=== PATIENT | female | born 2000 | race African-American/Black ===

== ENCOUNTER 2019-08-28 18:16 | Observation (INO) | payer OTHER, SELFPAY ==
[2019-08-28] VITALS (11 sets, daily range): BP systolic 101–110; BP diastolic 48–62; PULSE 90–122; TEMP 36.9; O2SAT 98–100; BMI 27.0
--- NOTE | 2019-08-28 18:16 | OBADM ---
This patient, Sayra Hsu, admitted to the OB room OB Post 117 for observation. Patient/family oriented to hospital policies and general routines including ID bracelet, bed and alarms, visiting hours, pain management, procedures, bathroom and other care routines, personal items, smoking policy, room service/diet, and visiting hours. Patient/Family are encouraged to report perceived risks to care and to ask questions if they do not understand what they are told or what they should do.
[2019-08-28 19:04] LABS: Add Urine Microscopic? YES; Appearance Urine Clear (Clear); Bacteria Urine Trace /hpf; Bilirubin Urine Negative (Negative); Blood Urine Negative (Negative); Color Urine Yellow (Yellow); Glucose Urine UA Negative (Negative); Ketones Urine Trace mg/dL (Negative); Leukocyte Esterase Ur 1+ LEU/UL (Negative); Mucus Urine Rare /lpf; Nitrate Urine Negative (Negative); Protein Urine 1+ mg/dL (Negative); RBC Urine 0-2 /hpf (0-2); Squamous Epithelial Cell Urine Many /hpf (Few)
[2019-08-28 19:08] LABS: Specific Grav Ur 1.032 (1.001-1.035)
--- NOTE | 2019-08-28 19:41 | PC.NURSE ---
Updated Dr. Cotton of S[facility] 1/thick/high. Patient uterus irritable with occasional contractions. Orders given.
[2019-08-28] MEDS: TERBUTALINE SULFATE 1 MG/ML VIAL 0.25 MG SUB-Q (19:54)
--- NOTE | 2019-08-28 21:25 | PC.NURSE ---
Dr. Cotton updated on Uterine activity, FHT, VS, maternal assessment. Patient requesting to be discharged to home. Discharge orders received.
--- NOTE | 2019-08-28 21:35 | PC.NURSE ---
Discharge instructions reviewed with patient. labor precautions reviewed. Patient states understanding of discharge instructions and denies questions.
--- NOTE | 2019-09-01 07:24 | P.PNOB_ITS ---
OB - Triage/Final Diagnosis Evaluation Laboratory results: Laboratory Tests 08/28/19 18:52 Urine Color Yellow Urine Appearance Clear Urine pH 6.0 Ur Specific [place] 1.032 Urine Protein 1+ H Urine Glucose (UA) Negative Urine Ketones Trace Ur Blood (Man) Negative Urine Nitrate Negative Urine Bilirubin Negative Urine Urobilinogen 2.0 H Leukocyte Esterase Rfl 1+ H Urine RBC 0-2 Urine WBC 4-6 H Ur Squamous Epith Cells Many H Urine Bacteria Trace Urine Mucus Rare Final Diagnosis (1) contractions: Code(s): O47.9 - False labor, unspecified Status: Acute
== END 2019-08-28 21:39 | disposition home or self-care (01) ==
PROVIDERS: Admitting Provider Obstetrics & Gynecology; Visit Provider Obstetrics & Gynecology
DX: O47.03 False labor before 37 completed weeks of gestation, third trimester (principal); Z3A.30 30 weeks gestation of pregnancy
CPT/HCPCS: 81001; 84112; 96372; G0378; G0379; J3105

== ENCOUNTER 2019-09-20 14:54 | Observation (INO) | payer OTHER, SELFPAY ==
[2019-09-20] VITALS (7 sets, daily range): BP systolic 93–143; BP diastolic 50–105; PULSE 90–111; TEMP 36.1; BMI 27.3
--- NOTE | 2019-09-20 14:54 | OBADM ---
This patient, Sayra Hsu, admitted to the OB room OB Post 116 for observation. Patient/family oriented to hospital policies and general routines including ID bracelet, bed and alarms, visiting hours, pain management, procedures, bathroom and other care routines, personal items, smoking policy, room service/diet, and visiting hours. Patient/Family are encouraged to report perceived risks to care and to ask questions if they do not understand what they are told or what they should do.
[2019-09-20 15:58] LABS: Add Urine Microscopic? YES; Appearance Urine Clear (Clear); Bacteria Urine Trace /hpf; Bilirubin Urine Negative (Negative); Blood Urine Negative (Negative); Color Urine Yellow (Yellow); Glucose Urine UA Negative (Negative); Ketones Urine Negative (Negative); Leukocyte Esterase Ur Negative LEU/UL (NEGATIVE); Mucus Urine Rare /lpf; Nitrate Urine Negative (Negative); Protein Urine Negative (Negative); RBC Urine 0-2 /hpf (0-2); Specific Grav Ur 1.023 (1.001-1.035); Squamous Epithelial Cell Urine Many /hpf (Few)
[2019-09-20] MEDS: NIFEdipine 30 MG TAB.ER.24 PO (16:50)
--- NOTE | 2019-09-20 19:00 | PC.NURSE ---
Discussed with pt and S.O. plan of care after no change from [facility]. Pt chose to be discharged home. Instructed pt to return to the hospital if any increase in contractions. Verbalized understanding.
--- NOTE | 2019-09-23 07:40 | PM.OBTRLD ---
OB - Triage/Final Diagnosis Evaluation Laboratory results: Laboratory Tests 09/20/19 15:44 Urine Color Yellow Urine Appearance Clear Urine pH 7.0 Ur Specific [place] 1.023 Urine Protein Negative Urine Glucose (UA) Negative Urine Ketones Negative Ur Blood (Man) Negative Urine Nitrate Negative Urine Bilirubin Negative Urine Urobilinogen 2.0 H Ur Leukocyte Esterase Negative Urine RBC 0-2 Urine WBC 4-6 H Ur Squamous Epith Cells Many H Urine Bacteria Trace Urine Mucus Rare
--- NOTE | 2019-10-12 10:15 | PM.OBTRLD ---
OB - Triage/Final Diagnosis Visit Information Date of evaluation: 09/20/19 Evaluation Laboratory results: Laboratory Tests 09/20/19 15:44 Urine Color Yellow Urine Appearance Clear Urine pH 7.0 Ur Specific [place] 1.023 Urine Protein Negative Urine Glucose (UA) Negative Urine Ketones Negative Ur Blood (Man) Negative Urine Nitrate Negative Urine Bilirubin Negative Urine Urobilinogen 2.0 H Ur Leukocyte Esterase Negative Urine RBC 0-2 Urine WBC 4-6 H Ur Squamous Epith Cells Many H Urine Bacteria Trace Urine Mucus Rare Final Diagnosis (1) False labor: Code(s): O47.9 - False labor, unspecified Status: Acute
== END 2019-09-20 19:13 | disposition home or self-care (01) ==
PROVIDERS: Admitting Provider Obstetrics & Gynecology; Visit Provider Obstetrics & Gynecology
DX: O47.03 False labor before 37 completed weeks of gestation, third trimester (principal); Z3A.34 34 weeks gestation of pregnancy
CPT/HCPCS: 81001; 87086; A9270; G0378; G0379

== ENCOUNTER 2019-10-10 00:14 | Observation (INO) | payer OTHER, SELFPAY ==
[2019-10-10] VITALS (15 sets, daily range): BP systolic 78–114; BP diastolic 32–69; PULSE 75–114; TEMP 36.6–37; BMI 27.0
--- NOTE | 2019-10-10 00:14 | OBADM ---
This patient, Sayra Hsu, admitted to the OB room Labor/Delivery/Recovery 109 for observation. Patient/family oriented to hospital policies and general routines including ID bracelet, bed and alarms, visiting hours, pain management, procedures, bathroom and other care routines, personal items, smoking policy, room service/diet, and visiting hours. Patient/Family are encouraged to report perceived risks to care and to ask questions if they do not understand what they are told or what they should do.
--- NOTE | 2019-10-10 00:14 | LDADM ---
This patient, Sayra Hsu, was admitted to Labor/Delivery/Recovery 109 on 10/10/19 at 00:14. Plans for labor, pain management and were discussed with patient. Patient/family oriented to hospital policies and general routines including ID bracelet, bed and alarms, visiting hours, pain management, procedures, bathroom and other care routines, personal items, smoking policy, room service/diet and guest tray routines, security routines, and visiting hours. Patient/Family are encouraged to report perceived risks to care and to ask questions if they do not understand what they are told or what they should do. See OBIX for further documentation.
--- NOTE | 2019-10-10 00:30 | PC.NURSE ---
Gertrude Gilmore CNM in department. Updated on patient. Orders received. Strip reviewed.
[2019-10-10 01:02] LABS: Add Urine Microscopic? YES; Appearance Urine Clear (Clear); Bilirubin Urine Negative (Negative); Blood Urine 1+ (Negative); Color Urine Yellow (Yellow); Glucose Urine UA Negative (Negative); Ketones Urine Trace mg/dL (Negative); Leukocyte Esterase Ur 1+ LEU/UL (Negative); Mucus Urine Rare /lpf; Nitrate Urine Negative (Negative); Protein Urine Negative (Negative); RBC Urine 0-2 /hpf (0-2); Specific Grav Ur 1.011 (1.001-1.035); Squamous Epithelial Cell Urine Many /hpf (Few); Urobilinogen Urine Negative mg/dL (<2.0)
[2019-10-10 01:14] LABS: Amphetamine Screen Urine Negative (Negative); Barbiturate Screen Urine Negative (Negative); Benzodiazepines Screen Urine Negative (Negative); Cannabinoid Screen Urine Negative (Negative); Cocaine Screen Urine Negative (Negative); Methadone Screen Urine Negative (Negative); Opiate Screen Urine Negative (Negative); Phencyclidine Screen Urine Negative (Negative)
--- NOTE | 2019-10-10 02:30 | PC.NURSE ---
Updated Gertrude Gilmore CNM on SVE with cervical change. FHT reactive, contractions irregular. VSS and maternal assess WNL. Admission orders received.
[2019-10-10 03:01] LABS: Basophils Percent Auto 0.3 % (0.2-1.2); Eosinophils Percent Auto 0.3 % (0-4.4); Hematocrit 32.7 % (37.0-47.0); Hemoglobin 10.8 g/dL (12.0-15.0); Immature Granulocyte Absolute 0.07 K/mm3 (0.00-0.031); Immature Granulocyte Percent A 0.7 % (0-0.5); Lymphocytes Absolute Auto 1.82 K/mm3 (0.9-3.2); Lymphocytes Percent Auto 17.3 % (18.3-44.2); Mean Corpuscular Volume 81.8 fl (80-100); Mean Platelet Volume 11.7 fl (7.4-10.4); Monocytes Absolute Auto 0.5 K/mm3 (0.1-0.6); Monocytes Percent Auto 4.7 % (2.6-8.5); Neutrophils Absolute Auto 8.1 K/mm3 (1.3-6.7); Neutrophils Percent Auto 76.7 % (45.5-73.1); Platelet Count Result 181 k/mm3 (150-375); Red Cell Distribution Width 13.7 % (11.5-14.5); White Blood Count 10.5 K/mm3 (4.5-10.0)
[2019-10-10] MEDS: LACTATED RINGERS 1,000 ML 125 ML IV CONT (03:04)
--- NOTE | 2019-10-10 05:43 | PC.NURSE ---
Updated Gertrude Gilmore CNM on maternal assessment. SVE unchanged overnight at 3/75/-2. Patient sleeping comfortably with irregular contractions. FHT reactive. Discharge order received. Patient comfortable going home.
[2019-10-10 11:35] LABS: Rapid Plasma Reagin Non-Reactive (NonReactive)
--- NOTE | 2019-10-14 07:14 | P.PNOB_ITS ---
OB - Triage/Final Diagnosis Visit Information Comments/Additional reasons for admission: 10/08/2019 contractions Evaluation Laboratory results: Laboratory Tests 10/10/19 10/10/19 10/10/19 00:47 00:47 02:50 WBC 10.5 H RBC 4.00 L Hgb 10.8 L Hct 32.7 L MCV 81.8 MCH 27.0 MCHC 33.0 RDW 13.7 Plt Count 181 MPV 11.7 H Immature Gran % (Auto) 0.7 H Neut % (Auto) 76.7 H Lymph % (Auto) 17.3 L [place] % (Auto) 4.7 Eos % (Auto) 0.3 Baso % (Auto) 0.3 Lymph # (Auto) 1.82 [place] # (Auto) 0.5 Eos # (Auto) 0.0 Baso # (Auto) 0.0 Abs Immat Gran (auto) 0.07 H Absolute Neuts (auto) 8.1 H Absolute Nucleated RBC 0.0 Nucleated RBC % 0.0 Urine Color Yellow Urine Appearance Clear Urine pH 6.0 Ur Specific [place] 1.011 Urine Protein Negative Urine Glucose (UA) Negative Urine Ketones Trace Ur Blood (Man) 1+ H Urine Nitrate Negative Urine Bilirubin Negative Urine Urobilinogen Negative Leukocyte Esterase Rfl 1+ H Urine RBC 0-2 Urine WBC 7-9 H Ur Squamous Epith Cells Many H Urine Mucus Rare Urine Opiates Screen Negative Urine Methadone Screen Negative Ur Barbiturates Screen Negative Ur Phencyclidine Scrn Negative Ur Amphetamine Screen Negative U Benzodiazepines Scrn Negative Urine Cocaine Screen Negative U Cannabinoids Screen Negative RPR Blood Type Antibody Screen 10/10/19 10/10/19 02:50 02:50 WBC RBC Hgb Hct MCV MCH MCHC RDW Plt Count MPV Immature Gran % (Auto) Neut % (Auto) Lymph % (Auto) [place] % (Auto) Eos % (Auto) Baso % (Auto) Lymph # (Auto) [place] # (Auto) Eos # (Auto) Baso # (Auto) Abs Immat Gran (auto) Absolute Neuts (auto) Absolute Nucleated RBC Nucleated RBC % Urine Color Urine Appearance Urine pH Ur Specific [place] Urine Protein Urine Glucose (UA) Urine Ketones Ur Blood (Man) Urine Nitrate Urine Bilirubin Urine Urobilinogen Leukocyte Esterase Rfl Urine RBC Urine WBC Ur Squamous Epith Cells Urine Mucus Urine Opiates Screen Urine Methadone Screen Ur Barbiturates Screen Ur Phencyclidine Scrn Ur Amphetamine Screen U Benzodiazepines Scrn Urine Cocaine Screen U Cannabinoids Screen RPR Non-reactive Blood Type B Positive Antibody Screen Negative
== END 2019-10-10 06:14 | disposition home or self-care (01) ==
PROVIDERS: Advanced Practice Midwife; Admitting Provider Obstetrics & Gynecology; Visit Provider Obstetrics & Gynecology
DX: O60.00 Preterm labor without delivery, unspecified trimester (principal); Z3A.00 Weeks of gestation of pregnancy not specified
CPT/HCPCS: 36415; 80307; 81001; 85025; 86592; 86850; 86900; 86901; 87086; G0378; G0379; J7120

== ENCOUNTER 2019-10-24 12:54 | Inpatient (IN) | payer OTHER, SELFPAY ==
[2019-10-24] VITALS (62 sets, daily range): BP systolic 78–124; BP diastolic 36–77; PULSE 64–123; RESP 18; TEMP 36.6–37; O2SAT 98–100; BMI 27.3
--- NOTE | 2019-10-24 13:31 | WPDOBADMIT ---
Obstetrics - Admit Note Admission Note: record reviewed. No pertinent additions to the history and/or any subsequent changes in the physical findings that are not consistent with the expected course of the were found.Pt arrived in active labor 2-5/100/-1, bright light negative,mika regularly, AROM large amount of clear/odorless fluid. hx of demise at 19 weeks, HSV-2, FGR, last us showing EFW 7%, anticipate vaginal delivery Additions to the history and/or subsequent changes in the physical findings follow. None.
--- NOTE | 2019-10-24 13:34 | LDADM ---
This patient, Sayra Hsu, was admitted to Labor/Delivery/Recovery 105 on 10/24/19 at 12:54. Plans for labor, pain management and were discussed with patient. Patient/family oriented to hospital policies and general routines including ID bracelet, bed and alarms, visiting hours, pain management, procedures, bathroom and other care routines, personal items, smoking policy, room service/diet and guest tray routines, security routines, and visiting hours. Patient/Family are encouraged to report perceived risks to care and to ask questions if they do not understand what they are told or what they should do. See OBIX for further documentation.
[2019-10-24 13:42] LABS: Basophils Percent Auto 0.4 % (0.2-1.2); Eosinophils Absolute Auto 0.1 K/mm3 (0-0.3); Eosinophils Percent Auto 0.7 % (0-4.4); Hematocrit 34.3 % (37.0-47.0); Hemoglobin 11.4 g/dL (12.0-15.0); Immature Granulocyte Absolute 0.11 K/mm3 (0.00-0.031); Immature Granulocyte Percent A 1.1 % (0-0.5); Lymphocytes Absolute Auto 1.47 K/mm3 (0.9-3.2); Lymphocytes Percent Auto 15.1 % (18.3-44.2); Mean Corpuscular HGB Conc 33.2 g/dl (32-36); Mean Corpuscular Hemoglobin 26.5 pg (26-34); Mean Corpuscular Volume 79.6 fl (80-100); Mean Platelet Volume 11.5 fl (7.4-10.4); Monocytes Absolute Auto 0.5 K/mm3 (0.1-0.6); Monocytes Percent Auto 5.3 % (2.6-8.5); Neutrophils Absolute Auto 7.5 K/mm3 (1.3-6.7); Neutrophils Percent Auto 77.4 % (45.5-73.1); Platelet Count Result 198 k/mm3 (150-375); Red Blood Count 4.31 M/mm3 (4.2-5.4); Red Cell Distribution Width 14.2 % (11.5-14.5); White Blood Count 9.7 K/mm3 (4.5-10.0)
[2019-10-24] MEDS: ONDANSETRON INJ 4 MG/2 ML VIAL IV PUSH (14:48)
[2019-10-24] MEDS: LACTATED RINGERS 1,000 ML 125 ML IV CONT ×2 (15:14→16:07)
--- NOTE | 2019-10-24 16:17 | WPDANESEPP ---
Anes - Eval Pre Procedure Procedure: labor epidural Date/Time: 10/24/19 16:17 Surgeon: jose a Preop Diagnosis: labor pain Pre Op Diagnosis: Contractions Patient Data Age: 19 Gender: F Height: 1.57 m Weight: 68 kg Last Vital Signs Pulse 103 H 10/24/19 16:16 BP 97/59 L 10/24/19 16:16 Pulse Ox 100 10/24/19 16:15 Allergies Allergy/AdvReac Type Severity Reaction Status Date / Time morphine Allergy Hives Verified 09/20/19 16:32 Home Medications Medication Instructions Recorded Confirmed Type Vitamin 1 tablet PO DAILY 10/10/19 10/10/19 History aspirin 81 mg PO DAILY 10/10/19 10/10/19 History levetiracetam 1,000 mg PO DAILY 10/10/19 10/10/19 History valacyclovir 10/10/19 History Laboratory Tests 10/24/19 10/24/19 10/24/19 13:36 13:36 13:36 WBC 9.7 K/mm3 K/mm3 (4.5-10.0) RBC 4.31 M/mm3 M/mm3 (4.2-5.4) Hgb 11.4 g/dL L g/dL (12.0-15.0) Hct 34.3 % L % (37.0-47.0) MCV 79.6 fl L fl (80-100) MCH 26.5 pg pg (26-34) MCHC 33.2 g/dl g/dl (32-36) RDW 14.2 % % (11.5-14.5) Plt Count 198 k/mm3 k/mm3 (150-375) MPV 11.5 fl H fl (7.4-10.4) Immature Gran % (Auto) 1.1 % H % (0-0.5) Neut % (Auto) 77.4 % H % (45.5-73.1) Lymph % (Auto) 15.1 % L % (18.3-44.2) [place] % (Auto) 5.3 % % (2.6-8.5) Eos % (Auto) 0.7 % % (0-4.4) Baso % (Auto) 0.4 % % (0.2-1.2) Lymph # (Auto) 1.47 K/mm3 K/mm3 (0.9-3.2) [place] # (Auto) 0.5 K/mm3 K/mm3 (0.1-0.6) Eos # (Auto) 0.1 K/mm3 K/mm3 (0-0.3) Baso # (Auto) 0.0 K/mm3 K/mm3 (0.0-0.1) Abs Immat Gran (auto) 0.11 K/mm3 H K/mm3 (0.00-0.031) Absolute Neuts (auto) 7.5 K/mm3 H K/mm3 (1.3-6.7) Absolute Nucleated RBC 0.0 K/mm3 K/mm3 (0.0-0.012) Nucleated RBC % 0.0 % % (0.0-0.2) RPR Pending Blood Type B Positive Antibody Screen Negative Patient hx anesthesia problems: none Family hx anesthesia problems: none PMFSH Family History Family History Mother Breast cancer Social History Social History Smoking status: Never smoker Substance use: never Gender identity (if verbalized by the patient): Female Spiritual care concerns: No Exam Day of Procedure 10/24/19 16:17 Patient weight: normal Heart: regular rate and rhythm Lungs: normal air movement Airway: Mallampati scale class II Neurological: alert and oriented
[2019-10-24] MEDS: OXYTOCIN 30 UNITS/NS 500 ML 30 UNITS/500 ML BAG 999 UNITS IV CONT (18:33)
--- NOTE | 2019-10-24 18:39 | PM.OBPRVD ---
OB - Delivery Note Procedure Delivery date: 10/24/19 Procedure: vaginal delivery events: Placental Insufficiency (FGR 7%) Intrapartal events: None Delivery augmentation: rupture of membranes Delivery monitor: external FHT and external uterine Route of delivery: Laceration description: Vaginal - 1st Degree Delivery repair: vicryl Specimen: Yes Estimated blood loss (mL): 217 Anesthesia type: Epidural Disposition: other () Baby Date of : 10/24/19 Time of : 18:29 Weeks of gestation at delivery: 38 Infant gender: Male Weight (pounds): 6 Weight (ounces): 1 presentation: vertex position: Right Occiput Anterior Placenta delivery description: Spontaneous cord vessel description: 3 Vessels and Clamped/Cut score one minute: 8 score five minutes: 9 Narrative: mother and baby in stable condition
[2019-10-24] MEDS: OXYTOCIN 30 UNITS/NS 500 ML 30 UNITS/500 ML BAG 125 UNITS IV CONT (19:11)
[2019-10-24] MEDS: IBUPROFEN 600 MG TABLET PO (20:02)
[2019-10-24] MEDS: BENZOCAINE 20% AER SPR (*SP) 56 GM CAN 1 SPRAY TOPICAL (20:02)
[2019-10-24] MEDS: WITCH HAZEL 40 PADS 1 PAD TOPICAL (20:02)
[2019-10-24] MEDS: ACETAMINOPHEN 325 MG TABLET 650 MG PO (22:09)
--- NOTE | 2019-10-25 00:48 | PC.NURSE ---
10/24/19 @ 2119. Patient transferred to post room #282 in wheelchair. Support person present. Oriented to unit, room, information board, rooming in, admission packet and security measures. Patient verbalizes understanding.
[2019-10-25 05:44] LABS: Hematocrit 30.9 % (37.0-47.0); Hemoglobin 10.3 g/dL (12.0-15.0)
[2019-10-25] MEDS: ACETAMINOPHEN 325 MG TABLET 650 MG PO ×3 (07:19→21:35)
[2019-10-25] MEDS: DOCUSATE SODIUM 100 MG CAPSULE PO ×2 (07:19→16:26)
[2019-10-25] MEDS: IBUPROFEN 600 MG TABLET PO ×3 (07:20→18:50)
[2019-10-25] MEDS: MULTIVIT/MIN/PREN/FOL AC/IRON TABLET 1 TAB PO (07:21)
[2019-10-25] MEDS: LANOLIN (LANSINOH) 7.5 GM CREAM 1 APPLIC TOPICAL (07:21)
--- NOTE | 2019-10-25 07:52 | WPDANLDPN2 ---
Anes-Prog Note L&D Date/Time: 10/25/19 07:52 Comfortable throughout: labor and delivery Neuraxial method: epidural Epidural/Spinal procedure site: clean & non-tender Neuro status: Neuro function grossly intact. Cardiovascular status: normal Respiratory status: normal Airway patency: baseline Mental status: baseline Post-Op hydration status: normal Vital Signs: Last Vital Signs Temp 37.0 C 10/24/19 21:20 Pulse 94 10/24/19 21:20 Resp 18 10/24/19 21:20 BP 103/66 10/24/19 21:20 Pulse Ox 100 10/24/19 21:20 I/O: Intake & Output 10/24/19 10/24/19 10/25/19 15:59 23:59 07:59 Intake Total 2500 Output Total 270 Balance 2230 Post-procedural complaints: none Patient feedback: Patient satisfied with anesthetic care.
[2019-10-25 08:00] VITALS: BP 96/67; PULSE 76; RESP 18; TEMP 36.8; O2SAT 99
--- NOTE | 2019-10-25 08:03 | PM.OBPNVD ---
OB - PN: Subj Subjective Date/time seen: 10/25/19 08:03 Patient comments: no complaints, pain well controlled and other (Lochia similar to menses) [place] baby status: doing well OB - PN: Obj Data Labs CBC & Chem 7: 10/25/19 04:16 Labs: Laboratory Results - last 24 hr 10/24/19 10/24/19 10/25/19 13:36 13:36 04:16 WBC 9.7 RBC 4.31 Hgb 11.4 L 10.3 L Hct 34.3 L 30.9 L MCV 79.6 L MCH 26.5 MCHC 33.2 RDW 14.2 Plt Count 198 MPV 11.5 H Immature Gran % (Auto) 1.1 H Neut % (Auto) 77.4 H Lymph % (Auto) 15.1 L [place] % (Auto) 5.3 Eos % (Auto) 0.7 Baso % (Auto) 0.4 Lymph # (Auto) 1.47 [place] # (Auto) 0.5 Eos # (Auto) 0.1 Baso # (Auto) 0.0 Abs Immat Gran (auto) 0.11 H Absolute Neuts (auto) 7.5 H Absolute Nucleated RBC 0.0 Nucleated RBC % 0.0 Blood Type B Positive Antibody Screen Negative OB - PN A/P Plan day: 1 (s/p vaginal delivery, doing well) Plan: routine care Time Spent With Patient Time: Total time spent is greater than 50% in coordination of care (as documented) at patient's floor/unit and/or counseling patient: Exam Const: General: no acute distress GI: Inspection: other (Fundus firm and nontender at umbilicus) GI Palp: Yes Soft to palpation and No Tenderness to palpation present (GI) Extrem: General: no edema
--- NOTE | 2019-10-25 09:20 | PC.NURSE ---
Mother called out for assist with feeding. Consulted with patient, mother reports has had issues with latching and is using a nipple shield to latch at times. Mother states infant does not open wide to obtain a deep latch and will not stay awake and will fall asleep and release latch. Reviewed feeding cues, frequencies, duration of feedings, feeding elimination flow sheet, and signs of adequate intake. Demonstrated stimulation techniques to wake infant for feeding. Assisted with infant to breast. Reviewed positioning/alignment in cross cradle, holding breast in U hold and guided asymmetrical latch on. Discussed rational for each. Several attempts for to latch, infant does not open wide to allow nipple in. Mother wanted to attempt with nipple shield, Discussed nipple shield precautions and possible complications. Instructions given on application and cleaning of shield. Patient able to return demonstration on proper application of shield. Discussed the need to initiate pumping if infant continues to nurse with the shield. Patient verbalizes understanding. Several attempts before was able to latch correctly. Infant kept tongue up and did not allow for correct latch. Discussed how the shield may assist with tongue training. With shield in place, was able to latch correctly. Infant made no effort to suckle. Several attempts made to stimulate infant to suckle. Attempt for 20 minutes. Discussed feeding options at this time. Mother would like to receive supplementation. supplemented 15mls by mother. Nipple care reviewed. Instructed mother to call out for RN assistance if she is unable to latch infant for feeding or she has discomfort with nursing. Instructed feeding should be initiated three hours from start of last feeding or if feeding cues are noted before. Mother voiced understanding of information shared.
[2019-10-25 09:47] LABS: Rapid Plasma Reagin Non-Reactive (NonReactive)
--- NOTE | 2019-10-25 13:00 | PC.NURSE ---
Mother called out for assist with feeding. is sleeping in open crib. Demonstrated stimulation techniques to wake for feeding. is awake with feeding cues noted. Assisted with infant to breast. Reviewed positioning/alignment in cross cradle, holding breast in U hold and guided asymmetrical latch on. Several attempts before infant was able to latch correctly. does not open wide to allow deep latch. Once on nursed eagerly, with steady draws and occasional swallowing noted. will pause with no suckling, he is awake. stimulated to suckle, with short burst and repeating above. was on and off several times during attempt of 20 minutes. Reviewed signs of a correct latch, effective nursing and suck swallow ratio. Infant supplemented 15mls by FOB.
--- NOTE | 2019-10-25 13:30 | PC.NURSE ---
Breast pump provided due to ineffective feeding. Instructions given on breast pump care and usage, pumping schedule, nipple care, and collection and storage of breast milk. Encouraged [id number], breast massage and manual expression to stimulate supply. Assessed patient for correct flange size, placement and draw. Patient verbalizes and demonstrates understanding of instructions.
[2019-10-25 20:25] VITALS: BP 97/54; PULSE 70; RESP 16; TEMP 36.7
[2019-10-26] MEDS: IBUPROFEN 600 MG TABLET PO ×2 (02:15→08:14)
[2019-10-26] MEDS: ACETAMINOPHEN 325 MG TABLET 650 MG PO ×2 (03:10→12:32)
--- NOTE | 2019-10-26 07:33 | PM.OBPNVD ---
OB - PN: Subj Subjective Date/time seen: 10/26/19 07:33 Patient comments: no complaints baby status: doing well [place] feeding status: breast and bottle feeding OB - PN: Obj Data Labs CBC & Chem 7: 10/25/19 04:16 Labs: Laboratory Results - last 24 hr 10/24/19 13:36 RPR Non-reactive OB - PN A/P Plan day: 2 Plan: discharge home Time Spent With Patient Time: Total time spent is greater than 50% in coordination of care (as documented) at patient's floor/unit and/or counseling patient: Review of Systems Review of Systems: All systems reviewed & are unremarkable except as noted in HPI and below Exam Const: General: comfortable Resp: Effort & Inspection: normal respiratory effort Psych: Appearance: grossly normal Affect: normal affect Attitude: cooperative Judgement: Good judgement present (Psych)
--- NOTE | 2019-10-26 07:34 | PM.OBDSVD ---
OB - DS: Summary OB Procedures : None OB Procedures Intrapartum: Spontaneous Vag Delivery OB Procedures: : None Time Spent with Patient Time attestation: Total time spent providing and/or coordinating discharge services: DS: Data Data Completed and Pending Pending studies at discharge: Pending at discharge 10/24/19 18:40 Surgical [PTH] Routine Labs on day of discharge: Labs from last 24 hours 10/24/19 13:36 RPR Non-reactive Discharge Plan Discharge Attending physician on discharge: Slava Suarez Discharging Clinician: Fanny Gilmore Patient Disposition: Home, Self-Care Activity: pelvic rest Diet: regular Patient Instructions: Antibiotic Form Stand Alone Forms: General Discharge Information Follow-up/Referrals: Fanny Gilmore CNM [Primary Care Provider] - 4 Weeks Discharge Medications: New ibuprofen 600 mg Tablet 600 mg PO Q6H PRN (Reason: Cramping) Qty: 30 RF: 0 Continued Vitamin 27 mg iron- 0.8 mg Tablet 1 tablet PO DAILY RF: 0 levetiracetam 1,000 mg tablet 1,000 mg PO DAILY RF: 0 valacyclovir 500 mg tablet RF: 0 Discontinued aspirin 81 mg tablet,delayed release (DR/EC) 81 mg PO DAILY RF: 0 Date of admission: 10/24/19 12:54 Primary Care Provider: Fanny Gilmore Admitting Provider: Slava Suarez Attending physician on admission: Slava Suarez
[2019-10-26 08:05] VITALS: BP 100/65; PULSE 66; RESP 16; TEMP 36.9; O2SAT 99
[2019-10-26] MEDS: MULTIVIT/MIN/PREN/FOL AC/IRON TABLET 1 TAB PO (08:14)
[2019-10-26] MEDS: DOCUSATE SODIUM 100 MG CAPSULE PO (08:14)
--- NOTE | 2019-10-26 10:30 | PC.NURSE ---
Mother reports has been more awake and eager to latch the last few feedings, she is able to independently latch with appropriate positioning/alignment. She denies any nipple discomfort, is feeding as required and waking infant to feed if needed. will continue with current feeding plan of and supplementation after. is currently meeting outcomes for weight, output, jaundice and feeding frequencies. Mother states she feels confident to continue current feeding plan at home. Reviewed transition to breast milk, signs of adequate intake, and engorgement/relief. Instructed to call ICP if intake/output less than required. Reviewed regular medications mother is taking. Information provided per Taryn. Discussed when to increase supplementation and signs when is ready to decrease supplementation. Advised not to discontinue supplementation until seen by ICP at 1 week. Reviewed community resources on the [facility] website and in the Mom/Baby guide. Information on outpatient services provided. Mother has no further questions at this time.
--- NOTE | 2019-10-26 10:49 | PC.NURSE ---
Patient viewed the discharge video Mother & Baby Care, The First Two Weeks . Patient was given the opportunity and encouraged to ask questions. Patient verbalized understanding of information shared and has been given the mother/baby guide for home reference.
== END 2019-10-26 13:20 | disposition home or self-care (01) | DRG 560 ==
LOC: ANHLDR 13:49 → ANHOB2 21:21
PROVIDERS: Admitting Provider Obstetrics & Gynecology; PCP Advanced Practice Midwife; Visit Provider Obstetrics & Gynecology
DX: O99.354 Diseases of the nervous system complicating childbirth (principal); Z37.0 Single live birth; Z3A.38 38 weeks gestation of pregnancy; G40.909 Epilepsy, unspecified, not intractable, without status epilepticus; O36.5130 Maternal care for known or suspected placental insufficiency, third trimester, not applicable or unspecified; O70.0 First degree perineal laceration during delivery; O99.89 Other specified diseases and conditions complicating pregnancy, childbirth and the puerperium; M41.9 Scoliosis, unspecified; O98.52 Other viral diseases complicating childbirth; B00.9 Herpesviral infection, unspecified
CPT/HCPCS: 36415; 85014; 85018; 85025; 86592; 86850; 86900; 86901; 88307; A9270; J2405; J2590; J2795; J3010; J7120

== ENCOUNTER 2024-07-25 14:52 | Observation (INO) | payer OTHER, SELFPAY ==
--- NOTE | 2024-07-25 15:00 | OBADM ---
This patient, Sayra Hsu, admitted to the OB room OB Post 113 for observation. Patient/family oriented to hospital policies and general routines including ID bracelet, bed and alarms, visiting hours, pain management, procedures, bathroom and other care routines, personal items, smoking policy, room service/diet, and visiting hours. Patient/Family are encouraged to report perceived risks to care and to ask questions if they do not understand what they are told or what they should do.
[2024-07-25 15:16] VITALS: BP 103/62; PULSE 97
[2024-07-25 15:30] VITALS: BP 99/55; PULSE 89
[2024-07-25 15:45] VITALS: BP 99/67; PULSE 95
--- NOTE | 2024-07-25 15:50 | PC.NURSE ---
Dr Suarez notified of adm, contractions pattern, orders for SVE and if closed may DC home.
--- OUTSIDE RECORDS SUMMARY | 2024-07-25 17:25 | XMS_ITS | Referral Summary ---
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 resonance imaging (MRI) of the brain and brainstem without contrast HISTORY: left facial numbness left facial numbness, IAC protocol TECHNIQUE: Multiplanar multi-weighted MRI of the brain and brainstem was performed without intravenous contrast using the general brain protocol. Additionally sequences detailing the internal auditory canals and posterior fossa were acquired as a part of the internal auditory canal protocol. COMPARISON: None Available. FINDINGS: The cerebellopontine angles are normal, with no evidence of extra-axial mass or aneurysm. The VII/VIII nerve complexes appear normal. The upper cervical spinal cord and spine are normal. The scalp and calvarium are normal. The superior sagittal sinus demonstrates normal venous flow. The corpus callosum is normal in shape and signal intensity. The posterior fossa is unremarkable. The pituitary and sella are normal. The brainstem and craniocervical junction are unremarkable. Diffusion weighted images reveal no hyperintensities to suggest acute cerebral infarction. The susceptibility weighted sequences reveal no evidence of acute or chronic hemorrhage. The ventricles are normal in size and position without evidence of hydrocephalus. The paranasal sinuses are normal. The visualized portions of the mastoids are unremarkable. The orbits appear normal. Normal flow voids are demonstrated in the carotid arteries and basilar artery. IMPRESSION: No lesions in the posterior fossa, internal auditory canals, or temporal bones to explain the patient's hearing loss. Dictated by: Fanny Adamson D.O. The radiology attending physician has personally reviewed this study, and had reviewed and/or edited this written report and agrees with it. Electronically signed by: Sahara Muñoz M.D. us Geno Bhakta MD IMG MRI PROCEDURES Final R esult * (ABNORMAL) Levetiracetam level (06/21/2024 9:33 PM BIGHT MAKER) Levetiracetam (Keppra) <1.0(L) 10.0 - 40.0 mcg/mL [facility] Comment: ADDITIONAL INFORMATION This test was developed and its performance characteristics determined by [facility] in a manner consistent with CLIA requirements. This test has not been cleared or approved by the U.S. Food and Drug Administration. Test Performed by: [facility] [place] [address] Robot Technician: Junie Marie Ph.D.; CLIA# [id number] Blood 06/21/2024 9:33 PM BIGHT MAKER 06/21/2024 9:34 PM BIGHT MAKER us Daysi Metz MD LAB BLOOD ORDERABLE S Final Result [facility] [place] [facility] Department [place] [address] [facility] ref [facility] * eGFR (06/21/2024 7:57 PM BIGHT MAKER) eGFR >90 >=60 mL/min/1. 73 m2 Comment: Interpretive Data Reference Interval Normal >/= 90 mL/min/1.73m2 Mildly decreased* 60 - 89 mL/min/1.73m2 Mildly to moderately decreased 45 - 59 mL/min/1.73m2 Moderately to severely decreased 30 - 44 mL/min/1.73m2 Severely decreased 15 - 29 mL/min/1.73m2 Kidney Failure < 15 mL/min/1.73m2 *Relative to young adult level Estimated glomerular filtration rate is determined by the 2020 CKD-EPI equation recommended by the National Kidney [employer] (A Unifying Approach to GFR Estimation: Recommendations of the NKF-ASK Task Force on Reassessing the Inclusion of Race in Diagnosing Kidney Disease, JASN 2020). The CKD-EPI equation should not be used for patients with unstable renal function and has not been validated in children and those over 70. Current interpretive data was last reviewed 2021. Blood 06/21/2024 7:57 PM BIGHT MAKER 06/21/2024 8:01 PM BIGHT MAKER us Daysi Metz MD LAB BLOOD ORDERABLE S Final Result [facility] ([place]) [facility] Department [place] [address] * Differential, auto (06/21/2024 7:57 PM BIGHT MAKER) Neutrophil abs 5.8 1.5 - 6.5 K/cumm Imm gran abs 0.1 0.0 - 0.1 K/cumm [facility] ([place]) Lymphocyte abs 1.8 0.8 - 3.3 K/cumm [facility] ([place]) Monocyte abs 0.5 0.2 - 0.8 K/cumm [facility] ([place]) Eosinophil abs 0.1 0.0 - 0.5 K/cumm [facility] ([place]) Basophil abs 0.0 0.0 - 0.1 K/cumm [facility] ([place]) Neutrophil pct 69.6 % [facility] ([place]) Comment: Interpretive Data Percent cell count reference ranges are not reported, since discordance with absolute values may lead to misinterpretation of CBC data. Current Interpretive Data was last revised on 2017. Imm gran pct 0.8 % [facility] ([place]) Comment: Interpretive Data Percent cell count reference ranges are not reported, since discordance with absolute values may lead to misinterpretation of CBC data. Current Interpretive Data was last revised on 2017. Lymphocyte pct 21.6 % [facility] ([place]) Comment: Interpretive Data Percent cell count reference ranges are not reported, since discordance with absolute values may lead to misinterpretation of CBC data. Current Interpretive Data was last revised on 2017. Monocyte pct 6.5 % [facility] ([place]) Comment: Interpretive Data Percent cell count reference ranges are not reported, since discordance with absolute values may lead to misinterpretation of CBC data. Current Interpretive Data was last revised on 2017. Eosinophil pct 1.1 % [facility] ([place]) Comment: Interpretive Data Percent cell count reference ranges are not reported, since discordance with absolute values may lead to misinterpretation of CBC data. Current Interpretive Data was last revised on 2017. Basophil pct 0.4 % [facility] ([place]) Comment: Interpretive Data Percent cell count reference ranges are not reported, since discordance with absolute values may lead to misinterpretation of CBC data. Current Interpretive Data was last revised on 2017. Blood 06/21/2024 7:57 PM BIGHT MAKER 06/21/2024 8:01 PM BIGHT MAKER us Daysi Metz MD LAB BLOOD ORDERABLE S Final Result [facility] ([place] Department [place] [address] * (ABNORMAL) CBC with auto differential (06/21/2024 7:57 PM BIGHT MAKER) WBC 8.3 3.8 - 9.9 K/cumm Hgb 9.3(L) 11.9 - 15.5 g/dL [facility] ([place]) Hct 28.1(L) 35.6 - 45.5 % [facility] ([place]) Plt 143(L) 150 - 400 K/cumm [facility] ([place]) MPV 10.9 9.1 - 12.3 fL [facility] ([place]) RBC 3.35(L) 3.90 - 5.20 M/cumm [facility] ([place]) MCV 83.9 81.3 - 96.4 fL [facility] ([place]) MCH 27.8 27.1 - 33.3 pg [facility] ([place]) MCHC 33.1 32.3 - 35.7 g/dL [facility] ([place]) RDW CV 12.6 11.1 - 14.9 % [facility] ([place]) RDW SD 38.2 35.7 - 48.1 fL [facility] NRBC abs 0.00 0.00 - 0.01 K/cumm [facility] Blood 06/21/2024 7:57 PM BIGHT MAKER 06/21/2024 8:01 PM BIGHT MAKER us Daysi Metz MD LAB BLOOD ORDERABLE S Final Result [facility] ([place] Department [place] [address] * (ABNORMAL) Comprehensive metabolic panel (06/21/2024 7:57 PM BIGHT MAKER) Sodium 135 135 - 145 mmol/L Potassium, pl 3.8 3.3 - 4.9 mmol/L [facility] Chloride 104 97 - 110 mmol/L [facility]) CO2 22 22 - 32 mmol/L [facility] ([place]) Anion gap 9 2 - 15 mmol/L [facility] ([place]) BUN 10 6 - 25 mg/dL [facility] ([place]) Creatinine 0.61 0.60 - 1.10 mg/dL [facility] ([place]) Glucose 80 70 - 199 mg/dL [facility] Comment: Interpretive Data Fasting glucose >/= 126 mg/dl is diagnostic for diabetes. Fasting is defined as no caloric intake for at least 8 hours. Fasting glucose between 100 mg/dl to 125 mg/dl is diagnostic of prediabetes. In a patient with classic symptoms of hyperglycemia or hyperglycemic crisis, a random glucose >/= 200 mg/dl is diagnostic for diabetes. In the absence of unequivocal hyperglycemia, results should be confirmed by repeat testing. The classification and Diagnosis of Diabetes Diabetes Care 2021; 46: S19-S40. Current interpretive data was last revised 2022. Calcium 8.7 8.5 - 10.3 mg/dL [facility] ([place]) Bilirubin, total 0.3 0.1 - 1.2 mg/dL [facility] ([place]) Protein, pl 6.2(L) 6.5 - 8.5 g/dL [facility] ([place]) Albumin 3.3(L) 3.5 - 5.0 g/dL [facility] ([place]) Alk phos 84 40 - 130 Units/L [facility] ([place]) ALT 17 7 - 45 Units/L [facility] ([place]) AST 21 10 - 45 Units/L [facility] ([place]) Blood 06/21/2024 7:57 PM BIGHT MAKER 06/21/2024 8:01 PM BIGHT MAKER us Daysi Metz MD LAB BLOOD ORDERABLE S Final Result [facility] ([place] Department [place] [address] * Hepatitis C (HCV) RNA PCR, quantitative Blood (04/05/2024 4:25 PM BIGHT MAKER) [facility] HCV RNA result Not Detected [facility] Comment: The quantifiable range of this assay is 15 IU/mL to 100,000,000 IU/mL (1.18 log IU/mL to 8.00 log IU/mL). Testing was performed by the [facility] [id number] HCV Test ([employer] Testing performed at [facility] Current Interpretive Data was last revised on 2020 Testing performed by: [facility], [address] [facility], [place]., [address] Blood 04/05/2024 4:25 PM BIGHT MAKER 04/05/2024 8:55 PM BIGHT MAKER Narrative [facility] ([place]) - 04/06/2024 12:42 PM BIGHT MAKER Bill to [facility] - 9490 Patient is employed by/enrolled at:->[facility] us Nelson Marshall MD LAB MICROBIOLOGY - GENERAL OR DERABLES Final Result [facility] [place] [facility] [place] [address] [facility] * Pap with reflex to High Risk HPV (11/03/2022 7:43 AM CDT) Thin prep (Pap test) 11/03/2022 7:43 AM CDT 11/04/2022 7:43 AM CDT Narrative PATHOLOGY [facility] - 11/06/2022 3:19 PM CDT Department of Pathology [address] [place] [id number] Final Report Note to Patients: This report may contain a detailed description of human tissue sent by a health care provider to the laboratory for pathologic evaluation. The content of this report is essential for diagnosis and may provide important critical findings. This information may be unfamiliar to patients to review without a medical professional present. It is advised that the patient review this report in the presence of a health care provider who can answer questions and explain the details. Patient Name: SAYRA HSU Address: [address] [place] [address] Gender: F : 2000 (Age: 22) Service: Location: [facility] : [id number] [facility] #: [id number] Patient Type: SPECIMEN Taken: 11/03/2022 Received: 11/04/2022 Accessioned:: 11/05/2022 Reported: 11/06/2022 Physician(s): Carissa Caraballo D.O. 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 It should not be the sole means by which malignant and premalignant lesions are diagnosed. Both false negative and false positive results may occur. It also has poor sensitivity for the detection of endometrial lesions and should not be used to evaluate suspected endometrial abnormalities. For these reasons it is most important to obtain Pap tests at regular intervals. The performance characteristics of some immunohistochemical stains, fluorescence in-situ hybridization tests and immunophenotyping by flow cytometry cited in this report (if any) were determined by the Surgical Pathology Department at as part of an ongoing quality assurance advisor program and in compliance with federally mandated regulations drawn from the Clinical Laboratory Improvement Act of 1988 (CLIA '88). Some of these tests rely on the use of analyte specific reagents and are subject to specific labeling requirements by the US Food and Drug Administration. Such diagnostic tests may only be performed in a facility that is certified by the Department of Health and Human Services as a high complexity laboratory under CLIA '88. The FDA has determined that such clearance or approval is not necessary. This test is used for clinical purposes. It should not be regarded as investigational or for research. Nevertheless, federal rules concerning the medical use of analyte specific reagents require that the following disclaimer be attached to the report: This test was developed and its performance characteristics determined by the Surgical Pathology Department [facility]. It has not been cleared or approved by the U. S. Food and Drug Administration. Mckenna Rios DO LAB CYTOLOGY ORDERABLES Final Result PATHOLOGY [address] [place] [address] from Last 3 Months or Most Recently Relevant to Health Maintenance Insurance [facility] Advance Directives For more information, please contact: [phone] * Full Code (Latest Code Status on File) Date Activated Date Inactivated Comments 06/29/2021 8:18 PM 07/01/2021 4:43 PM * Full Code Date Activated Date Inactivated Comments 06/29/2021 9:49 AM 06/29/2021 8:18 PM Full CPR in case of cardiopulmonary arrest * Full Code Date Activated Date Inactivated Comments 11/01/2017 8:56 AM 11/02/2017 11:45 PM 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
--- OUTSIDE RECORDS SUMMARY | 2024-07-25 17:25 | XMS_ITS | Data Portability ---
Author Organization [facility] [place] [place] [facility] Address [address] [place] [place] [address] [place] [address] Assessment Encounter Date Assessment Date Assessment LastModified by Organization Details LastModified Time 05/13/2024 05/13/2024 Patient is __24_weeks . Discussed plan. [email or web address] Not available 05/13/2024 14:03:56 07/18/2024 07/18/2024 Patient is ___weeks . Discussed plan. [email or web address] Not available 07/18/2024 17:44:51 Plan of Treatment Reminders Order Date Submit Date Provider Last Modified By Organization Details Last Modified Time Details Appointments OB ROUTINE 2024 02:45P M Fanny Gilmore CNM Not available Not available Not available Lab drug screen, urine 2023 024 [email or web address] [address], [address], [place], [address], 02/24/2024 10:45:39 culture, urine 2023 024 [facility] ([facility]), [address], [place], [address], 02/26/2024 07:57:21 Referral None recorded. Procedures None recorded. Surgeries None recorded. Imaging US, obstetric , follow-up 2024 025 [email or web address] [address], [address], [place], [address], 07/18/2024 21:27:25 US, obstetric , biophysic al profile + non-stres s test 2024 [address], [address], [place], [address], 07/18/2024 21:27:25 US, doppler, umbilical artery velocimet ry 2024 [address], [address], [place], [address], 07/18/2024 21:27:25 US, obstetric , 2nd or 3rd trimester 2024 [address], [address], [place], [address], 07/04/2024 22:39:45 Medication Orders Zithromax Z-Tigre 250 mg tablet 2024 025 [id number], [address], [place], [id number], 05/13/2024 14:04:36 Patient TargetsNo targets recorded. Patient InstructionsNo instructions recorded. Reason for Referral None Reported. Results Created Date Observation Date Name Description Value Unit Range Abnormal Flag Note LastModifiedBy Organization Detail LastModifiedTime 02/12/20 24 02/12/2024 [UNIT Y] ANEUP LOIDY NIPT fraction 4.3% normal Not Available [facility] [address], [place], [address], 02/12/2024 18:30:05 02/12/20 24 02/12/2024 [UNIT Y] ANEUP LOIDY NIPT Rh(D) nipt RhD DETECT ED normal Not Available [facility] [address], [place], [address], 02/12/2024 18:30:05 02/12/20 24 02/12/2024 [UNIT Y] ANEUP LOIDY NIPT sex chromosome aneuploidy NOT DETECT ED normal Not Available [facility] [address], [place], [address], 02/12/2024 18:30:05 02/12/20 24 02/12/2024 [UNIT Y] ANEUP LOIDY NIPT monosomy X LOW RISK <1 in 10,000 normal Not Available [facility] [address] [address] [facility] [address], [place], [address], 02/12/2024 18:30:05 02/12/20 24 02/12/2024 [UNIT Y] ANEUP LOIDY NIPT trisomy 13 LOW RISK <1 in 10,000 normal Not Available [facility] [address] [facility] [address], [place], [address], 02/12/2024 18:30:05 02/12/20 24 02/12/2024 [UNIT Y] ANEUP LOIDY NIPT trisomy 18 LOW RISK <1 in 10,000 normal Not Available [facility] [address] [facility] [address], [place], [address], 02/12/2024 18:30:05 02/12/20 24 02/12/2024 [UNIT Y] ANEUP LOIDY NIPT trisomy 21 LOW RISK <1 in 10,000 normal Not Available [facility] [address] [facility] [address] [facility] [address], [place], [address], 02/12/2024 18:30:05 02/12/20 24 02/12/2024 [UNIT Y] ANEUP LOIDY NIPT sex MALE normal Not Available [facility] [address] [facility] [address] [facility] [address], [place], [address], 02/12/2024 18:30:05 02/12/20 24 02/12/2024 [UNIT Y] ANEUP LOIDY NIPT gestation SINGLE TON normal Not Available [facility] [address] [facility] [address], [place], [address], 02/12/2024 18:30:05 02/12/20 24 02/12/2024 [UNIT Y] ANEUP JODY CHILDERST for detailed report, see pdf See PDF normal Not Available [facility] [address], [place], [address], 02/12/2024 18:30:05 02/12/20 24 02/12/2024 [UNIT Y] SALAZAR Donaldson sickle cell disease/beta -thalassemia /hemoglobino pathies carrier screen NEGATI VE normal Not Available [facility] [address], [place], [address], 02/12/2024 22:17:27 02/12/20 24 02/12/2024 [UNIT Y] SALAZAR Donaldson alpha-thalas semia carrier screen NEGATI VE normal Not Available [facility] [address], [place], [address], 02/12/2024 22:17:27 02/12/20 24 02/12/2024 [UNIT Y] SALAZAR Donaldson cystic fibrosis carrier screen NEGATI VE normal Not Available [facility] [address], [place], [address], 02/12/2024 22:17:27 02/12/20 24 02/12/2024 [UNIT Y] SALAZAR Donaldson spinal muscular atrophy carrier screen NEGATI VE 3 SMN1 copies , SNP not presen t normal Not Available [facility] [address], [place], [address], 02/12/2024 22:17:27 02/12/20 24 02/12/2024 [UNIT Y] SALAZAR Donaldson for detailed report, see pdf See PDF normal Not Available [facility] [address], [place], [address], 02/12/2024 22:17:27 02/08/20 24 02/08/2024 CBC W/DIF F WBC 9.2 10'3/ uL 3.5-10 .5 Not Available [facility] (Lab) [address], [place], [address], 02/09/2024 20:04:48 02/08/20 24 02/08/2024 CBC W/DIF F RBC 4.30 10'6/ uL (based on docume nted legal sex) 3.80-5 .20 Not Available [facility] (Lab) [address] , [place], [address], 02/09/2024 20:04:48 02/08/20 24 02/08/2024 CBC W/DIF F HGB 12.5 g/dL (based on docume nted legal sex) 11.6-1 5.4 Not Available [facility] (Lab) [address] , [place], [address], 02/09/2024 20:04:48 02/08/20 24 02/08/2024 CBC W/DIF F HCT 37.3 % (based on docume nted legal sex) 34.0-4 5.0 Not Available [facility] (Lab) [address] , [place], [address], 02/09/2024 20:04:48 02/08/20 24 02/08/2024 CBC W/DIF F MCV 86.7 fL 80.0-9 9.0 Not Available [facility] (Lab) [address], [place], [address], 02/09/2024 20:04:48 02/08/20 24 02/08/2024 CBC W/DIF F MCH 29.1 pg 27.0-3 4.0 Not Available [facility] (Lab) [address], [place], [address], 02/09/2024 20:04:48 02/08/20 24 02/08/2024 CBC W/DIF F MCHC 33.5 g/dL 32.0-3 5.5 Not Available [facility] (Lab) [address] , [place], [address], 02/09/2024 20:04:48 02/08/20 24 02/08/2024 CBC W/DIF F RDW 12.4 % 11.0-1 5.0 Not Available [facility] (Lab) [address], [place], [address], 02/09/2024 20:04:48 02/08/20 24 02/08/2024 CBC W/DIF F plt 182 10'3/ uL 150-40 0 Not Available [facility] (Lab) [address], [place], [address], 02/09/2024 20:04:48 02/08/20 24 02/08/2024 CBC W/DIF F MPV 11.9 fL 8.8-12 .1 Not Available [facility] (Lab) [address], [place], [address], 02/09/2024 20:04:48 02/08/20 24 02/08/2024 CBC W/DIF F NRBC's 0.0 % 0.0 Not Available [facility] (Lab) [address], [place], [address], 02/09/2024 20:04:48 02/08/20 24 02/08/2024 CBC W/DIF F absolute NRBCs 0.0 10'3/ uL no refere nce range establ ished Not Available [facility] (Lab) [address], [place], [address], 02/09/2024 20:04:48 02/08/20 24 02/08/2024 CBC W/DIF F neutrophils 78.2 % 34.0-7 3.0 high Not Available [facility] (Lab) [address], [place], [address], 02/09/2024 20:04:48 02/08/20 24 02/08/2024 CBC W/DIF F lymphocytes 16.6 % 15.0-5 0.0 Not Available [facility] (Lab) [address], [place], [address], 02/09/2024 20:04:48 02/08/20 24 02/08/2024 CBC W/DIF F monocytes 3.7 % 1.0-15 .0 Not Available [facility] (Lab) [address], [place], [address], 02/09/2024 20:04:48 02/08/20 24 02/08/2024 CBC W/DIF F eosinophils 0.9 % 0.0-8. 0 Not Available [facility] (Lab) [address], [place], [address], 02/09/2024 20:04:48 02/08/20 24 02/08/2024 CBC W/DIF F basophils 0.2 % 0.0-2. 0 Not Available [facility] (Lab) [address], [place], [address], 02/09/2024 20:04:48 02/08/20 24 02/08/2024 CBC W/DIF F immature granulocytes 0.4 % no define d refere nce range Not Available [facility] (Lab) [address], [place], [address], 02/09/2024 20:04:48 02/08/20 24 02/08/2024 CBC W/DIF F absolute neutrophils 7.2 10'3/ uL 1.5-8. 0 Not Available [facility] (Lab) [address], [place], [address], 02/09/2024 20:04:48 02/08/20 24 02/08/2024 CBC W/DIF F absolute lymphocytes 1.5 10'3/ uL 1.0-4. 0 Not Available [facility] (Lab) [address] [place], [address], 02/09/2024 20:04:48 02/08/20 24 02/08/2024 CBC W/DIF F absolute monocytes 0.3 10'3/ uL 0.2-1. 0 Not Available [facility] (Lab) [address] [place], [address], 02/09/2024 20:04:48 02/08/20 24 02/08/2024 CBC W/DIF F absolute eosinophils 0.1 10'3/ uL 0.0-0. 6 Not Available [facility] (Lab) [address], [place], [address], 02/09/2024 20:04:48 02/08/20 24 02/08/2024 CBC W/DIF F absolute basophils 0.0 10'3/ uL 0.0-0. 3 Not Available [facility] (Lab) [address], [place], [address], 02/09/2024 20:04:48 02/08/20 24 02/08/2024 CBC W/DIF F absolute immature granulocytes 0.0 10'3/ uL 0.00-0 .10 2023 4:55 AM: P indic ates parti al resul ts on a panel have been relea sed. Addit ional resul ts will follo w. 2023 4:55 AM: This resul t has been final verif ied. No addit ional or coto ed resul ts are expec harika. Not Available [facility] (Lab) [address], [place], [address], 02/09/2024 20:04:48 02/08/20 24 02/08/2024 HEPAT ITIS B SURFA CE ANTIG EN hepatitis B surface antigen Non-re active non-re active This assay was perfo rmed using [employer] ratio n reage nts and test kits. Value s obtai tali with other assay metho ds or kits canno t be used inter nnamdi nevarez . Not Available [facility] (Lab) [address], [place], [address], 02/09/2024 20:04:48 02/08/20 24 02/08/2024 HIV 1/2 ANTIG EN/AN TIBOD Y, REFLE X CONFI RMATI ON HIV antigen/anti body Nonrea ctive nonrea ctive HIV-1 antig en and HIV-1 /HIV- 2 antib odies were not detec harika. No labor atory evide nce of HIV infec tion. Not Available [facility] (Lab) [address], [place], [address], 02/09/2024 20:04:49 02/08/20 24 02/08/2024 HEPAT ITIS C ANTIB KINGSLEY SCREE N, REFLE X TO CONFI RMATI ON hepatitis C antibody Non-re active non-re active Antib odies to HCV Not Detec harika, does not exclu de the possi bilit y of expos ure to HCV. Not Available [facility] (Lab) [address], [place], [address], 02/09/2024 20:04:49 02/08/20 24 02/08/2024 RUBEL LA IGG ANTIB KINGSLEY, QUANT rubella antibodies, IgG Reacti ve reacti ve Not Available [facility] (Lab) [address] [place], [address], 02/09/2024 20:04:49 02/08/20 24 02/08/2024 RUBEL LA IGG ANTIB KINGSLEY, QUANT rubella antibodies, IgG quant 26.9 IU/mL >=10 Non-r eacti ve (Non- Immun e) <10 IU/mL React ruslan (Immu ne) > or = 10 IU/mL Not Available [facility] (Lab) [address] [place], [address], 02/09/2024 20:04:49 02/08/20 24 02/08/2024 HEMOG LOBIN A1C hemoglobin A1C 5.3 % 0-5.6 The Ameri can Diabe omid Assoc iatio n recom mends that a prima ry goal of thera py jarrodul d be a HBA1C of < 7% and that physi cians shoul d reeva luate the treat ment regim en in patie nts with HBA1C value s consi stent ly > 8%. <5.7% Mónica l 5.7 - 6.4% Incre ased risk for diabe omid >=6.5 % Diagn ostic of diabe omid <7.0% Goal of thera py >8.0% Actsam priest sted Not Available [facility] (Lab) [address], [place], [address], 02/09/2024 20:04:50 02/08/20 24 02/08/2024 TYPE/ RH/SC REEN ABO/Rh type B POS Not Available [facility] (Lab) [address], [place], [address], 02/09/2024 20:04:50 02/08/20 24 02/08/2024 TYPE/ RH/SC REEN antibody screen NEG Not Available [facility] (Lab) [address], [place], [address], 02/09/2024 20:04:50 02/08/20 24 02/08/2024 TYPE/ RH/SC REEN exp date 2023 23:59 Not Available [facility] (Lab) [address], [place], [address], 02/09/2024 20:04:50 02/08/20 24 02/08/2024 RPR SCREE N, REFLE X TITER /CONF IRMAT ION RPR screen Nonrea ctive nonrea ctive Not Available [facility] (Lab) [address], [place], [address], 02/09/2024 20:04:50 02/08/20 24 02/08/2024 LEAD, BLOOD (ADUL T/PED IATRI C) lead, whole blood <1.0 mcg/d L <3.5 See Note 1 Sandy sis was perfo rmed by Chrisot Simmons ed Plasm a Mass Spect romet ry (ICPM S) Note 1 This test was devel oped and its sandy tical perfo rmanc e ivon cteri stics have been deter mined by [facility] ostrodri s. It has not been clear ed or appro rola by the FDA. This assay has been valid ated pursu ant to the CLIA regul ation s and is used for clini lina purpo ses. Ethni city: Not Hispa anna or Latin o Perfo rming Organ izati on Infor racquel n: Site ID: CB Name: [facility] josseline s-Ritchiemedina Espinal Addre ss: [address] [place] [address] Direc tor: Juan José Espinosa s Not Available [facility] (Lab) [address], [place], [address], 02/09/2024 20:04:51 02/08/20 24 02/08/2024 IMAGE GUIDE D PAP, REFLE X HPV IF ASCUS ONLY image guided Pap, reflex HPV ASCUS only SEE RESULT S BELOW CASE REPOR T: Cytol ogy Gynec ologi lina Repor t Case: [id number] Autho concepcion g Provi susannah: Fanny Campbell NP Colle cted: 02/07 1034 Order ing Locat ion: [place] [facility] Recei rola: 02/08 0822 First Scree n: Lillian Weber, CT Speci men: Nila burden Pap - Image d, Cervi x STATE MENT OF ADEQU ACY: Satis facto ry for evalu ation Trans forma tion zone compo nent prese nt ----- ----- ----- ----- ----- ----- ----- ----- ----- ----- ----- ----- ----- ----- ----- ----- ----- ---- FINAL DIAGN OSIS: Negat ruslan for Intra epith elial Mane donaldson or Alexsander buenrostro (NIL) . Shift in shweta sugge stive of bacte rial vagin osis. Elect justin cisneros by Lillian Weber, CT on 02/14 at 12:09 PM ----- ----- ----- ----- ----- ----- ----- ----- ----- ----- ----- ----- ----- ----- ----- ----- ----- ---- COMME NT: This speci men was revie wed by a Cytot echno logis t and/o r Patho logis t (as indic ated in this repor t) after evalu ation using the Thinp rep Imagi ng Syste m. CLINI LINA INFOR MATIO N: Menst rual Statu s: LMP (if appli cable ): Clini lina Histo ry/Pr eviou s Pap: Type of Neopl rachel (if appli cable ): Signi fican t Clini lina Findi ngs: Other Histo ry: Hormo olga (if appli cable ): PAP EDUCA ZAIRA L NOTE: The Pap Test is a scree jenise test with an inher ent false negat ruslan rate. Liqui d-bas ed sampl ing may decre ase, but will not elimi iveth, false negat ruslan resul ts. A negat ruslan resul t does not precl ude the prese nce and/o r devel opmen t of disea se, since the prese nce of abnor mal cells in the sampl e depen ds on the locat ion of the lesio n and sampl ing techn ique. Tyler nued regul ar scree jenise is the best metho d of cance r preve ntion . If repor harika cytol ogic findi ng do not corre late with physi lina and/o r histo rical findi ngs, furth er inves tigat ion is recom krista d, as clini brian gonzalez nted. Not Available [facility] (Lab) [address], [place], [address], 02/15/2024 13:13:50 02/08/20 24 02/08/2024 pregn abdelrahman test, urine HCG positi ve Not Available [facility] [place] [address], [place], [address], 02/08/2024 10:48:34 02/24/2002/24/2024 drug scree n, urine Amphetamines : negati ve Not Available [address], [place], [address], 02/24/2024 10:44:38 02/24/2002/24/2024 drug scree n, urine Cannabinoids : negati ve Not Available [address], [place], [address], 02/24/2024 10:44:38 02/24/2002/24/2024 drug scree n, urine Cocaine: negati ve Not Available [address], [place], [address], 02/24/2024 10:44:38 02/24/2002/24/2024 drug scree n, urine Opiates: negati ve Not Available [address], [place], [address], 02/24/2024 10:44:38 02/24/2002/24/2024 drug scree n, urine Phenocyclidi ne: negati ve Not Available [address], [place], [address], 02/24/2024 10:44:38 02/24/2002/24/2024 drug scree n, urine Barbiturates : negati ve Not Available [address], [place], [address], 02/24/2024 10:44:38 02/24/2002/24/2024 drug scree n, urine Benzodiazepi olga: negati ve Not Available [address], [place], [address], 02/24/2024 10:44:38 02/24/2002/24/2024 drug scree n, urine Ethanol: negati ve Not Available [address], [place], [address], 02/24/2024 10:44:38 02/24/2002/24/2024 drug scree n, urine Hallucinogen s: negati ve Not Available [address], [place], [address], 02/24/2024 10:44:38 02/24/2002/24/2024 drug scree n, urine Inhalants: negati ve Not Available [address], [place], [address], 02/24/2024 10:44:38 02/24/20 24 02/24/2024 drug scree n, urine Anabolic Steroids: negati ve Not Available [address], [place], [address], 02/24/2024 10:44:38 02/24/2002/24/2024 drug scree n, urine Other: positi ve Not Available [address], [place], [address], 02/24/2024 10:44:38 02/08/2002/08/2024 US, obste tric, 1st trime ster No observ ation record ed. [address], [place], [address], 02/08/2024 10:34:18 02/08/2002/08/2024 US, obste tric, 1st trime ster No observ ation record ed. [email or web address] [address] [facility], [place], [address], 02/08/2024 22:35:01 03/18/20 24 03/18/2024 US, obste tric, follo w-up No observ ation record ed. [email or web address] [facility] [address], [place], [address], 03/18/2024 14:16:25 04/06/20 24 04/06/2024 US, obste tric, follo w-up No observ ation record ed. Not Available 2024 14:46:25 07/05/19 25 07/04/2024 US, obste tric, 2nd or 3rd trime ster No observ ation record ed. [email or web address] [address], [place], [address], 07/04/2024 18:43:20 07/05/19 25 07/04/2024 US, obste tric, follo w-up No observ ation record ed. [email or web address] [address], [place], [address], 07/19/2024 08:48:32 07/19/19 25 07/18/2024 US, obste tric, follo w-up No observ ation record ed. [email or web address] [address], [place], [address], 07/18/2024 17:51:40 07/19/19 25 07/18/2024 US, obste tric, bioph ysica l profi le + non-s tress test No observ ation record ed. [email or web address] [address], [place], [address], 07/18/2024 17:51:52 07/19/19 25 07/18/2024 US, doppl er, umbil ical arter y veloc imetr y No observ ation record ed. [email or web address] [address], [place], [address], 07/18/2024 17:52:05 07/19/19 25 07/18/2024 US, obste tric, follo w-up No observ ation record ed. [email or web address] [address], [place], [address], 07/19/2024 16:53:10 Result Notes None recorded. Problems Name Problem SNOMED Code Status Onset Date Resolution Date Notes Provider Name and Address Organization Details Recorded Time demise from miscarri age 0557180 Active 2017 labor Vida bryant, [facility] 0 10:01:09 Pregnanc y 78124127 Completed 201905/10/2020 Vida bryant, [facility] 4 10:46:28 Pregnanc y 06960877 Active 2023 Vida bryant, [facility] 4 10:46:28 Seizure disorder 790499850 Active juanitortlakeisha berger has m appt Fanny Gilmore CNM [address], [place], [address], [facility] 4 10:58:49 Herpes simplex 12189230 Active valtrex daily increase to bid at 36 weeks tx Valacycl ovir x 7 days ER [place] Dimas's Palsy Danielle Arturo bryant, [facility] 5 14:55:23 Past pregnanc y history of stillbir th 059766522 Active 19 weeks Fanny Gilmore CNM [address], [place], [address], [place] [facility] 4 10:58:01 Past pregnanc y history of growth restrict ion 694052310 Active Fanny Gilmore CNM [address], [place], [address], [facility] 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 5 16:32:35 Placenta circumva llata 4655613 Active Danielle bryant, [facility] 5 16:32:35 growth restrict ion 38774794 Active Referral faxed to [facility] 07/19-[facility] eduled [facility] e - 07/25 1:45PM Level II us/doppl er/bpp/n st schedule weekly BPP/DOPP LER/NST/ OB Danielle bryant, [facility] 5 16:56:04 growth restrict ion 45080534 Active Referral faxed to [facility] 07/19-[facility] eduled [facility] e - 07/25 1:45PM Level II us/doppl er/bpp/n st schedule weekly BPP/DOPP LER/NST/ OB Danielle bryant, [facility] 5 16:56:04 growth restrict ion 88387486 Completed 2019 [facility] - Weekly BPP/dopp lers and NSTs on Tuesdays until 11/01/19 Jeff Jean Baptiste [facility], [facility] 1 17:13:41 Herpes simplex 41225379 Active valtrex daily increase to bid at 36 weeks tx Valacycl ovir x 7 days ER [place] Dimas's Palsy Danielle bryant, [facility] 5 14:55:23 Herpes simplex 87561944 Completed 2019 Needs treatmen t at 34 weeks per [facility] Jeff Jean Baptiste [facility] 1 17:13:41 Seizure disorder 774866565 Active restarte blayne berger has mfm appt Fanny Gilmore, [facility] [address], [place], [address], [facility] 4 10:58:49 Chlamydi al infectio n [id number] Completed 201909/01/2019 JOSE 32 WEEKS Jeff Jean Baptiste null, [facility] 0 16:21:05 Problem Notes None recorded. Procedures Surgical History Date Name Laterality Status Provider Name and Address Organization Details Recorded Time 02/08/2024 Date of Last Pap Smear completed Vida Marino [facility] 02/08/2024 10:44:17 Imaging Results Imaging Date Name Status LastModified by Organiz ation Details LastModified Time 02/08/2024 US, obstetric, 1st trimester completed [email or web address] [address], [place], [address], 02/08/2024 10:34:18 02/08/2024 US, obstetric, 1st trimester completed [email or web address] [address], [place], [address], 02/08/2024 22:35:01 03/18/2024 US, obstetric, follow-up [email or web address] [address] [place] [place], [address], 03/18/2024 14:16:25 04/06/2024 US, obstetric, follow-up completed Information not available 06/29/2024 14:46:25 07/04/2024 US, obstetric, 2nd or 3rd trimester completed [email or web address] [address], [place], [address], 07/04/2024 18:43:20 07/04/2024 US, obstetric, follow-up completed [email or web address] [address], [place], [address], 07/19/2024 08:48:32 07/18/2024 US, obstetric, follow-up completed [email or web address] [address], [place], [address], 07/18/2024 17:51:40 07/18/2024 US, obstetric, biophysical profile + non-stress test completed [email or web address], [place], [address], 07/18/2024 17:51:52 07/18/2024 US, doppler, umbilical artery velocimetry completed [email or web address], [place], [address], 07/18/2024 17:52:05 07/18/2024 US, obstetric, follow-up completed [email or web address], [facility], [place], [address], 07/19/2024 16:53:10 Procedure Notes None recorded. Medical Equipment None Reported. Allergies Allergen ID Allergen Name Allergen Category Reaction Reaction Severity Criticality Documentation Date Start Date Code Code System Note Provider Name and Address Organization Details Recorded Time 331 morphine medicatio n Not available Not available Not available 08/26/2019 7052 RxNorm Vida Marino [facility] 0 18:15:58 Medications Name Sig Start Date Stop Date Status Note LastModified by Organization Details LastModified Time azithromyci n 250 mg tablet TAKE 2 TABLETS (500 MG) BY ORAL ROUTE ONCE DAILY FOR 1 DAY THEN 1 TABLET (250 MG) BY ORAL ROUTE ONCE DAILY FOR 4 DAYS active Not Available Not Available No t Available valacyclovi r 1 gram tablet active Not Available Not Available Not Available fluconazole 200 mg tablet 02/07 completed Not Available Not Available Not Available prednisone 20 mg tablet active Not Available Not Available Not Available metronidazo le 500 mg tablet Take 1 tablet twice a day by oral route for 7 days. 05/13 completed Not Available Not Available Not Available Depo-Social Service Director a 150 mg/mL intramuscul ar suspension Inject 1 mL every 3 months by intramusc ular route. 02/07 completed Not Available Not Available Not Available cephalexin 500 mg capsule 05/13 completed Not Available Not Available Not Available Valtrex 500 mg tablet Take 1 tablet twice a day by oral route. 2019 active Not Available Not Available Not Avai lable ondansetron 4 mg disintegrat ing tablet Place 1 tablet every 6-8 hours by transling ual route. active Not Available Not Available No t Available nitrofurant oin monohydrate /macrocryst als 100 mg capsule TAKE 1 CAPSULE BY MOUTH TWICE DAILY FOR 7 DAYS 02/07 completed Not Available Not Available Not Available aspirin 02/07 completed Not Available Not Available Not Available iron 02/07 completed Not Available Not Available Not Available active Not Available Not Avai lable Not Available Keppra 1,000 mg tablet Take 1 tablet every day by oral route. 2023 active Not Available Not Available Not Avai lable Vitals Date Recorded Body height Body mass index (BMI) Body weight Systolic blood pressure Diastolic blood pressure Provider Name and Address Organization Details Last Updated DateTime 02/24/2024 158.75 cm 22.7 kg/m2 62895.64 g 96 mm[Hg] 61 mm[Hg] Vida Marino [facility] 4 10:43:37 Date Recorded Body weight Body mass index (BMI) Body height Systolic blood pressure Diastolic blood pressure Provider Name and Address Organization Details Last Updated DateTime 05/13/2024 08710.33 943 g 25 kg/m2 158.75 cm 93 mm[Hg] 61 mm[Hg] Vida Marino [facility] 5 13:52:45 Date Recorded Body weight Systolic blood pressure Diastolic blood pressure Provider Name and Address Organization Details Last Updated DateTime 07/18/2024 51768.0783 9 g 110 mm[Hg] 67 mm[Hg] Elizabeth Dyer [facility] 07/18/2024 17:45:23 Social History Question Answer Notes LastModified by Organizat ion Details LastModified Time Tobacco Smoking Status Former Smoker Vida Marino [facility] 02/08/2024 10:46:27 What Is Your Level Of Alcohol Consumption? None [email or web address] Information not available 08/26/2019 If You Are , What Was Your Level Of Alcohol Consumption Prior To ? Occasional [email or web address] Information not available 02/08/2024 Are You Blind Or Do You Have Difficulty Seeing? No [email or web address] Information not available 02/08/2024 What Is Your Level Of Caffeine Consumption? Moderate [email or web address] Information not available 02/08/2024 In The 14 Days Before Symptom Onset, Have You Had Close Contact With A Laboratory-confir med COVID-19 While That Case Was Ill? No [email or web address] Information not available 02/08/2024 In The 14 Days Before Symptom Onset, Have You Had Close Contact With A Person Who Is Under Investigation For COVID-19 While That Person Was Ill? No [email or web address] Information not available 02/08/2024 Have You Been To An Area Known To Be High Risk For COVID-19? No [email or web address] Information not available 02/08/2024 Are You Deaf Or Do You Have Serious Difficulty Hearing? No [email or web address] Information not available 02/08/2024 What Type Of Diet Are You Following? REGULAR [email or web address] Information not available 02/08/2024 Do You Or Have You Ever Used E-cigarettes Or Vape? Former User Of Electronic Cigarettes [email or web address] Information not available 02/08/2024 What Was The Date Of Your Most Recent Tobacco Screening? 05/13/2024 [email or web address] Information not available 05/13/2024 Do You Use Your Seat Belt Or Car Seat Routinely? Yes [email or web address] Information not available 02/08/2024 Do You Have Smoke And Carbon Monoxide Detectors In Your Home? Yes [email or web address] Information not available 02/08/2024 Do You Or Have You Ever Used Smokeless Tobacco? Never Used Smokeless Tobacco [email or web address] Information not available 11/22/2019 How Much Tobacco Do You Smoke? No Information not available 11/22/2019 Smoking Pre- No [email or web address] Information not available 08/26/2019 Do You Feel Stressed (tense, Restless, Nervous, Or Anxious, Or Unable To Sleep At Night)? [id number] [email or web address] Information not available 02/08/2024 Do You Use Any Illicit Or Recreational Drugs? No [email or web address] Information not available 02/08/2024 Do You Use Sunscreen Routinely? Yes [email or web address] Information not available 02/08/2024 Do You Or Have You Ever Used Any Other Forms Of Tobacco Or Nicotine? Yes [email or web address] Information not available 02/08/2024 Sex: Unknown Functional Status Question Answer Note LastModified by Organizat ion Details LastModified Time Do you have difficulty walking or climbing stairs? No [email or web address] Information not available 02/08/2024 Are you able to walk? YESWOREST [email or web address] Information not available 02/08/2024 Are you able to care for yourself? Yes [email or web address] Information not available 02/08/2024 Do you have difficulty dressing or bathing? No Information not available 02/08/2024 What is your exercise level? Occasional [email or web address] Information not available 08/26/2019 Mental Status None recorded. Family History Relationship Description Onset Age of this Age Resolved Age Notes LastModified by Organization Details LastModified Time Mother Malignant tumor of breast [email or web address] Not available 08/25 18:21:21 Mother Hypertensive disorder [email or web address] Not available 08/25 18:21:32 Notes:Mother: Cancer, breast , Hypertension Medical History Condition Response Allergies (Food, seasonal, environmental ) Y Other Y Drug/Latex Allergies/Reactions Y Breast Cancer N Blood Transfusion N Lung Disease N Dermatologic Disorders Y Defects or Inherited Disease N Breast Problem Y Gestational Diabetes N Hematologic disorders N Anesthesia Complications N History of STI Y Deep Vein Thrombosis N Polycystic ovary syndrome N Anxiety Disorder Y Autoimmune disease N Arthritis N Polyps N Infertility N History of abnormal pap N Acid Reflux (GERD) N Cancer N Varicosities N Stroke N Neurologic/Epilepsy Y Endometriosis N High Cholesterol N Headaches N Fibromyalgia N Kidney Disease N Heart Problems N Thyroid Problems N Kidney or Bladder Problems N GI Problems N Eating Disorder N Anemia N Art (IVF or FET) N Psychiatric Illness N Ovarian Cancer N Diabetes N Pulmonary (TB, Asthma) N Hepatitis/Liver Disease N No Past Medical History Y Eczema Y Urinary Tract Infection N Abuse/Domestic Violence N Asthma Y Trauma/Violence N Depression/ depression Y Heart Disease N Pre-Eclampsia N Hypertension N Osteoporosis N Thrombophilias N Gynecological History Statement/Question Response Date of Last Colonoscopy Date of Last Mammogram Date of LMP STIs/STDs Y Date of DEXA bone scan Date of Last Pap Smear 02/08/2024 Current Control Method LMP Definite Obstetrics History GPAL:G 5 P 1 1 2 1 Type Value Full Term 1 Spontaneous 2 Premature 1 Living 1 Total 5 Past Encounters Encounter ID Performer Location Encounter Start Date Encounter Closed Date Diagnosis/Indication Diagnosis SNOMED-CT Code Diagnosis ICD10 Code Diagnosis Note [id number],[place] [address] 08/11/2019 11:38:34 08/11/2019 16:27:14 Normal 28793208 Z34.93 [id number] Fanny Gilmore [facility] [address],[place] [address] 08/26/2019 16:39:32 08/26/2019 17:16:10 Routine care 568976052 Z34.[id number],[place] [address] 08/30/2019 14:22:12 08/31/2019 09:13:38 Normal 45889679 Z34.93 [id number] Kevin Suarez MD [address] [place] [address] 09/05/2019 16:49:00 09/06/2019 09:48:15 Routine care 489759921 Z34.83 [id number] Kevin Suarez MD [address],[place] [address] 09/12/2019 13:59:45 09/12/2019 14:41:35 Routine care 285186557 Z34.83 [id number] Fanny Gilmore [facility] [address] [place] [address] 10/04/2019 11:44:05 10/26/2019 09:36:53 Routine care 887728606 Z34.03 [id number] Fanny Gilmore [facility] [address] [place] [address] 10/11/2019 13:02:46 10/15/2019 19:45:28 Routine care 154537001 Z34.[id number],[place] [address] 10/18/2019 14:58:56 10/18/2019 15:40:02 Normal 66216888 Z34.93 [id number] Fanny Gilmore [facility] [address],[place] [address] 11/22/2019 12:58:04 11/22/2019 14:01:33 Contraception care management 445639372 Z30.9 [id number] [facility] [address],[place] [address] 01/18/2024 16:47:45 01/18/2024 17:40:47 with uncertain dates 537389910 Z34.91 N91.2 Z32.01 Dating u/s [id number] [facility] [address],[place] [address] 02/08/2024 09:50:47 02/08/2024 10:43:23 test positive 402599981 Z32.01 [id number] Fanny Gilmore [facility] [address],[place] [address] 02/08/2024 09:51:06 02/08/2024 11:01:06 Amenorrhea 44193462 N91.2 plan new ob and first looklabs todaypap collectedr estart seizure meds dailyasthm a inhaler prnclonaze elly prn anxietywil l need consult mfSV only on blood- mfm did start suppressio n last ar 34 weeks Gynecologi c examination 69950287 Z11.3 screening 2437 88423 Z36.0 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 98839396 Z31.430 Exposure to lead 9987779 921 5792774 Z77.011 Seizure disorder 5812715 02 G40.909 restart seizure medication , seizure precaution [facility]FM to be scheduled [id number] [facility] [address],[place] [address] 02/24/2024 09:59:03 02/24/2024 11:05:10 Gestation period, 12 weeks 11273804 Z3A.12 mfm consult Routine an tenatal care 996925545 Z34.03 Bacterial vaginosis 4197 67554 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.0 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 [id number] Fanny Gilmore [facility] [address],[place] [address] 05/13/2024 13:28:29 05/13/2024 14:08:51 Gestation period, 24 weeks 385665143 Z3A.24 continue vitamin Upper resp iratory infection 65994097 J06.9 [id number] [facility] [address],[place] [address] 07/04/2024 17:39:34 07/04/2024 18:44:12 screening for malformation 627493578 Z36.3 Z3A.31 [id number] [facility] [address],[place] [address] 07/18/2024 17:00:09 07/18/2024 17:48:39 Small for gestational age fetus 841510801 O36.5930 O43.113 O09.33 Z3A.33 [id number] Kevin Suarez MD [address],[place] [address] 07/18/2024 17:18:09 07/19/2024 08:17:22 Routine care 004006322 Z34.83 Health Concerns Section Related Observation LastModified by Organization Detai ls LastModified Time None Recorded Concern Status LastModified by Organization Details LastModified Time None Recorded Advance Directives Directive None Recorded Payers Encounter Date Sequence Insurance Name Policy Number Policy Delong Covered Member ID Delong Member ID Guarantor Name 02/24/2024 1 [facility] (MEDICAID HMO) [id number] Sayra Hsu [id number] Sayra Hsu 05/13/2024 1 [facility] (MEDICAID HMO) [id number] Sayra Hsu [id number] Sayra Hsu 07/04/2024 1 [facility] (MEDICAID HMO) [id number] Sayra Hsu [id number] Sayra Hsu 07/18/2024 1 [facility] (MEDICAID HMO) [id number] Sayra Hsu [id number] Sayra Hsu 07/18/2024 1 [facility] (MEDICAID HMO) [id number] Sayra Hsu [id number] Sayra Hsu OBGyn Episode Ob Episode Information Episode Created Date Number of Fetuses Patient Bloodtype Patient rh Status Prepregnancy Weight lbs Domestic Partner Domestic Partner Phone Father Name Environmental Conflict Manager Status 08/11/19 20 1 B Positive 122 CLOSED Fetus Data First Name Last Name Admitted to NICU Weight (g) Sex Living Outcome Pediatric Complications Fetus ID Race Codes Race Delivery Type 2749.90 15 M true Full Term growth restriction 186 Vaginal Delivery Problems Problem Notes Problem Name Start Date End Date Resolution Snomed Code Not e growth restriction 08/22/2019 [id number] [facility] - Weekly BPP/dopplers and NSTs on Tuesdays until 11/01/19 Herpes simplex 08/22/2019 04265174 Need s treatment at 34 weeks per MFM Satnam Calculation Initial Satnam Date Initial Exam Date Initial Exam Provider Initial Ultrasound Date Last Menstrual Period Date Ultra Sound Weeks Gestation 11/03/2019 08/11/2019 04/28/2019 01/25/2019 13 Eighteen To Twenty Week Satnam Update Ultra Sound Date Fundal Height At Umbil Quickening Date Ultra Sound Latest Weeks Gestation Final Satnam Confirmed By Final Satnam Confirmed Date Final Satnam Date Ultra Sound Latest Days Gestation 0 [email or web address] 09/12/2019 11/01/19 20 0 Pre- Flowsheet Flowsheet Date 08/11/2019 Joya Score Blood Edema Fundus Height Fundus Units Glucose Ketones Leukocytes Nitrite Labor Signs Protein Cervic Dilation Cervic Effacement Cervic Station Type Weight in lbs Pre/Post Dialysis Refused BP Diastolic BP Location Tested BP Systolic BP Type Fetus Heart Rate Present Fetus Movement Comments Flowsheet Date 08/11/2019 Joya Score Blood Edema Fundus Height Fundus Units Glucose Ketones Leukocytes Nitrite Labor Signs Protein Cervic Dilation Cervic Effacement Cervic Station 27 cm none trace Type Weight in lbs Pre/Post Dialysis Refused Weight 140.845126602123 BP Diastolic BP Location Tested BP Systolic BP Type 74 R arm 113 sitting Fetus Heart Rate Present A 135 Fetus Movement A Yes Comments GCT today. She is supposed t o have weekly BPP/dopplers per [facility] and is scheduled w/ [facility] [place]. Expecting baby boy wants circumcision and plans to breastfeed. Flowsheet Date 08/26/2019 Joya Score Blood Edema Fundus Height Fundus Units Glucose Ketones Leukocytes Nitrite Labor Signs Protein Cervic Dilation Cervic Effacement Cervic Station neg none trace Type Weight in lbs Pre/Post Dialysis Refused Weight 144.157552236118 BP Diastolic BP Location Tested BP Systolic BP Type 71 107 Fetus Heart Rate Present A 130 Fetus Movement A Yes Comments pt states that having back p ain and pressure, contractions, and discharge, pt needs Keppra rx from Dr. Suarez, no longer has pcp, rn notified Flowsheet Date 08/30/2019 Joya Score Blood Edema Fundus Height Fundus Units Glucose Ketones Leukocytes Nitrite Labor Signs Protein Cervic Dilation Cervic Effacement Cervic Station none 29 trace 1cm 20% -3 Type Weight in lbs Pre/Post Dialysis Refused Weight 146.180003314045 BP Diastolic BP Location Tested BP Systolic BP Type 64 105 Fetus Heart Rate Present A 135 Fetus Movement A Yes Comments Glucose negative She has occ asional ctx usually 2-3 per hour at most. No bleeding. c/o discharge, took meds for BV about 2 weeks ago. Check Affirm today. Declines STD testing. Cervix tight 05/23/-3/soft/posterior. I advised rest/fluids and reviewed PTL precautions in detail. She sees MFM weekly Flowsheet Date 05/20/2019 Joya Score Blood Edema Fundus Height Fundus Units Glucose Ketones Leukocytes Nitrite Labor Signs Protein Cervic Dilation Cervic Effacement Cervic Station 1+ trace Type Weight in lbs Pre/Post Dialysis Refused Weight 122.699233164299 BP Diastolic BP Location Tested BP Systolic BP Type Fetus Heart Rate Present A 142 Fetus Movement A No Comments This patient is a 19-year-ol d 2 para 0 100 at 16 weeks gestation with a history of an 18 week loss. The etiology of this losses unknown. Patient has follow-up with M for evaluation of cervix and anatomy. She will follow up here in 4 weeks. Patient also has seizure disorder. She is going to discuss that with [facility] Flowsheet Date 06/17/2019 Joya Score Blood Edema Fundus Height Fundus Units Glucose Ketones Leukocytes Nitrite Labor Signs Protein Cervic Dilation Cervic Effacement Cervic Station Type Weight in lbs Pre/Post Dialysis Refused Weight 122.667114679434 BP Diastolic BP Location Tested BP Systolic BP Type Fetus Heart Rate Present Fetus Movement A No Comments Flowsheet Date 07/14/2019 Joay Score Blood Edema Fundus Height Fundus Units Glucose Ketones Leukocytes Nitrite Labor Signs Protein Cervic Dilation Cervic Effacement Cervic Station none 24 1+ Type Weight in lbs Pre/Post Dialysis Refused Weight 140.930046577409 BP Diastolic BP Location Tested BP Systolic BP Type 70 101 sitting Fetus Heart Rate Present A 142 Fetus Movement A Yes Comments Pt is having a boy Orlundis . Pt was confused on her due date and thought she should be 25 weeks today but also thought EDC was 7-2. Explained that we are going by 6-30 EDC which makes her 24w2d and if we went by the 7-2 edc she would only be 24 weeks. Pt verbalized understanding. Flowsheet Date 09/05/2019 Joya Score Blood Edema Fundus Height Fundus Units Glucose Ketones Leukocytes Nitrite Labor Signs Protein Cervic Dilation Cervic Effacement Cervic Station 30 trace Type Weight in lbs Pre/Post Dialysis Refused Weight 147.721177909295 BP Diastolic BP Location Tested BP Systolic BP Type 69 107 Fetus Heart Rate Present A 145 Fetus Movement A Yes Comments severe growth restrict ion, patient is having BPP's, NSTs, Doppler studies each week. Flowsheet Date 09/12/2019 Joya Score Blood Edema Fundus Height Fundus Units Glucose Ketones Leukocytes Nitrite Labor Signs Protein Cervic Dilation Cervic Effacement Cervic Station 31 trace Type Weight in lbs Pre/Post Dialysis Refused Weight 147.484232604896 BP Diastolic BP Location Tested BP Systolic BP Type 69 107 Fetus Heart Rate Present A 145 Fetus Movement A Yes Comments Flowsheet Date 10/04/2019 Joya Score Blood Edema Fundus Height Fundus Units Glucose Ketones Leukocytes Nitrite Labor Signs Protein Cervic Dilation Cervic Effacement Cervic Station 28 2cm 80% Type Weight in lbs Pre/Post Dialysis Refused Weight 149.625162590749 BP Diastolic BP Location Tested BP Systolic BP Type 68 R arm 107 sitting Fetus Heart Rate Present A 145 Present Fetus Movement A Yes Comments gbs done Flowsheet Date 10/11/2019 Joya Score Blood Edema Fundus Height Fundus Units Glucose Ketones Leukocytes Nitrite Labor Signs Protein Cervic Dilation Cervic Effacement Cervic Station neg none 34 trace 3cm 80% -2 Type Weight in lbs Pre/Post Dialysis Refused Weight 151.241521906401 BP Diastolic BP Location Tested BP Systolic BP Type 67 100 Fetus Heart Rate Present A 144 Fetus Movement A Yes Comments patient states that having p ain and contractions, labor precautions Flowsheet Date 10/18/2019 Joya Score Blood Edema Fundus Height Fundus Units Glucose Ketones Leukocytes Nitrite Labor Signs Protein Cervic Dilation Cervic Effacement Cervic Station none 37 cm 4cm 60% -2 Type Weight in lbs Pre/Post Dialysis Refused Weight 148.666132437094 BP Diastolic BP Location Tested BP Systolic BP Type 72 R arm 106 sitting Fetus Heart Rate Present A 130 Fetus Movement A Yes Comments PT. WILL LEAVE URINE SAMPLE AFTER APPT. BC, RMA Cervix 460/-2. Wants 39 week induction and Fanny Deirdre to deliver so schedule next week Flowsheet Date 11/22/2019 Joya Score Blood Edema Fundus Height Fundus Units Glucose Ketones Leukocytes Nitrite Labor Signs Protein Cervic Dilation Cervic Effacement Cervic Station Type Weight in lbs Pre/Post Dialysis Refused Weight 127.651056612325 BP Diastolic BP Location Tested BP Systolic BP Type 68 116 Fetus Heart Rate Present Fetus Movement Comments Menstrual History Last Menstrual Date Menses Monthly On Bcp Conception Prior Menses Frequency Hcg Plus Date Menarche Onset Age 0901/25/2019 Genetic Screening And Infection History Question Response Note Mental Retardation/Autism false Patient's Age Will Be 35 Yea rs Or Older At Estimated Date of Delivery false Thalassemia (East Timorese, Khmer, Mediterranean, Or Background): MCV < 80 false Neural Tube Defect (Meningom yelocele, Spina Bifida, Or Anencephaly) false Congenital Heart Defect false Down Syndrome false Markus-Sachs (eg, Congregation, Cajun, Malay-[place]) f alse Piedad Disease false Sickle Cell Disease Or Trait () false Hemophilia Or Other Blood Disorders false Muscular Dystrophy false Cystic Fibrosis false Cyrus's Chorea false Intellectual Disability/Autism false If Yes, Was Person Tested For Fragile X? false Other Inherited Genetic Or Chromosomal Disorder false Maternal Metabolic Disorder (eg, Type 1 Diabetes , PKU) false Patient Or Baby's Father Had A Child With Defects Not Listed Above false Recurrent Loss, Or A Stillbirth false Medications (including Suppl ements, Vitamins, Herbs, OTC Drugs), Illicit/Recreational Drugs, Alcohol false If Yes, Agent(s) And Strength/Dosage false Any Other Genetic History false Live With Someone With TB Or Exposed To TB false Patient Or Partner Has History Of Genital Herpes true HSV +IgG & IgM Rash Or Viral Illness Since Last Menstrual Perio d false History Of STD, Gonorrhea, Chlamydia, HPV, Syphi lis false Other Infection History false History of HIV false History of Hepatitis false Prior GBS-infected child false Hemoglobinopathy Or Carrier false Other Structural Defect false Recent Travel History Outside of Country false Delivery Information Delivery Date Delivery Type Labor Anesthesia Weeks Gestation Incision Type Labor Labor Length Hrs Delivered By Post Complications Tubal Sterilization Discharge Date Comments 0 [facility] idural 38.6 false Discharge Information Feeding Method Contraceptive Method Maternal HG B and HCT Levels Ob Episode Information Episode Created Date Number of Fetuses Patient Bloodtype Patient rh Status Prepregnancy Weight lbs Domestic Partner Domestic Partner Phone Father Name Environmental Conflict Manager Status 08/26/19 20 1 CLOSED Fetus Data First Name Last Name Admitted to NICU Weight (g) Sex Living Outcome Pediatric Complications Fetus ID Race Codes Race Delivery Type 340.194 F Demise 809 Vaginal Delivery Satnam Calculation Initial Satnam Date Initial Exam Date Initial Exam Provider Initial Ultrasound Date Last Menstrual Period Date Ultra Sound Weeks Gestation 0 Eighteen To Twenty Week Satnam Update Ultra Sound Date Fundal Height At Umbil Quickening Date Ultra Sound Latest Weeks Gestation Final Satnam Confirmed By Final Satnam Confirmed Date Final Satnam Date Ultra Sound Latest Days Gestation 0 0 Menstrual History Last Menstrual Date Menses Monthly On Bcp Conception Prior Menses Frequency Hcg Plus Date Menarche Onset Age Delivery Information Delivery Date Delivery Type Labor Anesthesia Weeks Gestation Incision Type Labor Labor Length Hrs Delivered By Post Complications Tubal Sterilization Discharge Date Comments 8 19 Discharge Information Feeding Method Contraceptive Method Maternal HG B and HCT Levels Ob Episode Information Episode Created Date Number of Fetuses Patient Bloodtype Patient rh Status Prepregnancy Weight lbs Domestic Partner Domestic Partner Phone Father Name Environmental Conflict Manager Status 11/08/19 20 1 DELETED Satnam Calculation Initial Satnam Date Initial Exam Date Initial Exam Provider Initial Ultrasound Date Last Menstrual Period Date Ultra Sound Weeks Gestation 0 Eighteen To Twenty Week Satnam Update Ultra Sound Date Fundal Height At Umbil Quickening Date Ultra Sound Latest Weeks Gestation Final Satnam Confirmed By Final Satnam Confirmed Date Final Satnam Date Ultra Sound Latest Days Gestation 0 0 Menstrual History Last Menstrual Date Menses Monthly On Bcp Conception Prior Menses Frequency Hcg Plus Date Menarche Onset Age Delivery Information Delivery Date Delivery Type Labor Anesthesia Weeks Gestation Incision Type Labor Labor Length Hrs Delivered By Post Complications Tubal Sterilization Discharge Date Comments 0 38 Discharge Information Feeding Method Contraceptive Method Maternal HG B and HCT Levels Ob Episode Information Episode Created Date Number of Fetuses Patient Bloodtype Patient rh Status Prepregnancy Weight lbs Domestic Partner Domestic Partner Phone Father Name Environmental Conflict Manager Status 02/08/20 24 1 CLOSED Fetus Data First Name Last Name Admitted to NICU Weight (g) Sex Living Outcome Pediatric Complications Fetus ID Race Codes Race Delivery Type , Spontane ous [id number] Satnam Calculation Initial Satnam Date Initial Exam Date Initial Exam Provider Initial Ultrasound Date Last Menstrual Period Date Ultra Sound Weeks Gestation 0 Eighteen To Twenty Week Satnam Update Ultra Sound Date Fundal Height At Umbil Quickening Date Ultra Sound Latest Weeks Gestation Final Satnam Confirmed By Final Satnam Confirmed Date Final Satnam Date Ultra Sound Latest Days Gestation 0 0 Menstrual History Last Menstrual Date Menses Monthly On Bcp Conception Prior Menses Frequency Hcg Plus Date Menarche Onset Age Delivery Information Delivery Date Delivery Type Labor Anesthesia Weeks Gestation Incision Type Labor Labor Length Hrs Delivered By Post Complications Tubal Sterilization Discharge Date Comments 8 Discharge Information Feeding Method Contraceptive Method Maternal HG B and HCT Levels Ob Episode Information Episode Created Date Number of Fetuses Patient Bloodtype Patient rh Status Prepregnancy Weight lbs Domestic Partner Domestic Partner Phone Father Name Environmental Conflict Manager Status 02/24/20 24 1 B Positive 124 OPEN Fetus Data First Name Last Name Admitted to NICU Weight (g) Sex Living Outcome Pediatric Complications Fetus ID Race Codes Race Delivery Type [id number] Problems Problem Notes 04/06/24 1pm u/s and ovNo 1HR GTT completed - Start checking bs QID Problem Name Start Date End Date Resolution Snomed Code Not e Past history of growth restriction 755439999 Past history of stillbirth [id number] 19 weeks Seizure disorder [id number] res tarharika berger has [facility] appt Herpes simplex [id number] valtr ex daily increase to bid at 36 weekstx Valacyclovir x 7 days 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 [id number] Referral faxed to [facility] 07/19-Scheduled [facility] - 07/25 1:45PM Level II us/doppler/bpp/nstsc hedule weekly BPP/DOPPLER/NST/OB Satnam Calculation Initial Satnam Date Initial Exam Date Initial Exam Provider Initial Ultrasound Date Last Menstrual Period Date Ultra Sound Weeks Gestation 08/31/2024 02/08/2024 Fanny Gilmore 01/18/2024 7 Eighteen To Twenty Week Satnam Update Ultra Sound Date Fundal Height At Umbil Quickening Date Ultra Sound Latest Weeks Gestation Final Satnam Confirmed By Final Satnam Confirmed Date Final Satnam Date Ultra Sound Latest Days Gestation 0 09/01/19 25 0 Pre-nelly Flowsheet Flowsheet Date 02/24/2024 Joya Score Blood Edema Fundus Height Fundus Units Glucose Ketones Leukocytes Nitrite Labor Signs Protein Cervic Dilation Cervic Effacement Cervic Station neg none none trace Type Weight in lbs Pre/Post Dialysis Refused Weight 126.828498586343 BP Diastolic BP Location Tested BP Systolic BP Type 61 96 Fetus Heart Rate Present Fetus Movement A No Comments Patient is having some nause a and vomiting. reviewed history, education, vaccines, has not a seizure in a long time but was encouraged at last visit to restart. 2 previous vaginal deliverieswill start bASA for demise history Flowsheet Date 05/13/2024 Joya Score Blood Edema Fundus Height Fundus Units Glucose Ketones Leukocytes Nitrite Labor Signs Protein Cervic Dilation Cervic Effacement Cervic Station trace Type Weight in lbs Pre/Post Dialysis Refused 139.081145231683 BP Diastolic BP Location Tested BP Systolic BP Type 61 93 Fetus Heart Rate Present Fetus Movement A Yes Comments Patient states that is haivn g discharge, nausea and vomiting. unable to get to appt due to her boss, note given encouraged [facility] visit. will order us and gct here. zpack for congestion and cough. precautions and education. +FM, no recent siezures

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
--- OUTSIDE RECORDS SUMMARY | 2024-07-25 17:25 | XMS_ITS | Encounter Summary ---
Author Organization [facility] Address [address] [place] [address] Phone Care Team Providers Care Hotel Attendant Name Role Phone Unknown, Notinfile Primary Care Provider Unavail able No, Physician Primary Care Provider [phone] Abelino Stover MD Primary Care Provider No, Physician Primary Care Provider [phone] Mckenna Rios DO Primary Care Provider Gabriel Cnao MD Unavailable [phone] Abelino Stover MD Primary Care Provider Mckenna Rios DO Unavailable [phone] Encounter Details Date Type Department Care Team (Late st Contact Info) Description 04/20/2019 Orders Only [facility] [address] [place] [address] Scanning, Provider Social History Tobacco Use Types Packs/Day Years Used Date Smoking Tobacco: Never Smokeless Tobacco: Never Alcohol Use Standard Drinks/Week Comments Not Currently 0 (1 standard drink = 0.6 oz pur e alcohol) Comments No Sex and Gender Information Value Date Recorded Sex Assigned at Not on file Legal Sex Female 11:17 PM COREMAKER PIPE Gender Identity Not on file Sexual Orientation Not on file documented as of this encounter Plan of Treatment Upcoming Encounters Date Type Department Care Team (Late Contact Info) Description 08/30/2024 Hospital Encounter [facility] [address] [place] [address] Gabriel Cano MD [address] [place] [id number] documented as of this encounter Procedures Procedure Name Priority Date/Time Associated Diagnosis Comments SCAN - LABS 04/20/2019 documented in this encounter Results * SCAN - LABS (04/20/2019) us Provider Scanning Final Result documented in this encounter Visit Diagnoses Not on filedocumented in this encounter Additional Health Concerns Infection Onset Date Last Indicated Resolved Time COVID19 Comment:Added from the Screening question BPA, identifying patients that tested positive for COVID in the last 14 days and the result is from a facility outside [facility] . 05/09/2021 05/09/2021 05/22/2021 3:05 AM COREMAKER PIPE COVID: Suspected 08/14/2022 08/14/2022 08/14/2022 9:17 AM CDT COVID19 08/14/2022 08/14/2022 08/24/2022 3:06 AM CDT COVID: Recovered Comment:Added based on recent COVID infection. 08/24/2022 10/03/2022 11/22/2022 3:05 AM C DT documented as of this encounter Care Teams Hotel Attendant Relationship Specialty Start Date End Date Unknown, Notinfile PCP - General 12/27/18 04/23/19 No, Physician PCP - General 04/24/19 01/14/21 Abelino Stover MD PCP - General Family Medicine 01/15/21 03/28/21 No, Physician PCP - General 03/29/21 05/13/21 Mckenna Rios DO [address] [place] [address] PCP - General Obstetrics and Gynecology 05/14/21 06/16/21 Abelino Stover MD PCP - General Family Medicine 11/19/21 Gabriel Cano MD [address] [place] [id number] Farm Boss Obstetrics and Gynecology 06/29/21 Mckenna Rios DO [address] [place] [address] Consulting Physician Obstetrics and Gynecology 11/04/22 documented as of this encounter
--- OUTSIDE RECORDS SUMMARY | 2024-07-25 17:25 | XMS_ITS | Encounter Summary ---
Author Organization [facility] Address [address] [place] [address] Care Team Providers Care Electronic Scale Assembler And Tester Name Role Phone Wesly Shipley MD Primary Care Provider Miscellaneous, Not In File Primary Care Provider Unavailable Unknown, Notinfile Primary Care Provider Unavail able No, Physician Primary Care Provider [phone] Abelino Stover MD Primary Care Provider No, Physician Primary Care Provider Mckenna Rios DO Primary Care Provider Gabriel Cano MD Unavailable [phone] Abelino Stover MD Primary Care Provider Mckenna Rios DO Unavailable Encounter Details Date Type Department Care Team (Late st Contact Info) Description 12/03/2017 Documentation [facility] [address] [place] [id number] Zoe Mendez MD [address] [place] [address] Social History Tobacco Use Types Packs/Day Years Used Date Smoking Tobacco: Never Smokeless Tobacco: Never Alcohol Use Standard Drinks/Week Comments No 0 (1 standard drink = 0.6 oz pur e alcohol) Comments No Sex and Gender Information Value Date Recorded Sex Assigned at Not on file Legal Sex Female 11:17 PM WH[place]ATER R[place] GUIDE Gender Identity Not on file Sexual Orientation Not on file documented as of this encounter Plan of Treatment Upcoming Encounters Date Type Department Care Team (Late st Contact Info) Description 08/30/2024 Hospital Encounter [facility] [address] [place] [address] Gabriel Cano MD [address] [place] [address] documented as of this encounter Visit Diagnoses Not on filedocumented in this encounter Additional Health Concerns Infection Onset Date Last Indicated Resolved Time COVID19 Comment:Added from the Screening question BPA, identifying patients that tested positive for COVID in the last 14 days and the result is from a facility outside [facility] . 05/09/2021 05/09/2021 05/22/2021 3:05 AM [place] GUIDE COVID: Suspected 08/14/2022 08/14/2022 08/14/2022 9:17 AM CDT COVID19 08/14/2022 08/14/2022 08/24/2022 3:06 AM CDT COVID: Recovered Comment:Added based on recent COVID infection. 08/24/2022 10/03/2022 11/22/2022 3:05 AM C DT documented as of this encounter Care Teams Electronic Scale Assembler And Tester Relationship Specialty Start Date End Date Wesly Shipley MD [address] [place] [address] [address] MADRID [address] [address] PCP - General Obstetrics and Gynecology 10/22/17 02/14/18 Miscellaneous, Not In File PCP - General 02/15/18 12/26/18 Unknown, Notinfile PCP - General 12/27/18 04/23/19 No, Physician PCP - General 04/24/19 01/14/21 Abelino Stover MD PCP - General Family Medicine 01/15/21 03/28/21 No, Physician PCP - General 03/29/21 05/13/21 Mckenna Rios DO [address] [place] [address] PCP - General Obstetrics and Gynecology 05/14/21 06/16/21 Abelino Stover MD PCP - General Family Medicine 11/19/21 Gabriel Cano MD [address] [place] [address] [address] Professor Of Fine Art Obstetrics and Gynecology 06/29/21 Mckenna Rios DO [address] [place] [address] Consulting Physician Obstetrics and Gynecology 11/04/22 documented as of this encounter
--- OUTSIDE RECORDS SUMMARY | 2024-07-25 17:25 | XMS_ITS | Encounter Summary ---
Author Organization [facility] Address [address] [place] [address] Phone Care Team Providers Care Manual Tester Name Role Phone Provider, None Primary Care Provider Farhat Tejada MD Unavailable [phone] Encounter Details Date Type Department Care Team (Late st Contact Info) Description 02/06/2021 Lab Requisition [facility] [address] [place] [address] Kami Falcon, SHOP TEACHER, HEEL SEAT FITTER MACHINE [address] [place] [address] Encounter for pre-employment examination Social History Tobacco Use Types Packs/Day Years [...] as of this encounter Plan of Treatment Not on file documented as of this encounter Procedures Procedure Name Priority Date/Time Associated Diagnosis Comments QUANTIFERON-TB GOLD PLUS Routine 02/06/2021 11:20 AM CDT Encounter for pre-employment examination documented in this encounter Results * QUANTIFERON-TB GOLD PLUS (02/06/2021 11:20 AM CDT) NIL CONTROL 0.06 <8.01 IU/mL 02/08/2021 1:14 PM CDT [facility] TB ANTIGEN 1 0.00 <0.35 IU/mL 02/08/2021 1:14 PM CDT [facility] TB ANTIGEN 2 0.00 <0.35 IU/mL 02/08/2021 1:14 PM CDT [facility] MITOGEN CONTROL >10.00 >0.49 IU/mL 02/09/20 1:14 PM CDT [facility] INTEPRETATION TB NEGATIVE NEGATIVE, NEGATIVE (TB antigen response less than 25% of internal negative control value) 02/08/2021 1:14 PM CDT [facility] Comment:No immune response t o Mycobacterium tuberculosis antigens was noted. M. tuberculosis infection unlikely. Blood Venipuncture / Unknown 02/06/2021 11:20 AM CDT 02/06/2021 12:42 PM CDT Narrative [facility] - 02/08/2021 1:14 PM CDT A POSITIVE QUANTIFERON-TB GOLD PLUS RESULT SHOULD NOT BE THE SOLE OR DEFINITIVE BASIS FOR DETERMINING INFECTION WITH M. TUBERCULOSIS. Diagnosing or excluding tuberculosis disease, and assessing the probability of LTBI, requires a combination of epidemiological, historical, medical and diagnostic findings (e.g., acid fast bacilli (AFB) smear and culture, chest xray) that should be taken into account when interpreting QFT-Plus results. Furthermore, the magnitude of the measured gamma interferon level cannot be correlated to stage or degree of infection, level of immune responsiveness, or likelihood for progression to active disease. The Nil control adjusts for background (e.g., elevated levels of circulating gamma interferon or presence of heterophile antibodies). The Mitogen control serves as an internal positive control and verifies each specimen tested can produce a gamma interferon response. Low mitogen may occur with insufficient lymphocytes, reduced lymphocyte activity due to improper specimen handling, filling/mixing of the Mitogen tube, or inability of the patient's lymphocytes to generate gamma interferon. Infection with other Mycobacteria, including M. kansasii, M. szulgai, and M. marinum, may cause positive results. A negative QuantiFERON-TB Gold Plus result does not preclude the possibility of M. tuberculosis infection or tuberculosis disease: false negative results can be due to stage of infection (e.g., specimen obtained prior to the development of cellular immune response), co-morbid conditions which affect immune function, or other individual immunological factors. The minimum number of lymphocytes required for a reliable test result has not been established and may also be variable. The performance of the [place] format of the QuantiFERON-TB Gold Plus test has not been extensively evaluated with specimens from the following groups of individuals: 1. Individuals who have impaired or altered immune function such as those who have HIV infection or AIDS; those who have transplantation managed with immunosuppressive treatment; or others who receive immunosuppressive drugs (e.g., corticosteroids, methotrexate, azathioprine, cancer chemotherapy); and those who have other clinical conditions: diabetes, silicosis, chronic renal failure, hematological disorders (e.g., leukemia and lymphomas), and other specific malignancies (e.g., carcinoma of the head or neck and lung). 2. Individuals younger than age 17 years 3. women Kami Falcon APRN, CNP IMMUNOLOGY ORDERABLES F inal Result [facility] [address] [place] [address], documented in this encounter Visit Diagnoses Diagnosis Encounter for pre-employment examination Health examination of defined subpopulation documented in this encounter Additional Health Concerns Infection Onset Date Last Indicated Resolved Time COVID - 19 11/22/2021 11/22/2021 12/02/2021 12:1 6 AM CDT documented as of this encounter Care Teams Manual Tester Relationship Specialty Start Date End Date Provider, None [place] PCP - General 01/21/16 Farhat Murillo MD [address] [address] General Surgery 10/22/16 documented as of this encounter
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
--- OUTSIDE RECORDS SUMMARY | 2024-07-25 17:26 | XMS_ITS | Encounter Summary ---
Author Organization [facility] Address [address] [facility] [place] [address] Care Team Providers Care Bridge Manager Name Role Phone Fanny Gilmore APRN-[facility] Primary Care Provider Reason for Referral * (Routine) - Open Specialty Diagnoses / Procedures Referred By Contfreddy t Referred To Contact Diagnoses History of delivery Seizure disorder during , antepartum (HCC) IUGR (intrauterine growth retardation) in prior , , unspecified trimester (HCC) Encounter for ultrasound to assess growth (HCC) 35 weeks gestation of ([facility]) Encounter for anatomic survey ([facility]) Poor growth affecting management of mother, antepartum, single or unspecified fetus (HCC) Procedures BIOPHYSICAL PROFILE W NST Alvin Suarez MD [address] [place] [address] Referral ID Status Reason Start Date Expiration Date Visits Re quested Visits Authorized [id number] Open 07/20/2024 07/20/2025 1 1 * (Routine) - Open Specialty Diagnoses / Procedures Referred By Contfreddy t Referred To Contact Diagnoses History of delivery Seizure disorder during , antepartum (HCC) IUGR (intrauterine growth retardation) in prior , , unspecified trimester (HCC) Encounter for ultrasound to assess growth (HCC) 35 weeks gestation of (HCC) Encounter for anatomic survey (HCC) Poor growth affecting management of mother, antepartum, single or unspecified fetus (HCC) Procedures BIOPHYSICAL PROFILE W Alvin Leon MD [address] [place] [address] Referral ID Status Reason Start Date Expiration Date Visits Re quested Visits Authorized [id number] Open 07/20/2024 07/20/2025 1 1 Reason for Visit * Reason Comments Ultrasound Non-stress Test * (Routine) - Open Specialty Diagnoses / Procedures Referred By Contac t Referred To Contact Diagnoses History of delivery Seizure disorder during , antepartum (HCC) IUGR (intrauterine growth retardation) in prior , , unspecified trimester (HCC) Encounter for ultrasound to assess growth (HCC) 35 weeks gestation of (HCC) Encounter for anatomic survey (HCC) Poor growth affecting management of mother, antepartum, single or unspecified fetus (HCC) Procedures BIOPHYSICAL PROFILE W Alvin Leon MD [address] [place] [address] Referral ID Status Reason Start Date Expiration Date Visits Re quested Visits Authorized [id number] Open 07/20/2024 07/20/2025 1 1 Encounter Details Date Type Department Care Team (Late st Contact Info) Description 07/25/2024 1:45 PM CDT Hospital Encounter [facility] [address] [phone] Bam Camp MD [facility] [facility] [address] [place] [address] Social History Tobacco Use Types Packs/Day Years Used Date Smoking Tobacco: Passive Smo ke Exposure - Never Smoker Smokeless Tobacco: Never Alcohol Use Standard Drinks/Week Comments No 0 (1 standard drink = 0.6 oz pur e alcohol) Estimated Date of Delivery Comme nts Yes 08/31/2024 Based on Ultraso und Sex and Gender Information Value Date Recorded Sex Assigned at Not on file Gender Identity Not on file Sexual Orientation Not on file documented as of this encounter Progress Notes * Edith Hdez RN - 07/25/2024 2:42 PM CDT Pt here for ultrasound at 34w5d. Pt reports regular contractions and states that she lost her mucous plug on Thursday. Pt reports good movement and denies vaginal bleeding. Per Dr. Camp, pt sent to [facility] for evaluation to rule out labor. Notified EMMA King that pt is on her way. documented in this encounter Plan of Treatment Not on file documented as of this encounter Procedures Procedure Name Priority Date/Time Associated Diagnosis Comments BIOPHYSICAL PROFILE W NST Routine 07/25/2024 1:53 PM CDT History of delivery Seizure disorder during , antepartum IUGR (intrauterine growth retardation) in prior , , unspecified trimester Encounter for ultrasound to assess growth 35 weeks gestation of Encounter for anatomic survey Poor growth affecting management of mother, antepartum, single or unspecified fetus documented in this encounter Results * BIOPHYSICAL PROFILE W NST (07/25/2024 1:53 PM CDT) Linked Results Indication ======== SGA Fetus on Outside Scan Late anatomy scan Seizure disorder on Keppra IUGR & sPTB in prior pregnancies 1st-trimester vaginal bleeding, Circumvallate placenta History ====== OB History 5. Para 1 [id number] 1. miscarriage 2017 2. miscarriage (< 20 weeks) 2017. Gest. age 19 w + 0 d. Sex of child: female. Details: Vaginal delivery 3. live 2019. Gest. age 38 w + 6 d. Weight 2,749 g. Sex of child: male. Details: Vaginal delivery 4. miscarriage 2023 Lab Tests Test Date Result NIPT Low risk Maternal Assessment Physical Exam Height 157 cm, 5 ft 2 in. Weight 63 kg, 138 lb. Initial weight 56 kg, 124 lb. BMI 25.24 kg/m . Initial BMI 22.68 kg/m . Weight gain 6 kg, 14 lb Method ====== Transabdominal ultrasound. View: Suboptimal view: limited by late gestational age ========= Reeder . Number of fetuses: 1 Dating ====== Date Details Gest. age KARTHIK Stated KARTHIK 34 w + 5 d 08/31/2024 U/S 07/25/2024 based upon AC, BPD, Femur, HC 33 w + 3 d 09/09/2024 Assigned dating based on stated KARTHIK, selected on 03/18/2024 34 w + 5 d 08/31/2024 General Evaluation Cardiac activity present. FHR 143 bpm. Presentation: cephalic Placenta: Placental site: posterior. Circumvallate Umbilical cord: Cord vessels: 3 vessel cord. Insertion site: suboptimal Amniotic fluid: Amount of AF: normal. MVP 5.0 cm. GORDON 13.9 cm. Q1 5.0 cm, Q2 0.0 cm, Q3 4.1 cm, Q4 4.8 cm Biometry BPD 81.8 mm 32w 6d 8% Hadlock HC 307.1 mm 34w 2d 10% Hadlock Cerebellum tr 45.2 mm 20% [place] AC 296.1 mm 33w 4d 24% Hadlock Femur 63.6 mm 32w 6d 6% Hadlock Humerus 56.7 mm 33w 0d 20% Daniel HC / AC 1.04 -/- Hadlock Weight Calculation: EFW 2,183 g 15% Hadlock EFW (lb,oz) 4 lb 13 oz EFW by Hadlock ([id number]) Head / Face / Neck Biometry: CM 7.1 mm 40% Nicolaides appropriate Growth Overview = Exam date GA BPD (mm) HC (mm) AC (mm) FL (mm) HL (mm) EFW (g) 03/18/2024 16w 2d 33.2 48% 124.9 37% 108.2 66% 18 13% 144 28% 07/25/2024 34w 5d 81.8 8% 307.1 10% 296.1 24% 63.6 6% 56.7 20% 2183 15% Anatomy The following structures appear normal: Head / Neck Cranium. Choroid plexus. Midline falx. Cavum septi pellucidi. Cerebellum. Cisterna magna. Thalami. Face Lips. Profile. Nose. Nasal bone. Orbits. Heart / Thorax RVOT view. LVOT view. 3-vessel view. 0-dvogmy-euxoyqv view. Situs. Bicaval view. Great vessels. Right lung. Left lung. Diaphragm. Abdomen Stomach. Kidneys. Bladder. Bowel. Genitals. Spine Cervical spine. Thoracic spine. Lumbar spine. Sacral spine. Extremities / Skeleton Right arm. Right leg. The following structures could not be adequately visualized: Head / Neck Lateral ventricles. Heart / Thorax 4-chamber view. Aortic arch view. Ductal arch view. Abdomen Cord insertion. Extremities / Skeleton Hands. Left arm. Feet. Left leg. The following structures could not be examined: Head / Neck Nuchal fold. sex: male. Maternal Structures Right Ovary Normal Left Ovary Normal Impression ========= Single, live intrauterine at 34w 5d Amniotic fluid volume: normal size is appropriate for the gestational age No malformations seen within the limits of ultrasound Very active baby; breathing movements seen Follow-up ======== The patient reports contractions and losing her mucus plug on 3 days ago. She was advised to go to [facility] to rule out labor. Coding ====== Procedures 30712: US Preg Uterus Detailed [place] PACS Anatomical Region Laterality Modality Other 07/25/2024 1:53 PM CDT R Milan Suarez MD [facility] ORDERABLES documented in this encounter Visit Diagnoses Diagnosis History of delivery- Primary Seizure disorder during , antepartum (HCC) IUGR (intrauterine growth retardation) in prior , , unspecified trimester (HCC) Encounter for ultrasound to assess growth (HCC) 35 weeks gestation of (HCC) state, incidental Encounter for anatomic survey (HCC) Encounter for anatomic survey SGA (small for gestational age) (HCC) [id number] without mention of malnutrition, unspecified (weight) Poor growth affecting management of mother, antepartum, single or unspecified fetus (HCC) documented in this encounter Care Teams Bridge Manager Relationship Specialty Start Date End Date Fanny Gilmore APRN-[employer] [address] [address] [place] [address] [place] [id number] PCP - General 10/27/19 documented as of this encounter
--- OUTSIDE RECORDS SUMMARY | 2024-07-25 17:26 | XMS_ITS | Clinical Summary ---
Author Organization [facility] Address [address] [place] [address] Care Team Providers Care Commissioner Of Officials Name Role Phone Fanny Gilmore APRN-PIPEMAN Primary Care Provider Source Comments [facility],non-owned Affiliates and Associated Physician Practices is amultiple site organization consisting of ambulatory clinics and hospital sitesin [place], [place], [place] and [place]. This disclosure is being madepursuant to the Care Everywhere program and may not contain all information available regarding this patient. Last updated 18.[facility] Allergies Active Allergy Reactions Criticality Noted Date Comments Morphine 01/23/2016 Hives Medications * Be aware that medications may not be up to date on this document. Alwaysverify current medications with the patient. Medication Sig Dispensed Refills Start Date End Date Status Vit-Fe Fumarate-FA ( VITAMIN WITH IRON) tabletIndications: Take 1 tablet by mouth once daily Reasons: Active albuterol HFA (PROVENTIL;VENTOLI N;PROAIR) 108 (90 Base) MCG/ACT inhalerIndications :Asthma Inhale 2 puffs by mouth every 6 hours as needed for Shortness of Breath Reasons: Asthma Active aspirin (ASPIRIN) 81 MG tabletIndications: preeclampsia prevention Take 2 tablets by mouth once daily Reasons: preeclampsia prevention 60 tablet 11 05/25/2019 Active Active Problems Problem Noted Date Diagnosed Date Urinary urgency 07/06/2019 Assessment & Plan (07/06/2019 3:48 PM CONSULTING UTILITY FORESTER): Maternal Medicine recommendations: 1. orders given for urine analysis and culture 1. 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 The incidence of fdc health conditions and neurodevelopmental delay can also be increased in fetuses with severe growth restriction. Potential etiologies of the current growth lag include: constitutionally small fetus, placental insufficiency, aneuploidy or another genetic condition, and transplacental infection. There is also increased concern for the development of preeclampsia and monitoring for this condition is warranted. In diagnosing growth restriction by ultrasound, abdominal circumference less than the 10th percentile has the greatest sensitivity and estimated weight less than the 3rd percentile has the greatest specificity. When the estimated weight is less than the 10th percentile and there are abnormal changes in the umbilical or middle cerebral artery, this has greatest specificity for adverse outcomes. growth restriction can be early onset (before 31 weeks) or late onset (after 31 weeks). Early onset FGR is associated with a greater degree of vascular abnormality in both the maternal and compartments of the placenta. Early onset can have a quicker deterioration pattern, that is usually characterized by the following sequential abnormal changes: abnormal umbilical artery Doppler, brain sparing, abnormal venous Dopplers, abnormal non-stress test and finally abnormal biophysical profile (5 component exam). I discussed that if there are no additional complications of growth restriction (for example abnormal surveillance or concerning Doppler changes) that delivery at 39 weeks is the appropriate management for this complication of . If there are additional complications that arise in this , earlier delivery may be indicated. growth restriction now with abdominal circumference less than the 3rd percentile. Infection studies do not demonstrate a pattern suggestive of infectious causes of growth restriction. Cell free DNA low risk for common aneuploidy seen. No identified major malformations to date. Maternal Medicine recommendations: 1. daily kick counts--instructions reviewed with the patient 2. Weekly BPP and Doppler study 1. Add nonstress testing around 30 weeks 3. Reassess growth every 3 weeks 4. Recommend HSV prophylaxis starting around 34 weeks due to maternal serology 5. Delivery initiation in the 39th week unless earlier delivery is indicated by any of the followin. Additional maternal comorbidities 2. nonreassuring testing 3. oligohydramnios (as defined by a deepest vertical pocket less than 2 cm) 4. nonreassuring testing Assessment & Plan (07/06/2019 3:46 PM CONSULTING UTILITY FORESTER): Early onset growth restriction. Maternal Medicine recommendations: 1. orders given for maternal serology for HSV 1/2, CMV and toxoplasma (all IgG/IgM) 2. reassess growth in 4 weeks with Maternal- Medicine consultation Seizure disorder during , antepartum Overview (08/03/2019): 06/22/[address] Suarez's office. Patient took herself off Keppra for seizure disorder. maternal serum AFP within normal limits Assessment & Plan (07/06/2019 5:49 PM CONSULTING UTILITY FORESTER): Patient denies any seizure like activity this . Last seizure >1 year ago Reiterated today that she can start Keppra now that it cannot cause anomaly, as previously recommended by Dr. Colmenares at previous visit. Risks of seizures during reviewed. [facility] Plan: Nursing assisting in identifying patient's previous neurologist for follow up appointment in [place]. I have encouraged her compliance with this appointment. Echogenic bowel of fetus 05/25/2019 Overview (08/03/2019): CF screen drawn at primary material lister's office--still pending from primary OB office as of 06/20/19. Seq 1-Neg Cf DNA screen, low risk Assessment & Plan (07/06/2019 3:45 PM CONSULTING UTILITY FORESTER): Ultrasound today with 1 area that is as echogenic as bone. Maternal Medicine recommendations: 1. please submit a copy of the cystic fibrosis carrier screening result for review Assessment & Plan (05/25/2019 8:28 PM CONSULTING UTILITY FORESTER): Requesting a copy of the CF screen results from the referring material lister Warrants re-evaluation by ultrasound at next exam to determine whether or not this was a false-positive finding Family history of hypertension 05/25/2019 Assessment & Plan (05/25/2019 8:26 PM CONSULTING UTILITY FORESTER): Aspirin prophylaxis Sayra appears to be at increased risk of preeclampsia. I recommend aspirin prophylaxis for prevention. The current recommended regimen is 2 low dose tablets daily [162 mg daily dose], starting between 12-13 weeks gestation until 36 weeks gestation. History of delivery 05/20/2019 Overview (06/27/2019): Sequential 1 done ; pending part 2 blood draw NIPT- Neg B+ Neg/ Im ; TPA-neg; HIV-Neg. HBsag-Neg HbgA1c- 4.8 HH 12.3; 35.6 plts 203 Anatomy screen: incomplete, Bilateral polydactyly Assessment & Plan (07/06/2019 5:43 PM CONSULTING UTILITY FORESTER): Asymptomatic today for labor concerns. Cervical length to follow in formal ultrasound report. Maternal Medicine Recommendations: 1. Serial cervical length measurements from 16-24 weeks with consideration for cerclage should cervical length < 2.5 cm be identified 2. I encouraged valuation of abnormal vaginal discharge by the primary material lister with treatment as indicated Assessment & Plan (05/25/2019 8:29 PM CONSULTING UTILITY FORESTER): Records received after consultation. Patient was reportedly 22 weeks and five days presented with cramping and vaginal bleeding. Initial white blood cell count 12.6, H&H 10.8/31.4, platelet 175. CMP unremarkable. Rh positive. antibody screen negative. Had witnessed pre labor rupture of membranes. Had cord prolapse observed. Discussion between primary OB and [facility] MFM. Went on to have spontaneous delivery of the body with delayed delivery of the head. Delivered a stillborn (weight 322 g). Placenta pathology without any significant findings (no significant inflammation). In women with previous spontaneous , recurrence risk is 25-30%. We discussed that the standard intervention for many years has been 17 OH PC supplementation. Administration of 04-hfkgjba-eyrtskcrarok caproate (17-OHPC) weekly, starting from 16-18 weeks to 36 weeks has shown to reduce the risk of premature delivery. 17-OHPC has been found to decrease the risk of delivery at 37, 35, and 32 weeks is high risk patients. The fdc data on the impact of progesterone exposure in on development is not available but the short term data is reassuring. I disclosed the current question regarding whether the effectiveness of IM progesterone supplementation is less than what was previously reported. I also discussed the role of serial cervical length assessments, aimed at identifying a prematurely shortened cervix to allow intervention for a cerclage were the length to become shorter than 2.5 cm before 24 weeks. Cerclages have been shown to be of benefit for such women with prior history of spontaneous premature delivery and sonographic short cervix. We also discussed the alternatives such as: history indicated prophylactic cerclage as well as off-label use of prophylactic vaginal progesterone. We discussed that cervical length surveillance has been used to identify those women who would benefit from cerclage placement and avoid unnecessary cerclage in other women. I reviewed the risks regarding cerclage placement as well as the gestational age limitations for this intervention. We also discussed the safety profile of vaginal progesterone and that the bulk of information comes from women with a short cervix with and without a previous history of delivery. The patient voiced an understanding to the above conversation and all questions were answered to her satisfaction. After our discussion, the patient elected to have cervical length surveillance. Maternal Medicine Recommendations: 1. Serial cervical length measurements from 16-24 weeks with consideration for cerclage should cervical length < 2.5 cm be identified 2. evaluation of abnormal vaginal discharge by the primary material lister with treatment as indicated Prematurity 2000 Overview (05/25/2019): Was born several months early. Prematurity complications reported: had cardiac surgery, required oxygen for two years, epilepsy, poor vision Assessment & Plan (05/25/2019 8:24 PM CONSULTING UTILITY FORESTER): I discussed the history of significant prematurity. It is unclear whether or not that history alone is its own risk factor for delivery. Requesting records Heart abnormality Assessment & Plan (07/06/2019 5:46 PM CONSULTING UTILITY FORESTER): NYHA class 1/2 symptoms. Previously requesting medical records to identify the congenital anomaly, records requested from [facility] and have not been obtained. Patient denies current chest pain, persistent palpitations. Reports SOB relieved with Albuterol use. [facility] Plan: echocardiogram ordered. Consider maternal cardiology consult if patient becomes symptomatic or if we obtain records. Assessment & Plan (05/25/2019 8:32 PM CONSULTING UTILITY FORESTER): NYHA class 1/2 symptoms. Requesting medical records to identify the congenital anomaly--patient to contact her mother and communicate the name of the hospital where she was born to our office. We discussed that there may be recommendation for echocardiogram as well as for a maternal echocardiogram to be performed. Anxiety and depression Assessment & Plan (07/06/2019 5:51 PM CONSULTING UTILITY FORESTER): Reports coping well currently without significant anxiety or depressive symptoms. MFM Plan: Ongoing close evaluation for mood changes during and PP period. Assessment & Plan (05/25/2019 8:25 PM CONSULTING UTILITY FORESTER): Mood appropriate today. At risk for mood deterioration during the and . Maternal- meds recommendations: 1. Re-evaluate mood at visits 2. Would benefit from Estimated Date of Delivery Comme nts Yes 08/31/2024 Based on Ultraso und Resolved Problems Problem Noted Date Diagnosed Date Resolved Date Flank pain 07/06/2019 07/06/2019 Assessment & Plan (07/06/2019 5:50 PM CONSULTING UTILITY FORESTER): Flank pain with urinary frequency. Sent with order for UA and urine culture. Encounters Date Type Department Care Team Description 07/25/2024 1:45 PM CDT Hospital Encounter [facility] [address] [place], [place] [id number] Bam Camp MD 05/20/2024 Orders Only [facility] [address] [place] [address] Mary Ellen Moeller RN 05/06/2024 Telephone [facility] [address] [place] [address] Edith Hdez, RN Scheduling from Last 3 Months Family History Medical History Relation Name Comments Diabetes - Type 2 Maternal Grandmother Cancer - Breast Mother Hypertension Mother Diabetes - Type 2 Paternal Grandmother Relation Name Status Comments Maternal Grandmother Mother Paternal Grandmother Social History Tobacco Use Types Packs/Day Years [...] Sign Reading Time Taken Comments Blood Pressure 103/62 04/06/2024 1:42 PM CONSULTING UTILITY FORESTER Pulse 100 04/06/2024 1:42 PM CONSULTING UTILITY FORESTER Temperature 36.6 C (97.8 F) 10/18/2019 2:09 PM CDT Respiratory Rate 16 09/20/2019 2:15 PM CDT Oxygen Saturation 100% 09/20/2019 2:15 PM CDT Inhaled Oxygen Concentration - - Weight 59.9 kg (132 lb) 04/06/2024 1:42 PM CONSULTING UTILITY FORESTER Height 157.5 cm (5' 2 ) 04/06/2024 1:42 PM CONSULTING UTILITY FORESTER Body Mass Index 24.14 04/06/2024 1:42 PM CONSULTING UTILITY FORESTER Plan of Treatment Health Maintenance Due Date Last Done Comments PAP SMEAR 1998 HPV VACCINE (1 - 3-dose series) 2013 DTAP/TDAP/TD VACCINES (1 - Tdap) 2017 HEPATITIS B VACCINE (1 of 3 - 19+ 3-dose series) 2017 COVID-19 VACCINE (3 - 2023-2 5 season) 2024 06/25/2022, 10/02/2021 INFLUENZA VACCINE (#1) 2024 03/09/2015 DEPRESSION SCREENING 05/04/2024 OB-ONE HOUR GLUCOSE 05/25/2024 OB-TDAP CURRENT 06/01/2024 OB-RHOGAM INJECTION 06/08/2024 OB-GROUP B STREP SCREEN 07/27/2024 ZOSTER VACCINE (1 of 2) 2048 HIV SCREENING Completed 02/08/2024 HEPATITIS C SCREENING Completed 02/12/2024 HIB VACCINE Aged Out No longer eligi ble based on patient's age to complete this topic MENINGOCOCCAL (Group B) VACCINE SHARED DECISION-MAKING Aged Out No longer eligible based on patient's age to complete this topic MENINGOCOCCAL GROUPS A/C/Y/W VACCINE Aged Out No longer eligible b ased on patient's age to complete this topic PNEUMOCOCCAL VACCINE Aged Out No long er eligible based on patient's age to complete this topic Respiratory Syncytial Virus (RSV) Vaccine Pt: or over 60 yrs (No Doses Required) Completed Procedures Procedure Name Priority Date/Time Associated Diagnosis Comments BIOPHYSICAL PROFILE W NST Routine 07/25/2024 1:53 PM CDT History of delivery Seizure disorder during , antepartum IUGR (intrauterine growth retardation) in prior , , unspecified trimester Encounter for ultrasound to assess growth 35 weeks gestation of Encounter for anatomic survey Poor growth affecting management of mother, antepartum, single or unspecified fetus from Last 3 Months Results * BIOPHYSICAL PROFILE W NST (07/25/2024 1:53 PM CDT) Linked Results Indication ======== SGA Fetus on Outside Scan Late anatomy scan Seizure disorder on Keppra IUGR & sPTB in prior pregnancies 1st-trimester vaginal bleeding, Circumvallate placenta History ====== OB History 5. Para 1 [id number] 1. miscarriage 2017 2. miscarriage (< 20 [...] 4 lb 13 oz EFW by [facility] ([id number]) Head / Face / Neck Biometry: CM [...] Thorax RVOT view. LVOT view. 3-vessel view. 6-ubuiyf-uipnaxk view. Situs. Bicaval view. Great vessels. Right [...] ago. She was advised to go to [facility] to rule out labor. Coding ====== Procedures [id number]: US Preg Uterus Detailed [employer] PACS Anatomical Region Laterality Modality Other 07/25/2024 1:53 PM CDT R Milan Suarez MD [facility] ORDERABLES from Last 3 Months Care Teams Commissioner Of Officials Relationship Specialty Start Date End Date Fanny Gilmore, BUSINESS ANALYSIS SPECIALIST-PIPEMAN [address] [place] [address] [place] [id number] PCP - General 10/27/19
--- NOTE | 2024-08-21 08:35 | PM.OBTRLD ---
OB - Triage/Final Diagnosis Visit Information Comments/Additional reasons for admission: I have assessed the risk for this patient, Sayra Hsu, and determined that she would benefit from observation care.
== END 2024-07-25 16:15 | disposition home or self-care (01) ==
PROVIDERS: Admitting Provider Obstetrics & Gynecology; PCP Advanced Practice Midwife; Visit Provider Obstetrics & Gynecology
DX: O47.03 False labor before 37 completed weeks of gestation, third trimester (principal); Z3A.34 34 weeks gestation of pregnancy
CPT/HCPCS: G0378; G0379

== ENCOUNTER 2024-07-29 12:29 | Inpatient (IN) | payer OTHER, SELFPAY ==
[2024-07-29] VITALS (77 sets, daily range): BP systolic 65–118; BP diastolic 25–93; PULSE 68–184; RESP 18; TEMP 36.8–37.6; O2SAT 97–100; BMI 27.0
--- NOTE | ~2024-07-29 | CT_ITS ---
CLINICAL INDICATION: pain COMPARISON: None. TECHNIQUE: Multiple contiguous axial images of the abdomen and pelvis were performed without the admi nistration of intravenous contrast The dose-length product (DLP) was 234.20 mGy-cm. Automated exposure control and iterative reconstruction technique were employed. FINDINGS/OBSERVATIONS: Visualized lower thorax: The bilateral lung bases are clear. The heart is of normal size, without pericardial effusion. Liver: The liver demonstrates homogeneous attenuation and is not enlarged. Gallbladder and biliary system: The gallbladder is distended, and otherwise unremarkable. Pancreas: Limited evaluation of the pancreas secondary to the lack of intravenous contrast. Spleen: The spleen demonstrates homogeneous attenuation and is not enlarged. Kidneys: 2 mm nonobstructing calculus within the lower pole the right kidney. The remainder of the bilateral kidneys are unremarkable, without hydronephrosis or additional renal c alculi. Adrenal glands: Unremarkable. Gastrointestinal tract: Fecal stasis within the colon. Appendix: The appendix is not definitively visualized. However, no pericecal inflammatory change is identified suggest the presence of acute appendicitis. Vasculature: Unremarkable. Lymph nodes: Limited evaluation without intravenous contrast. Pelvic structures: The bladder is decompressed, limiting its evaluation. The uterus is markedly enlarged to the expected extending to the level of L3, 5 cm above t he umbilicus. Within the lower portion of the uterus, is a 4.6 cm focus of increased attenuation for which blood products are suspected. Body wall and musculoskeletal: Small fat-containing umbilical hernia. No significant degenerative disease within the lower thoracic or lumbosacral spine. IMPRESSION: 4.6 cm focus of increased attenuation within the lower third of the enlarged uterus for wh ich blood products are suspected. 2 mm nonobstructing calculus within the lower pole of the right kidney. Reviewed, dictated and finalized at location A. IMPRESSION: 4.6 cm focus of increased attenuation within the lower third of the enlarged po stpartum uterus for which blood products are suspected. 2 mm nonobstructing calculus within the lower pole of the right kidney.
--- OUTSIDE RECORDS SUMMARY | 2024-07-29 12:59 | XMS_ITS | Clinical Summary ---
Author Organization [facility] Address [address] [place] [address] Care Team Providers Care Director Of Labor And Delivery Name Role Phone Fanny Gilmore APRN-STEAM FITTER SUPERVISOR Primary Care Provider Source Comments [facility],non-owned Affiliates and Associated Physician Practices is amultiple site organization consisting of ambulatory clinics and hospital sitesin [place], [place], [place]. This disclosure is being madepursuant to the Care Everywhere program and may not contain all information available regarding this patient. Last updated 18.[facility] Allergies Active Allergy Reactions Criticality Noted Date [...] 07/06/2019 Assessment & Plan (07/06/2019 3:48 PM BLANKET CUTTING MACHINE OPERATOR): Maternal Medicine recommendations: 1. orders given for [...] delivery, and and demise. The incidence of intermediate health conditions and neurodevelopmental delay can also [...] testing Assessment & Plan (07/06/2019 3:46 PM BLANKET CUTTING MACHINE OPERATOR): Early onset growth restriction. Maternal Medicine recommendations: [...] limits Assessment & Plan (07/06/2019 5:49 PM BLANKET CUTTING MACHINE OPERATOR): Patient denies any seizure like activity this . Last seizure >1 year ago Reiterated today that she can start Keppra now that it cannot cause anomaly, as previously recommended by Dr. Colmenares at previous visit. Risks of seizures during reviewed. [facility] Plan: Nursing assisting in identifying patient's previous neurologist for follow up appointment in [place]. I have encouraged her compliance with this appointment. Echogenic bowel of fetus 05/25/2019 Overview (08/03/2019): CF screen drawn at primary bench molder's office--still pending from primary OB office as of 06/20/19. Seq 1-Neg Cf DNA screen, low risk Assessment & Plan (07/06/2019 3:45 PM BLANKET CUTTING MACHINE OPERATOR): Ultrasound today with 1 area that is as echogenic as bone. Maternal Medicine recommendations: 1. please submit a copy of the cystic fibrosis carrier screening result for review Assessment & Plan (05/25/2019 8:28 PM BLANKET CUTTING MACHINE OPERATOR): Requesting a copy of the CF screen results from the referring bench molder Warrants re-evaluation by ultrasound at next exam to determine whether or not this was a false-positive finding Family history of hypertension 05/25/2019 Assessment & Plan (05/25/2019 8:26 PM BLANKET CUTTING MACHINE OPERATOR): Aspirin prophylaxis Sayra appears to be at [...] polydactyly Assessment & Plan (07/06/2019 5:43 PM BLANKET CUTTING MACHINE OPERATOR): Asymptomatic today for labor concerns. Cervical length to follow in formal ultrasound report. Maternal Medicine Recommendations: 1. Serial cervical length measurements from 16-24 weeks with consideration for cerclage should cervical length < 2.5 cm be identified 2. I encouraged valuation of abnormal vaginal discharge by the primary bench molder with treatment as indicated Assessment & Plan (05/25/2019 8:29 PM BLANKET CUTTING MACHINE OPERATOR): Records received after consultation. Patient was reportedly 22 weeks and five days presented with cramping and vaginal bleeding. Initial white blood cell count 12.6, H&H 10.8/31.4, platelet 175. CMP unremarkable. Rh positive. antibody screen negative. Had witnessed pre labor rupture of membranes. Had cord prolapse observed. Discussion between primary OB and [facility]. Went on to have spontaneous delivery of the body with delayed delivery of the head. Delivered a stillborn (weight 322 g). Placenta pathology without any significant findings (no significant inflammation). In women with previous spontaneous , recurrence risk is 25-30%. We discussed that the standard intervention for many years has been 17 OH PC supplementation. Administration of 11-gjxwevv-uykiygvpgzih caproate (17-OHPC) weekly, starting from 16-18 weeks to 36 weeks has shown to reduce the risk of premature delivery. 17-OHPC has been found to decrease the risk of delivery at 37, 35, and 32 weeks is high risk patients. The intermediate data on the impact of progesterone exposure [...] of abnormal vaginal discharge by the primary bench molder with treatment as indicated Prematurity 2000 Overview (05/25/2019): Was born several months early. Prematurity complications reported: had cardiac surgery, required oxygen for two years, epilepsy, poor vision Assessment & Plan (05/25/2019 8:24 PM BLANKET CUTTING MACHINE OPERATOR): I discussed the history of significant prematurity. It is unclear whether or not that history alone is its own risk factor for delivery. Requesting records Heart abnormality Assessment & Plan (07/06/2019 5:46 PM BLANKET CUTTING MACHINE OPERATOR): NYHA class 1/2 symptoms. Previously requesting medical records to identify the congenital anomaly, records requested from [place] and have not been obtained. Patient denies current chest pain, persistent palpitations. Reports SOB relieved with Albuterol use. [facility] Plan: echocardiogram ordered. Consider maternal cardiology consult if patient becomes symptomatic or if we obtain records. Assessment & Plan (05/25/2019 8:32 PM BLANKET CUTTING MACHINE OPERATOR): NYHA class 1/2 symptoms. Requesting medical records to identify the congenital anomaly--patient to contact her mother and communicate the name of the hospital where she was born to our office. We discussed that there may be recommendation for echocardiogram as well as for a maternal echocardiogram to be performed. Anxiety and depression Assessment & Plan (07/06/2019 5:51 PM BLANKET CUTTING MACHINE OPERATOR): Reports coping well currently without significant anxiety or depressive symptoms. [facility] Plan: Ongoing close evaluation for mood changes during and PP period. Assessment & Plan (05/25/2019 8:25 PM BLANKET CUTTING MACHINE OPERATOR): Mood appropriate today. At risk for mood deterioration during the and . Maternal- meds recommendations: 1. Re-evaluate mood at visits 2. Would benefit from Estimated Date of Delivery Comme nts Yes 08/31/2024 Based on Ultraso und Resolved Problems Problem Noted Date Diagnosed Date Resolved Date Flank pain 07/06/2019 07/06/2019 Assessment & Plan (07/06/2019 5:50 PM BLANKET CUTTING MACHINE OPERATOR): Flank pain with urinary frequency. Sent with order for UA and urine culture. Encounters Date Type Department Care Team Description 07/27/2024 Telephone [facility] Women's Health Maternal & Care [address] [place] [id number] Mary Ellen Moeller RN Future Appointment (Patient called in to ask if she needed FU appt with [facility]. Spoke with Danielle at [facility] to see if we need to follow. ) 07/25/2024 1:45 PM CDT - 07/25/2024 11:59 PM CDT Hospital Encounter [facility] Maternal & Care [address] [place] [phone] Bam Camp MD Discharge Disposition: Home or Self Care 05/20/2024 Orders Only [facility] & [facility] [address] [place] [phone] Mary Ellen Moeller RN 05/06/2024 Telephone [facility] & [facility] [address] [place] [phone] Edith Hdez, RN Scheduling from Last 3 [...] Comments Blood Pressure 103/62 04/06/2024 1:42 PM BLANKET CUTTING MACHINE OPERATOR Pulse 100 04/06/2024 1:42 PM BLANKET CUTTING MACHINE OPERATOR Temperature 36.6 C (97.8 F) 10/18/2019 2:09 PM CDT Respiratory Rate 16 09/20/2019 2:15 PM CDT Oxygen Saturation 100% 09/20/2019 2:15 PM CDT Inhaled Oxygen Concentration - - Weight 59.9 kg (132 lb) 04/06/2024 1:42 PM BLANKET CUTTING MACHINE OPERATOR Height 157.5 cm (5' 2 ) 04/06/2024 1:42 PM BLANKET CUTTING MACHINE OPERATOR Body Mass Index 24.14 04/06/2024 1:42 PM BLANKET CUTTING MACHINE OPERATOR Plan of Treatment Health Maintenance Due Date [...] History ====== OB History 5. Para 1 [id number] 1. miscarriage 2017 2. miscarriage (< 20 weeks) 2018. Gest. age 19 w + 0 d. [...] 4 lb 13 oz EFW by Hadlock ([id number]) Head / Face / Neck Biometry: CM [...] Thorax RVOT view. LVOT view. 3-vessel view. 6-pmvcxp-oubnzws view. Situs. Bicaval view. Great vessels. Right [...] ago. She was advised to go to [facility] to rule out labor. Coding ====== Procedures 12657: US Preg Uterus Detailed [facility] PACS Anatomical Region Laterality Modality Other 07/25/2024 1:53 PM CDT R Milan Suarez MD [facility] ORDERABLES from Last 3 Months Care Teams Director Of Labor And Delivery Relationship Specialty Start Date End Date Fanny Gilmore, MANAGER SOFTWARE DEVELOPMENT-STEAM FITTER SUPERVISOR [address] [place] [address] PCP - General 10/27/19
--- OUTSIDE RECORDS SUMMARY | 2024-07-29 12:59 | XMS_ITS | Encounter Summary ---
Author Organization [facility] Address [address] [place] [address] Phone Care Team Providers Care Banking Manager Name Role Phone Provider, None Primary Care Provider Farhat Tejada MD Unavailable Encounter Details Date Type Department Care Team (Late st Contact Info) Description 02/06/2021 Lab Requisition [facility] Services [address] [place] [address] Kami Falcon, CONSULTING SERVICES MANAGER, AGENCY OWNER [address] [place] [address] Encounter for pre-employment examination Social [...] 0.06 <8.01 IU/mL 02/08/2021 1:14 PM CDT [facility] TB ANTIGEN 1 0.00 <0.35 IU/mL 02/08/2021 1:14 PM CDT [facility] TB ANTIGEN 2 0.00 <0.35 IU/mL 02/08/2021 1:14 PM CDT [facility] MITOGEN CONTROL >10.00 >0.49 IU/mL 02/09/20 1:14 PM CDT [facility] INTEPRETATION TB NEGATIVE NEGATIVE, NEGATIVE (TB antigen response less than 25% of internal negative control value) 02/08/2021 1:14 PM CDT [facility] Comment:No immune response t o Mycobacterium tuberculosis antigens was noted. M. tuberculosis infection unlikely. Blood Venipuncture / Unknown 02/06/2021 11:20 AM CDT 02/06/2021 12:42 PM CDT Narrative [facility] - 02/08/2021 1:14 PM CDT A POSITIVE [...] APRN, CNP IMMUNOLOGY ORDERABLES F inal Result [facility] [address] [place] [address], documented in this encounter Visit Diagnoses Diagnosis Encounter for pre-employment examination Health examination of defined subpopulation documented in this encounter Additional Health Concerns Infection Onset Date Last Indicated Resolved Time COVID - 19 11/22/2021 11/22/2021 12/02/2021 12:1 6 AM CDT documented as of this encounter Care Teams Banking Manager Relationship Specialty Start Date End Date Provider, None [place] PCP - General 01/21/16 Farhat Murillo MD #[id number] [id number] General Surgery 10/22/16 documented as of this encounter
--- OUTSIDE RECORDS SUMMARY | 2024-07-29 12:59 | XMS_ITS | Continuity of Care Document ---
Author Organization [facility] Address [address] [place] [address] Assessment Encounter Date Assessment Date Assessment LastModified by Organization Details LastModified Time 07/29/2024 07/29/2024 Patient is 35___weeks . Discussed plan. Not available 07/29/2024 13:01:50 Plan of Treatment Reminders Order Date Submit Date Provider Last Modified By Organization Details Last Modified Time Details Appointments OB ROUTINE 2024 11:15A M Fanny Gilmore CNM Not available Not available Not available NST 2024 11:30A M NST SCHEDULE Not available Not available Not available U/S OB BPP 2024 12:30P M ULTRASOUND Not available Not available Not available NST 2024 01:00P M NST SCHEDULE Not available Not available Not available OB ROUTINE 2024 01:30P M Fanny Gilmore CNM Not available Not available Not available U/S OB BPP 2024 01:30P M ULTRASOUND Not available Not available Not available NST 2024 02:00P M NST SCHEDULE Not available Not available Not available OB ROUTINE 2024 02:30P M Fanny Gilmore CNM Not available Not available Not available U/S OB GROWTH 2024 09:30A M ULTRASOUND Not available Not available Not available NST 2024 10:00A M NST SCHEDULE Not available Not available Not available OB ROUTINE 2024 10:30A M Slava SUAREZ MD Not available Not available Not available U/S OB BPP 2024 02:30P M ULTRASOUND Not available Not available Not available NST 2024 03:00P M NST SCHEDULE Not available Not available Not available OB ROUTINE 2024 03:45P M Fanny Gilmore, CNM Not available Not available Not available U/S OB BPP 2024 10:00A M ULTRASOUND Not available Not available Not available NST 2024 10:30A M NST SCHEDULE Not available Not available Not available OB ROUTINE 2024 11:00A M Fanny Gilmore, CNM Not available Not available Not available Lab None recorde d. Referral None recorde d. Procedures None recorde d. Surgeries None recorde d. Imaging None recorde d. Medication Orders Valtrex 500 mg tablet [address] [place], [place] [id number], [address] [place], [place], [id number], 07/29/2024 13:02:13 Patient TargetsNo targets recorded. Patient InstructionsNo instructions recorded. Reason for Referral None Reported. Results Created Date Observation Date Name Description Value Unit Range Abnormal Flag Note LastModifiedBy Organization Detail LastModifiedTime 03/18/20 24 03/18/2024 US, obste tric, follo w-up No observ ation record ed. [email or web address] [facility] [address] [place], [address], 03/18/2024 14:16:25 04/06/20 24 04/06/2024 US, obste tric, follo w-up No observ ation record ed. [email or web address] Not Available 2024 14:46:25 07/05/19 25 07/04/2024 US, obste tric, 2nd or 3rd trime ster No observ ation record ed. [email or web address] [facility] [address], [place], [address], 07/04/2024 18:43:20 07/05/19 25 07/04/2024 US, obste tric, follo w-up No observ ation record ed. [email or web address] [facility] [address], [place], [address], 07/19/2024 08:48:32 07/19/19 25 07/18/2024 US, obste tric, follo w-up No observ ation record ed. [email or web address] [facility] [address], [place], [address], 07/18/2024 17:51:40 07/19/19 25 07/18/2024 US, obste tric, bioph ysica l profi le + non-s tress test No observ ation record ed. [email or web address] [facility] [address], [place], [address], 07/18/2024 17:51:52 07/19/19 25 07/18/2024 US, doppl er, umbil ical arter y veloc imetr y No observ ation record ed. [email or web address] [facility] [address], [place], [address], 07/18/2024 17:52:05 07/19/19 25 07/18/2024 US, obste tric, follo w-up No observ ation record ed. [email or web address] [facility] [address], [place], [address], 07/19/2024 16:53:10 07/26/19 25 07/25/2024 US, obste tric, follo w-up No observ ation record ed. [email or web address] [facility] [address] [place], [address], 07/25/2024 17:58:31 07/26/19 25 07/25/2024 US, obste tric, follo w-up No observ ation record ed. [facility] [address], [place], [address], 07/28/2024 18:01:46 07/26/19 25 07/25/2024 US, obste tric, bioph ysica l profi le + non-s tress test No observ ation record ed. [email or web address] [facility] [address], [place], [address], 07/27/2024 10:40:41 Result Notes None recorded. Problems Name Problem SNOMED Code Status Onset Date Resolution Date Notes Provider Name and Address Organization Details Recorded Time demise from miscarri age 4342175 Active 2017 labor Vida bryant, [facility] 0 10:01:09 Pregnanc y 36643617 Completed 201905/10/2020 Vida bryant, [facility] 4 10:46:28 Pregnanc y 10110593 Active 2023 Vida bryant, [facility] 4 10:46:28 Seizure disorder 215565575 Active reshma berger has m appt Fanny Gilmore CNM [address], [place], [address], [facility] 4 10:58:49 Herpes simplex 67093075 Active valtrex daily increase to bid at 36 weeks tx Valacycl ovir x 7 days ER [place] Dimas's Palsy Danielle Morris manny, [facility] 5 14:55:23 Past pregnanc y history of stillbir th 240264025 Active 19 weeks Fanny Gilmore CNM [address], [place], [address], [facility] 4 10:58:01 Past pregnanc y history of growth restrict ion 382678173 Active Fanny Gilmore CNM [address], [place], [address], [place] [facility] 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 5 16:32:35 Placenta circumva llata 5382178 Active Danielle bryant, [facility] 5 16:32:35 growth restrict ion 38896516 Active Referral faxed to [facility] 07/19[facility] eduled [facility] e - 07/25 1:45PM Level II us/doppl er/bpp/n st schedule weekly BPP/DOPP LER/NST/ OB Danielle bryant, [facility] 5 16:56:04 growth restrict ion 74861114 Active Referral faxed to [facility] 07/19-[facility] eduled [facility] e - 07/25 1:45PM Level II us/doppl er/bpp/n st schedule weekly BPP/DOPP LER/NST/ OB Danielle bryant, [facility] 5 16:56:04 growth restrict ion 86063570 Completed 2019 SS - Weekly BPP/dopp lers and NSTs on Tuesdays until 11/01/19 Jeff Markelgordy bryant, [facility] 1 17:13:41 Herpes simplex 02955338 Active valtrex daily increase to bid at 36 weeks tx Valacycl ovir x 7 days ER [place] Dimas's Palsy Danielle Morris manny, [facility] 5 14:55:23 Herpes simplex 17084652 Completed 2019 Needs treatmen t at 34 weeks per [facility] Jeff bryant, [facility] 1 17:13:41 Seizure disorder 767070186 Active restarte d maikolppra has mfm appt Fanny Gilmore, [facility] [address], [place], [address], [facility] 4 10:58:49 Chlamydi al infectio n 322439473 Completed 201909/01/2019 JOSE 32 WEEKS Leighamarcelo LouisMarkel [facility] 0 16:21:05 Problem Notes None recorded. Procedures Surgical History Date Name Laterality Status Provider Name and Address Organization Details Recorded Time 02/08/2024 Date of Last Pap Smear completed Vida Marino [facility] 02/08/2024 10:44:17 Imaging Results None recorded. Procedure Notes None recorded. Medical Equipment None Reported. Allergies Allergen ID Allergen Name Allergen Category Reaction Reaction Severity Criticality Documentation Date Start Date Code Code System Note Provider Name and Address Organization Details Recorded Time 331 morphine medicatio n Not available Not available Not available 08/26/2019 7052 RxNorm iVda Youngertz [facility], [facility] 0 18:15:58 Medications Name Sig Start Date Stop Date Status Note LastModified by Organization Details LastModified Time azithromyci n 250 mg tablet TAKE 2 TABLETS (500 MG) BY ORAL ROUTE ONCE DAILY FOR 1 DAY THEN 1 TABLET (250 MG) BY ORAL ROUTE ONCE DAILY FOR 4 DAYS 07/29 completed Not Available Not Available Not Available valacyclovi r 1 gram tablet 07/29 completed Not Available Not Available Not Available fluconazole 200 mg tablet 02/07 completed Not Available Not Available Not Available prednisone 20 mg tablet 07/29 completed Not Available Not Available Not Available metronidazo le 500 mg tablet Take 1 tablet twice a day by oral route for 7 days. 05/13 completed Not Available Not Available Not Available Depo-Operational Risk Consultant a 150 mg/mL intramuscul ar suspension Inject 1 mL every 3 months by intramusc ular route. 02/07 completed Not Available Not Available Not Available cephalexin 500 mg capsule 05/13 completed Not Available Not Available Not Available Valtrex 500 mg tablet Take 1 tablet twice a day by oral route. 2024 active Not Available Not Available Not Avai [...] and Address Organization Details Last Updated DateTime 07/29/2024 158.75 cm 26.5 kg/m2 21070.08 g 104 mm[Hg] 68 mm[Hg] Vida Marino [facility] 12:48:37 Social History Question Answer Notes LastModified by Organizat ion Details LastModified Time Tobacco Smoking Status Former Smoker Vida Marino [facility] 02/08/2024 10:46:27 What Is Your Level Of Alcohol Consumption? None Information not available 08/26/2019 If You Are , What Was Your Level Of Alcohol Consumption Prior To ? Occasional [email or web address] Information not available 02/08/2024 Are You Blind Or Do You Have Difficulty Seeing? No [email or web address] Information not available 02/08/2024 What Is Your Level Of Caffeine Consumption? Moderate [email or web address] Information not available 02/08/2024 In The 14 Days Before Symptom Onset, Have You Had Close Contact With A Laboratory-confir med COVID-19 While That Case Was Ill? No [email or web address] Information not available 02/08/2024 In The 14 Days Before Symptom Onset, Have You Had Close Contact With A Person Who Is Under Investigation For COVID-19 While That Person Was Ill? No [email or web address] Information not available 02/08/2024 Have You Been To An Area Known To Be High Risk For COVID-19? No [email or web address] Information not available 02/08/2024 Are You Deaf Or Do You Have Serious Difficulty Hearing? No [email or web address] Information not available 02/08/2024 What Type Of Diet Are You Following? REGULAR [email or web address] Information not available 02/08/2024 Do You Or Have You Ever Used E-cigarettes Or Vape? Former User Of Electronic Cigarettes [email or web address] Information not available 02/08/2024 What Was The Date Of Your Most Recent Tobacco Screening? 05/13/2024 [email or web address] Information not available 05/13/2024 Do You Use Your Seat Belt Or Car Seat Routinely? Yes [email or web address] Information not available 02/08/2024 Do You Have Smoke And Carbon Monoxide Detectors In Your Home? Yes [email or web address] Information not available 02/08/2024 Do You Or Have You Ever Used Smokeless Tobacco? Never Used Smokeless Tobacco [email or web address] Information not available 11/22/2019 How Much Tobacco Do You Smoke? No [email or web address] Information not available 11/22/2019 Smoking Pre- No [email or web address] Information not available 08/26/2019 Do You Feel Stressed (tense, Restless, Nervous, Or Anxious, Or Unable To Sleep At Night)? UL25239-3 [email or web address] Information not available 02/08/2024 Do You Use Any Illicit Or Recreational Drugs? No [email or web address] Information not available 02/08/2024 Do You Use Sunscreen Routinely? Yes [email or web address] Information not available 02/08/2024 Do You Or Have You Ever Used Any Other Forms Of Tobacco Or Nicotine? Yes [email or web address] Information not available 02/08/2024 Sex: Unknown Functional Status Question Answer Note LastModified by Organizat ion Details LastModified Time Do you have difficulty walking or climbing stairs? No [email or web address] Information not available 02/08/2024 Are you able to walk? YESWOREST [email or web address] Information not available 02/08/2024 Are you able to care for yourself? Yes [email or web address] Information not available 02/08/2024 Do you have difficulty dressing or bathing? No [email or web address] Information not available 02/08/2024 What is your exercise level? Occasional [email or web address] Information not available 08/26/2019 Mental Status None recorded. Family History Relationship Description Onset Age of this Age Resolved Age Notes LastModified by Organization Details LastModified Time Mother Malignant tumor of breast [email or web address] Not available 08/25 18:21:21 Mother Hypertensive disorder [email or web address] Not available 08/25 18:21:32 Notes:Mother: Cancer, breast , Hypertension Medical History Condition Response Allergies (Food, seasonal, environmental ) Y Other Y Blood Transfusion N Drug/Latex Allergies/Reactions Y Breast Cancer N Dermatologic Disorders Y Lung Disease N Defects or Inherited Disease N Breast Problem Y Gestational Diabetes N Hematologic disorders N Anesthesia Complications N History of STI Y Deep Vein Thrombosis N Polycystic ovary syndrome N Anxiety Disorder Y Autoimmune disease N Arthritis N Infertility N Polyps N Acid Reflux (GERD) N History of abnormal pap N Cancer N Stroke N Varicosities N Neurologic/Epilepsy Y Endometriosis N High Cholesterol N Headaches N Fibromyalgia N Kidney Disease N Heart Problems N Kidney or Bladder Problems N Thyroid Problems N GI Problems N Eating Disorder [...] SNOMED-CT Code Diagnosis ICD10 Code Diagnosis Note [id number] [facility] [address] [address] 07/04/2024 17:39:34 07/04/2024 18:44:12 screening for malformation 647239651 Z36.3 Z3A.31 [id number] [facility] [address] [address] 07/18/2024 17:00:09 07/18/2024 17:48:39 Small for gestational age fetus 185467468 O36.5930 O43.113 O09.33 Z3A.33 [id number] Kevin Suarez MD [facility] [address] [address] 07/18/2024 17:18:09 07/19/2024 08:17:22 Routine care 360653873 Z34.83 [id number] [facility] [address],[place] [address] 07/29/2024 12:33:42 07/29/2024 13:13:39 Gestation period, 35 weeks 06201909 Z3A.35 Herpes simplex 08426639 B00.9 Health Concerns Section Related Observation LastModified by Organization Detai ls LastModified Time None Recorded Concern Status LastModified by Organization Details LastModified Time None Recorded Payers Encounter Date Sequence Insurance Name Policy Number Policy Delong Covered Member ID Delong Member ID Guarantor Name 07/29/2024 1 [facility] (MEDICAID HMO) [id number] Sayra Hsu [id number] Sayra Hsu OBGyn Episode Ob Episode Information Episode Created Date Number of Fetuses Patient Bloodtype Patient rh Status Prepregnancy Weight lbs Domestic Partner Domestic Partner Phone Father Name Body Design Checker Status 02/24/20 24 1 B Positive 124 OPEN Fetus Data First Name Last Name Admitted to NICU Weight (g) Sex Living Outcome Pediatric Complications Fetus ID Race Codes Race Delivery Type [id number] Problems Problem Notes 04/06/24 1pm u/s and ovNo 1HR GTT completed - Start checking bs QID Problem Name Start Date End Date Resolution Snomed Code Not e Past history of growth restriction 146071332 Past history of stillbirth 677824369 19 weeks Seizure disorder 167706052 res tarharika berger has m appt Herpes simplex 83584127 valtr ex daily increase to bid at 36 weekstx Valacyclovir x 7 days ER [place] Dimas's Palsy Placenta circumvallata 6851921 growth restriction 59726877 Referral faxed to [facility] 07/19-Scheduled [facility] - 07/25 1:45PM Level II us/doppler/bpp/nstsc hedule [...] Latest Days Gestation 0 09/01/19 25 0 Pre- Flowsheet Flowsheet Date 02/24/2024 Joya Score Blood Edema Fundus Height Fundus Units Glucose Ketones Leukocytes Nitrite Labor Signs Protein Cervic Dilation Cervic Effacement Cervic Station neg none none trace Type Weight in lbs Pre/Post Dialysis Refused Weight 126.325911725338 BP Diastolic BP Location Tested BP Systolic [...] Type Weight in lbs Pre/Post Dialysis Refused 139.239261457456 BP Diastolic BP Location Tested BP Systolic BP Type 61 93 Fetus Heart Rate Present Fetus Movement A Yes Comments Patient states that is haivn g discharge, nausea and vomiting. unable to get to appt due to her boss, note given [facility]. will order us and gct [...] Type Weight in lbs Pre/Post Dialysis Refused 147.570506351213 BP Diastolic BP Location Tested BP Systolic BP Type 67 L arm 110 sitting Fetus Heart Rate Present A 145 Fetus Movement A Yes Comments no complaints, no problems, routine care, no contractions, no vaginal bleeding, no loss of fluid, no cramping growth restriction, to see M soon as possible. Patient has a history of noncompliance. She was strongly encouraged to go to [facility]. She understands that there is a risk of stillbirth here. Flowsheet Date 07/29/2024 Joya Score Blood Edema Fundus Height Fundus Units Glucose Ketones Leukocytes Nitrite Labor Signs Protein Cervic Dilation Cervic Effacement Cervic Station neg none 2cm 60% -2 Type Weight in lbs Pre/Post Dialysis Refused Weight 147.146344929320 BP Diastolic BP Location Tested BP Systolic BP Type 68 104 Fetus Heart Rate Present Fetus Movement A Yes Comments Patient is having contractio ns, nausea and vomiting. was seen in [facility] thursday, no one checked her cervix feeling lots of contractions, schedule testing, plan to start maternity leave precautions and education reviewed. start hsv supression Flowsheet Date 07/29/2024 Joya Score Blood Edema Fundus Height Fundus [...]
--- OUTSIDE RECORDS SUMMARY | 2024-07-29 12:59 | XMS_ITS | Encounter Summary ---
Author Organization [facility] Address [address] [place] [address] Phone Care Team Providers Care Facilities Maintenance Technician Name Role Phone Unknown, Notinfile Primary Care Provider Unavail able No, Physician Primary Care Provider [phone] Abelino Stover MD Primary Care Provider No, Physician Primary Care Provider [phone] Mckenna Rios DO Primary Care Provider Gabriel Cano MD Unavailable Abelino Stover MD Primary Care Provider Mckenna Rios DO Unavailable [phone] Encounter Details Date Type Department Care Team (Late st Contact Info) Description 04/20/2019 Orders Only [facility] [address] [place] [address] Scanning, Provider Social History Tobacco Use Types Packs/Day Years Used Date Smoking Tobacco: Never Smokeless Tobacco: Never Alcohol Use Standard Drinks/Week Comments Not Currently 0 (1 standard drink = 0.6 oz pur e alcohol) Comments No Sex and Gender Information Value Date Recorded Sex Assigned at Not on file Legal Sex 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 . 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 08/24/2022 10/03/2022 11/22/2022 3:05 AM C DT documented as of this encounter Care Teams Facilities Maintenance Technician Relationship Specialty Start Date End Date Unknown, Notinfile PCP - General 12/27/18 04/23/19 No, Physician PCP - General 04/24/19 01/14/21 Abelino Stover MD PCP - General Family Medicine 01/15/21 03/28/21 No, Physician PCP - General 03/29/21 05/13/21 Mckenna Rios DO [address] [place] [address] PCP - General Obstetrics and Gynecology 05/14/21 06/16/21 Abelino Stover MD PCP - General Family Medicine 11/19/21 Gabriel Cano MD [address] [place] [address] Tool Sharpener Obstetrics and Gynecology 06/29/21 Mckenna Rios DO [address] [place] [address] Consulting Physician Obstetrics and Gynecology 11/04/22 documented as of this encounter
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
--- OUTSIDE RECORDS SUMMARY | 2024-07-29 12:59 | XMS_ITS | Data Portability ---
Author Organization [facility] Address [address] [place] [address] Assessment Encounter Date Assessment Date Assessment LastModified by Organization Details LastModified Time 07/18/2024 07/18/2024 Patient is ___weeks . Discussed plan. [email or web address] Not available 07/18/2024 17:44:51 07/29/2024 07/29/2024 Patient is 35___weeks . Discussed [...] available OB ROUTINE 2024 03:45P M Fanny Cliftonstephanie CNM Not available Not available Not available U/S OB BPP 2024 10:00A M ULTRASOUND Not available Not available Not available NST 2024 10:30A M NST SCHEDULE Not available Not available Not available OB ROUTINE 2024 11:00A M Fanny Cliftongle, CNM Not available Not available Not available Lab None recorde d. Referral None recorde d. Procedures None recorde d. Surgeries None recorde d. Imaging US, obstetr ic, follow- up 2024 [address], [address], [place], [address], 07/18/2024 21:27:25 US, obstetr ic, biophys ical profile + non-str ess test 2024 [address], [address], [place], [address], 07/18/2024 21:27:25 US, doppler , umbilic al artery velocim etry 2024 [address], [address], [place], [address], 07/18/2024 21:27:25 US, obstetr ic, 2nd or 3rd trimest er 2024 [address], [address], [place], [address], 07/04/2024 22:39:45 Medication Orders Valtrex 500 mg tablet [address] [id number], [address] [place], [place], [id number], 07/29/2024 13:02:13 Patient TargetsNo targets recorded. Patient InstructionsNo instructions recorded. Reason for Referral None Reported. Results Created Date Observation Date Name Description Value Unit Range Abnormal Flag Note LastModifiedBy Organization Detail LastModifiedTime 07/05/1907/04/2024 US, obste tric, 2nd or 3rd trime ster No observ ation record ed. [email or web address] [place] [address], [place], [address], 07/04/2024 18:43:20 07/05/19 25 07/04/2024 US, obste tric, follo w-up No observ ation record ed. [email or web address] [address], [place], [address], 07/19/2024 08:48:32 07/19/19 25 07/18/2024 US, obste tric, follo w-up No observ ation record ed. [email or web address] [place] [address], [place], [address], 07/18/2024 17:51:40 07/19/19 25 07/18/2024 US, obste tric, bioph ysica l profi le + non-s tress test No observ ation record ed. [email or web address] [place] [address], [place], [address], 07/18/2024 17:51:52 07/19/19 25 07/18/2024 US, doppl er, umbil ical arter y veloc imetr y No observ ation record ed. [email or web address] [place] [address], [place], [address], 07/18/2024 17:52:05 07/19/19 25 07/18/2024 US, obste tric, follo w-up No observ ation record ed. [email or web address] [address], [place], [address], 07/19/2024 16:53:10 07/26/19 25 07/25/2024 US, obste tric, follo w-up No observ ation record ed. [facility] [address] [place], [address], 07/25/2024 17:58:31 07/26/19 25 07/25/2024 US, obste tric, follo w-up No observ ation record ed. [facility] [address] [facility], [place], [address], 07/28/2024 18:01:46 07/26/19 25 07/25/2024 US, obste tric, bioph ysica l profi le + non-s tress test No observ ation record ed. [facility] [address] [facility], [place], [address], 07/27/2024 10:40:41 Result Notes None recorded. Problems Name Problem SNOMED Code Status Onset Date Resolution Date Notes Provider Name and Address Organization Details Recorded Time demise from miscarri age 9789483 Active 2017 labor Vida bryant [facility] 0 10:01:09 Pregnanc y 55005572 Completed 201905/10/2020 Vida bryant [facility] 4 10:46:28 Pregnanc y 49591713 Active 2023 Vida bryant [facility] 4 10:46:28 Seizure disorder 504687285 Active reshma berger has mfm appt Fanny Gilmore CNM [address] [place] [place], [address], [facility] 4 10:58:49 Herpes simplex 22273698 Active valtrex daily increase to bid at 36 weeks tx Valacycl ovir x 7 days ER [place] Dimas's Palsy Danielle Arturo bryant, [facility] 5 14:55:23 Past pregnanc y history of stillbir th 675699400 Active 19 weeks Fanny Gilmore, CHANTELLE [address], [place], [address], [facility] 4 10:58:01 Past pregnanc y history of growth restrict ion 080299098 Active Fanny Gilmore CNM [address], [place], [address], [facility] 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 5 16:32:35 Placenta circumva llata 0208249 Active Danielle Morris manny, [facility] 5 16:32:35 growth restrict ion 45753993 Active Referral faxed to [facility] 07/19-[facility] eduled [facility] Tre e - 07/25 1:45PM Level II us/doppl er/bpp/n st schedule weekly BPP/DOPP LER/NST/ OB Danielle Arturo bryant, [facility] 5 16:56:04 growth restrict ion 28581419 Active Referral faxed to [facility] 07/19-[facility] 1:45[facility] Level II us/doppl er/bpp/n st schedule weekly BPP/DOPP LER/NST/ OB Danielle bryant, [facility] 5 16:56:04 growth restrict ion 74621151 Completed 2019 [facility] - Weekly BPP/dopp lers and NSTs on Tuesdays until 11/01/19 Jeff [facility] 1 17:13:41 Herpes simplex 03098780 Active valtrex daily increase to bid at 36 weeks tx Valacycl ovir x 7 days ER [place] Dimas's Palsy Danielle Morris [facility], [facility] 5 14:55:23 Herpes simplex 08242780 Completed 2019 Needs treatmen t at 34 weeks per MFM Jeff [facility] 1 17:13:41 Seizure disorder 427785084 Active restarte d joycera has mfm appt Fanny Gilmore, TEOFILO [address], [place], [address], [facility] 4 10:58:49 Chlamydi al infectio n 903957660 Completed 201909/01/2019 [facility] 0 16:21:05 Problem Notes None recorded. Procedures Surgical History Date Name Laterality Status Provider Name and Address Organization Details Recorded Time 02/08/2024 Date of Last Pap Smear completed Vida Marino [facility] 02/08/2024 10:44:17 Imaging Results Imaging Date Name Status LastModified by Organiz ation Details LastModified Time 07/04/2024 US, obstetric, 2nd or 3rd trimester completed [email or web address] [place] [address], [place], [address], 07/04/2024 18:43:20 07/04/2024 US, obstetric, follow-up completed [email or web address] [address], [place], [address], 07/19/2024 08:48:32 07/18/2024 US, obstetric, follow-up completed [email or web address] [place] [address], [place], [address], 07/18/2024 17:51:40 07/18/2024 US, obstetric, biophysical profile + non-stress test completed [email or web address] [place] [address], [place], [address], 07/18/2024 17:51:52 07/18/2024 US, doppler, umbilical artery velocimetry completed [email or web address] [place] [address], [place], [address], 07/18/2024 17:52:05 07/18/2024 US, obstetric, follow-up completed [email or web address] [address], [place], [address], 07/19/2024 16:53:10 07/25/2024 US, obstetric, follow-up completed [email or web address] [facility] [address] [place], [address], 07/25/2024 17:58:31 07/25/2024 US, obstetric, follow-up completed [email or web address] [facility] [address] [place], [address], 07/28/2024 18:01:46 07/25/2024 US, obstetric, biophysical profile + non-stress test completed [email or web address] [facility] [address] [place], [address], 07/27/2024 10:40:41 Procedure Notes None recorded. Medical Equipment None Reported. Allergies Allergen ID Allergen Name Allergen Category Reaction Reaction Severity Criticality Documentation Date Start Date Code Code System Note Provider Name and Address Organization Details Recorded Time 331 morphine medicatio n Not available Not available Not available 08/26/2019 7052 RxNorm Vida Marino [facility] 0 18:15:58 Medications Name Sig Start [...] completed Not Available Not Available Not Available Depo-Food Beverage Attendant a 150 mg/mL intramuscul ar suspension Inject [...] Not Avai lable Vitals Date Recorded Body weight Systolic blood pressure Diastolic blood pressure Provider Name and Address Organization Details Last Updated DateTime 07/18/2024 62535.0783 9 g 110 mm[Hg] 67 mm[Hg] Elizabeth Dyer [facility] 07/18/2024 17:45:23 Date Recorded Body height Body mass index (BMI) Body weight Systolic blood pressure Diastolic blood pressure Provider Name and Address Organization Details Last Updated DateTime 07/29/2024 158.75 cm 26.5 kg/m2 47775.08 g 104 mm[Hg] 68 mm[Hg] Vida Marino [facility] 12:48:37 Social History Question Answer Notes LastModified by Organizat ion Details LastModified Time Tobacco Smoking Status Former Smoker Vida Marino [facility], [facility] 02/08/2024 10:46:27 What Is Your Level Of Alcohol Consumption? None [email or web address] Information not available 08/26/2019 If You Are , What Was Your Level Of Alcohol Consumption Prior To ? Occasional Information not available 02/08/2024 Are You Blind Or Do You Have Difficulty Seeing? No Information not available 02/08/2024 What Is Your Level Of Caffeine Consumption? Moderate [email or web address] Information not available 02/08/2024 In The 14 Days Before Symptom Onset, Have You Had Close Contact With A Laboratory-confir med COVID-19 While That Case Was Ill? No [email or web address] Information not available 02/08/2024 In The 14 Days Before Symptom Onset, Have You Had Close Contact With A Person Who Is Under Investigation For COVID-19 While That Person Was Ill? No [email or web address] Information not available 02/08/2024 Have You Been To An Area Known To Be High Risk For COVID-19? No [email or web address] Information not available 02/08/2024 Are You Deaf Or Do You Have Serious Difficulty Hearing? No [email or web address] Information not available 02/08/2024 What Type Of Diet Are You Following? REGULAR [email or web address] Information not available 02/08/2024 Do You Or Have You Ever Used E-cigarettes Or Vape? Former User Of Electronic Cigarettes [email or web address] Information not available 02/08/2024 What Was The Date Of Your Most Recent Tobacco Screening? 05/13/2024 [email or web address] Information not available 05/13/2024 Do You Use Your Seat Belt Or Car Seat Routinely? Yes Information not available 02/08/2024 Do You Have Smoke And Carbon Monoxide Detectors In Your Home? Yes [email or web address] Information not available 02/08/2024 Do You Or Have You Ever Used Smokeless Tobacco? Never Used Smokeless Tobacco [email or web address] Information not available 11/22/2019 How Much Tobacco Do You Smoke? No [email or web address] Information not available 11/22/2019 Smoking Pre- No [email or web address] Information not available 08/26/2019 Do You Feel Stressed (tense, Restless, Nervous, Or Anxious, Or Unable To Sleep At Night)? [id number] [email or web address] Information not available 02/08/2024 Do You Use Any Illicit Or Recreational Drugs? No [email or web address] Information not available 02/08/2024 Do You Use Sunscreen Routinely? Yes [email or web address] Information not available 02/08/2024 Do You Or Have You Ever Used Any Other Forms Of Tobacco Or Nicotine? Yes [email or web address] Information not available 02/08/2024 Sex: Unknown Functional Status Question Answer Note LastModified by Organizat ion Details LastModified Time Do you have difficulty walking or climbing stairs? No [email or web address] Information not available 02/08/2024 Are you able to walk? [email or web address] Information not available 02/08/2024 Are you able to care for yourself? Yes [email or web address] Information not available 02/08/2024 Do you have difficulty dressing or bathing? No [email or web address] Information not available 02/08/2024 What is your exercise level? Occasional Information not available 08/26/2019 Mental Status None recorded. Family History Relationship Description Onset Age of this Age Resolved Age Notes LastModified by Organization Details LastModified Time Mother Malignant tumor of breast [email or web address] Not available 08/25 18:21:21 Mother Hypertensive disorder [email or web address] Not available 08/25 18:21:32 Notes:Mother: Cancer, breast , Hypertension Medical History Condition Response Allergies (Food, seasonal, environmental ) Y Other Y Drug/Latex Allergies/Reactions Y Blood Transfusion N Breast Cancer N Dermatologic Disorders Y Lung Disease N Defects or Inherited Disease N Breast Problem Y Gestational Diabetes N Hematologic disorders N Anesthesia Complications N History of STI Y Deep Vein Thrombosis N Polycystic ovary syndrome N Anxiety Disorder Y Autoimmune disease N Arthritis N Polyps N Infertility N Acid Reflux (GERD) N History of abnormal pap N Cancer N Varicosities N Stroke N Neurologic/Epilepsy Y Endometriosis N High Cholesterol N Fibromyalgia N Headaches N Kidney Disease N Heart Problems N [...] Diagnosis ICD10 Code Diagnosis Note [address] [place] [address],[place] [address] 08/11/2019 11:38:34 08/11/2019 16:27:14 Normal 57170216 Z34.93 1953 [facility] [facility] [address],[place] [address] 08/26/2019 16:39:32 08/26/2019 17:16:10 Routine care 138964997 Z34.03 [address] [facility] [address],[place] [address] 08/30/2019 14:22:12 08/31/2019 09:13:38 Normal 49664488 Z34.93 3021 Kevin Suarez MD [place] [address],[place] [address] 09/05/2019 16:49:00 09/06/2019 09:48:15 Routine care 268733605 Z34.83 3811 Kevin Suarez MD [place] [address],[place] [address] 09/12/2019 13:59:45 09/12/2019 14:41:35 Routine care 804431919 Z34.83 6219 Fanny Gilmore [facility] [address],[place] [address] 10/04/2019 11:44:05 10/26/2019 09:36:53 Routine care 901801182 Z34.03 7150 Fanny Gilmore [facility] [address],[place] [address] 10/11/2019 13:02:46 10/15/2019 19:45:28 Routine care 799594810 Z34.[address] [place] [address] [place] [address] 10/18/2019 14:58:56 10/18/2019 15:40:02 Normal 48245838 Z34.93 79911 Fanny Gilmore [facility] [address],[place] [address] 11/22/2019 12:58:04 11/22/2019 14:01:33 Contraception care management 417246326 Z30.9 [id number] [facility] [address] [place] [address] 01/18/2024 16:47:45 01/18/2024 17:40:47 with uncertain dates 394889824 Z34.91 N91.2 Z32.01 Dating u/s [id number] [facility] [address],[place] [address] 02/08/2024 09:50:47 02/08/2024 10:43:23 test positive 806463877 Z32.01 995454 Fanny Gilmore [facility] [address],[place] [address] 02/08/2024 09:51:06 02/08/2024 11:01:06 Amenorrhea 95244757 N91.2 plan new ob and first looklabs todaypap collectedr estart seizure meds dailyasthm a inhaler prnclonaze elly prn anxietywil l need consult mfSV only on blood- mfm did start suppressio n last ar 34 weeks Gynecologi c examination 31327055 Z11.3 screening 2437 37308 Z36.0 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 92544104 Z31.430 Exposure to lead 1280396 247 8093667 Z77.011 Seizure disorder 3362482 02 G40.909 restart seizure medication , seizure precaution sMFM to be scheduled [id number] Fanny Gilmore [facility] [address],[place] [address] 02/24/2024 09:59:03 02/24/2024 11:05:10 Gestation period, 12 weeks 05479136 Z3A.12 mfm consult Routine an tenatal care 456534474 Z34.03 Bacterial vaginosis 4197 32912 N76.0 chart picker flagyl at pharmacy [id number] Fanny Gilmore [facility] [address],[place] [address] 05/13/2024 13:28:29 05/13/2024 14:08:51 Gestation period, 24 weeks 431034816 Z3A.24 continue vitamin Upper resp iratory infection 10069454 J06.9 595231 [facility] [address],[place] [address] 07/04/2024 17:39:34 07/04/2024 18:44:12 screening for malformation 367661096 Z36.3 Z3A.31 [id number] [facility] [address],[place] [address] 07/18/2024 17:00:09 07/18/2024 17:48:39 Small for gestational age fetus 103444459 O36.5930 O43.113 O09.33 Z3A.33 614492 Kevin Suarez MD [place] [address],[place] [address] 07/18/2024 17:18:09 07/19/2024 08:17:22 Routine care 891252101 Z34.83 622121 Fanny Gilmore CNM [place] [address] [address] 07/29/2024 12:33:42 07/29/2024 13:13:39 Gestation period, 35 weeks 16136359 Z3A.35 Herpes simplex 02107829 B00.9 Health Concerns Section Related Observation LastModified by Organization Detai ls LastModified Time None Recorded Concern Status LastModified by Organization Details LastModified Time None Recorded Advance Directives Directive None Recorded Payers Encounter Date Sequence Insurance Name Policy Number Policy Delong Covered Member ID Delong Member ID Guarantor Name 07/04/2024 1 [facility] (MEDICA[employer] H[employer]) [id number] Sayra Hsu [id number] Sayra Hsu 07/18/2024 1 [facility] ([employer] H[employer]) [id number] Sayra Hsu [id number] Sayra Hsu 07/18/2024 1 [facility] ([employer]ICA[employer] HMO) [id number] Sayra Hsu [id number] Sayra [facility] 07/29/2024 1 [facility] (MEDICAID HMO) [id number] Sayra Hsu [id number] Sayra Hsu OBGyn Episode Ob Episode Information Episode Created Date Number of Fetuses Patient Bloodtype Patient rh Status Prepregnancy Weight lbs Domestic Partner Domestic Partner Phone Father Name Lift Driver Status 08/11/19 20 1 B Positive 122 CLOSED Fetus Data First Name Last Name Admitted to NICU Weight (g) Sex Living Outcome Pediatric Complications Fetus ID Race Codes Race Delivery Type 2749.90 15 M true Full Term growth restriction 186 Vaginal Delivery Problems Problem Notes Problem Name Start Date End Date Resolution Snomed Code Not e growth restriction 08/22/2019 20324031 [facility] - Weekly BPP/dopplers and NSTs on Tuesdays until 11/01/19 Herpes simplex 08/22/2019 57827180 Need s treatment at 34 weeks per [...] Gestation 0 [email or web address] 09/12/2019 11/01/19 20 0 Pre-nelly Flowsheet Flowsheet Date 08/11/2019 Joya Score Blood [...] Weight in lbs Pre/Post Dialysis Refused Weight 140.056561628720 BP Diastolic BP Location Tested BP Systolic BP Type 74 R arm 113 sitting Fetus Heart Rate Present A 135 Fetus Movement A Yes Comments GCT today. She is supposed t o have weekly BPP/dopplers per [facility] and is scheduled w/ [facility] in [place]. Expecting baby boy wants circumcision and plans to breastfeed. Flowsheet Date 08/26/2019 Joya Score Blood Edema Fundus Height Fundus Units Glucose Ketones Leukocytes Nitrite Labor Signs Protein Cervic Dilation Cervic Effacement Cervic Station neg none trace Type Weight in lbs Pre/Post Dialysis Refused Weight 144.628466574934 BP Diastolic BP Location Tested BP Systolic [...] Weight in lbs Pre/Post Dialysis Refused Weight 146.112081657758 BP Diastolic BP Location Tested BP Systolic BP Type 64 105 Fetus Heart Rate Present A 135 Fetus Movement A Yes Comments Glucose negative She has occ asional ctx usually 2-3 per hour at most. No bleeding. c/o discharge, took meds for BV about 2 weeks ago. Check Affirm today. Declines STD testing. Cervix tight //-3/soft/posterior. I advised rest/fluids and reviewed PTL precautions in detail. She sees MFM weekly Flowsheet Date 05/20/2019 Joya Score Blood Edema Fundus Height Fundus Units Glucose Ketones Leukocytes Nitrite Labor Signs Protein Cervic Dilation Cervic Effacement Cervic Station 1+ trace Type Weight in lbs Pre/Post Dialysis Refused Weight 122.966818363432 BP Diastolic BP Location Tested BP Systolic [...] She is going to discuss that with [facility] Flowsheet Date 06/17/2019 Joya Score Blood Edema Fundus Height Fundus Units Glucose Ketones Leukocytes Nitrite Labor Signs Protein Cervic Dilation Cervic Effacement Cervic Station Type Weight in lbs Pre/Post Dialysis Refused Weight 122.682623224418 BP Diastolic BP Location Tested BP Systolic BP Type Fetus Heart Rate Present Fetus Movement A No Comments Flowsheet Date 07/14/2019 Joya Score Blood Edema Fundus Height Fundus Units Glucose Ketones Leukocytes Nitrite Labor Signs Protein Cervic Dilation Cervic Effacement Cervic Station none 24 1+ Type Weight in lbs Pre/Post Dialysis Refused Weight 140.979504889138 BP Diastolic BP Location Tested BP Systolic [...] Weight in lbs Pre/Post Dialysis Refused Weight 147.756936454485 BP Diastolic BP Location Tested BP Systolic [...] Weight in lbs Pre/Post Dialysis Refused Weight 147.239603081464 BP Diastolic BP Location Tested BP Systolic BP Type 69 107 Fetus Heart Rate Present A 145 Fetus Movement A Yes Comments Flowsheet Date 10/04/2019 Joya Score Blood Edema Fundus Height Fundus Units Glucose Ketones Leukocytes Nitrite Labor Signs Protein Cervic Dilation Cervic Effacement Cervic Station 28 2cm 80% Type Weight in lbs Pre/Post Dialysis Refused Weight 149.458864628402 BP Diastolic BP Location Tested BP Systolic [...] Weight in lbs Pre/Post Dialysis Refused Weight 151.837702873254 BP Diastolic BP Location Tested BP Systolic [...] Weight in lbs Pre/Post Dialysis Refused Weight 148.427961329615 BP Diastolic BP Location Tested BP Systolic BP Type 72 R arm 106 sitting Fetus Heart Rate Present A 130 Fetus Movement A Yes Comments PT. WILL LEAVE URINE SAMPLE AFTER APPT. BC, RMA Cervix /-2. Wants 39 week induction and Fanny Deirdre to deliver so schedule next week Flowsheet Date 11/22/2019 Joya Score Blood Edema Fundus Height Fundus Units Glucose Ketones Leukocytes Nitrite Labor Signs Protein Cervic Dilation Cervic Effacement Cervic Station Type Weight in lbs Pre/Post Dialysis Refused Weight 127.985138620913 BP Diastolic BP Location Tested BP Systolic [...] At Estimated Date of Delivery false Thalassemia (Arabic, Welsh, Mediterranean, Or Background): MCV < 80 false Neural Tube Defect (Meningom yelocele, Spina Bifida, Or Anencephaly) false Congenital Heart Defect false Down Syndrome false Markus-Sachs (eg, Cheondoism, Cajun, Azerbaijani-Commodore) f alse Piedad Disease false Sickle Cell Disease Or Trait () false Hemophilia Or Other Blood Disorders false Muscular Dystrophy false Cystic Fibrosis false [place]'s Chorea false Intellectual Disability/Autism false If Yes, [...] Complications Tubal Sterilization Discharge Date Comments 0 [facility] idural 38.6 false Discharge Information Feeding Method Contraceptive Method Maternal HG B and HCT Levels Ob Episode Information Episode Created Date Number of Fetuses Patient Bloodtype Patient rh Status Prepregnancy Weight lbs Domestic Partner Domestic Partner Phone Father Name Lift Driver Status 08/26/19 20 1 CLOSED Fetus Data [...] Domestic Partner Domestic Partner Phone Father Name Lift Driver Status 11/08/19 20 1 DELETED Satnam Calculation [...] Domestic Partner Domestic Partner Phone Father Name Lift Driver Status 02/08/20 24 1 CLOSED Fetus Data First Name Last Name Admitted to NICU Weight (g) Sex Living Outcome Pediatric Complications Fetus ID Race Codes Race Delivery Type , Spontane ous [id number] Satnam Calculation Initial Satnam Date Initial Exam [...] Domestic Partner Domestic Partner Phone Father Name Lift Driver Status 02/24/20 24 1 B Positive 124 OPEN Fetus Data First Name Last Name Admitted to NICU Weight (g) Sex Living Outcome Pediatric Complications Fetus ID Race Codes Race Delivery Type 16812 Problems Problem Notes 04/06/24 1pm u/s and ovNo 1HR GTT completed - Start checking bs QID Problem Name Start Date End Date Resolution Snomed Code Not e Past history of growth restriction [id number] Past history of stillbirth 403087830 19 weeks Seizure disorder [id number] res tarted celine has mfm appt Herpes simplex [id number] valtr ex daily increase to bid at 36 weekstx Valacyclovir x 7 days ER [place] Dimas's Palsy Placenta circumvallata [id number] growth restriction [id number] Referral faxed to [facility] 07/19-Scheduled [facility] - 07/25 1:45PM Level II us/doppler/bpp/nstsc hedule weekly BPP/DOPPLER/NST/OB Satnam Calculation Initial Satnam Date Initial Exam Date Initial Exam Provider Initial Ultrasound Date Last Menstrual Period Date Ultra Sound Weeks Gestation 08/31/2024 02/08/2024 Fanny Deirdre 01/18/2024 7 Eighteen To Twenty Week Satnam [...] Weight in lbs Pre/Post Dialysis Refused Weight 126.671819162266 BP Diastolic BP Location Tested BP Systolic [...] Type Weight in lbs Pre/Post Dialysis Refused 139.881373968661 BP Diastolic BP Location Tested BP Systolic BP Type 61 93 Fetus Heart Rate Present Fetus Movement A Yes Comments Patient states that is haivn g discharge, nausea and vomiting. unable to get to appt due to her boss, note given encouraged mfm visit. will order us and gct here. [...] Type Weight in lbs Pre/Post Dialysis Refused 147.896833010399 BP Diastolic BP Location Tested BP Systolic BP Type 67 L arm 110 sitting Fetus Heart Rate Present A 145 Fetus Movement A Yes Comments no complaints, no problems, routine care, no contractions, no vaginal bleeding, no loss of fluid, no cramping growth restriction, to see MFM soon as possible. Patient has a history of noncompliance. She was strongly encouraged to go to M. She understands that there is a risk of stillbirth here. Flowsheet Date 07/29/2024 Joya Score Blood Edema Fundus Height Fundus Units Glucose Ketones Leukocytes Nitrite Labor Signs Protein Cervic Dilation Cervic Effacement Cervic Station neg none 2cm 60% -2 Type Weight in lbs Pre/Post Dialysis Refused Weight 147.013265383043 BP Diastolic BP Location Tested BP Systolic [...] Domestic Partner Domestic Partner Phone Father Name Lift Driver Status 02/08/20 24 1 CLOSED Fetus Data First Name Last Name Admitted to NICU Weight (g) Sex Living Outcome Pediatric Complications Fetus ID Race Codes Race Delivery Type , Spontane ous [id number] Satnam Calculation Initial Satnam Date Initial Exam [...]
--- OUTSIDE RECORDS SUMMARY | 2024-07-29 12:59 | XMS_ITS | Referral Summary ---
Author Organization [facility] Address [address] [place] [address] Care Team Providers Care Website Designer Name Role Phone Gabriel Cano MD Unavailable [phone] Abelino Stover MD Primary Care Provider Mckenna Rios DO Unavailable [phone] Encounters Date Type Department Care Team Description 07/23/2024 Telephone [facility] [address] 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 Discharge Disposition: Discharge to home or self care 06/21/2024 10:03 PM [employer] - 06/21/2024 11:59 PM [employer] Hospital Encounter [facility] Emergency, Room R Discharge Disposition: Discharge to home or self care 06/21/2024 8:25 PM [employer] - 06/21/2024 10:01 PM [employer] Emergency [facility] Emergency Department [address] [place] [address] Daysi Metz MD Seizure-like activity (HCC) (Primary Dx); Abdominal pain Discharge Disposition: Discharge to a short term hospital for IP 06/10/2024 Telephone [facility] Accountable Care Organization [address] [place] [address] Parul Burris Unsuccessful Phone Call 1 (Scheduling [facility] Annual Exam) 05/17/2024 Telephone [facility] [address] (Third Floor) [place] [address] Aleshia Harkins, RN COVID-19 EVALUATION 05/05/2024 Documentation [facility] Warm Hand Off Program [address] [place], [place] [phone] Pao Ramos 05/05/2024 Orders Only [facility] [address] (Third Floor) [place] [address] Nelson Marshall MD History of exposure to blood or body fluid (Primary Dx) 05/02/2024 Documentation [facility] Warm Hand Off Program [address] [place], [place] [phone] Pao Ramos 05/02/2024 Documentation [facility] Warm Hand Off Program [address] [place], [place] [phone] Pao Ramos from Last 3 Months Allergies [...] miscarriage 11/01/2017 Overview (08/12/2023): labor Seizure disorder ([facility]/HCC) 10/19/2017 Assessment & Plan (11/28/2021 2:07 PM [...] done, and thus equally as impossible to child guidance counselor her regarding if this might affect [...] be conservative. [x] Co-management vs. [] Full [facility] Care Referring Provider: Wesly Shipley [] [...] [] MOC: [] Method of feeding: [] Solar Energy Specialist: [] Car seat Discussed [] PP [...] drink = 0.6 oz pur e alcohol) [facility] [employer] Answer Date Recorded In the past 12 months has e N42, gas, oil, or water [employer] threatened to shut off services in your [...] How often do you attend chur or buddhist services? Never 05/06/2024 Do you belong to any clubs o r organizations such as restorationist groups, unions, fraternal or athletic groups, or [...] Date Recorded PHQ-2 Total Score 0 05/06/2024 [facility] - Occupational Stress Questionnaire Answer Date [...] things needed for daily living? Yes 05/06/2024 [place] Depression Scale Answer Date Recorded [place] Depression Scale Total 3 05/06/2024 The thought [...] any time in the past 12 m [facility], were you homeless or living in a jail (including now)? 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 Not on file Not on file Last Filed Vital Signs Vital Sign Reading Time Taken Comments Blood Pressure 106/58 06/21/2024 11:07 PM [employer] Pulse 73 06/21/2024 11:07 PM [employer] Temperature 36.7 C (98.1 F) 06/21/2024 11:07 PM [employer] Respiratory Rate 16 06/21/2024 11:07 PM [employer] Oxygen Saturation 98% 06/21/2024 9:30 PM [employer] Inhaled Oxygen Concentration - - Weight 59 kg (130 lb) 06/22/2024 3:03 AM [employer] Height 157.5 cm (5' 2 ) 06/22/2024 3:03 AM [employer] Body Mass Index 23.78 06/22/2024 3:03 AM [employer] Plan of Treatment Upcoming Encounters Date Type Department Care Team (Late st Contact Info) Description 08/30/2024 Hospital Encounter [facility] [address] [place] [address] Gabriel Cano MD [address] [place] [address] [address] Procedures Procedure Name Priority Date/Time Associated Diagnosis Comments MRI INTERNAL AUDITORY CANAL INCL BRAIN WO CONTRAST ED Urgent/IP Urgent 06/22/2024 4:59 AM [employer] LEVETIRACETAM LEVEL Timed 06/21/2024 9 :33 PM [employer] AND [employer] EGFR STAT 06/21/2024 7:57 PM [employer] DIFFERENTIAL AUTO STAT 06/21/2024 7:5 7 PM [employer] COMPREHENSIVE METABOLIC PANEL STAT 06/21/2024 7:57 PM [employer] AND [employer]ATOR [employer] CBC WITH AUTO DIFFERENTIAL STAT 06/21/2024 7:57 PM [employer] AND [employer] HEPATITIS C RNA, QUANTITATIVE, PCR Routine 04/05/2024 4:25 PM [employer] Exposure to blood-borne pathogen PAP WITH REFLEX TO HIGH RISK HPV Routine 11/03/2022 7:43 AM CDT Screening for malignant neoplasm of the cervix from Last 3 Months or Most Recently Relevant to Health Maintenance Results * MRI Internal Auditory Canal Incl Brain WO Contrast (06/22/2024 4:59 AM [employer]OR AND GENERATOR [employer]) Anatomical Region Laterality Modality Head and Neck N/A Magnetic Resonan ce 06/22/2024 8:15 AM [employer] AND [employer]ATOR [employer] Impressions 06/22/2024 8:27 AM [employer] No lesions in the posterior fossa, internal auditory canals, or temporal bones to explain the patient's hearing loss. Dictated by: Fanny Adamson D.O. The radiology attending physician has personally reviewed this study, and had reviewed and/or edited this written report and agrees with it. Electronically signed by: Sahara Muñoz M.D. Narrative 06/22/2024 8:27 AM [employer] AND [employer] EXAMINATION: Magnetic resonance imaging (MRI) of the [...] * (ABNORMAL) Levetiracetam level (06/21/2024 9:33 PM [employer]OR AND GENERATOR [employer]) Levetiracetam (Keppra) <1.0(L) 10.0 - 40.0 mcg/mL [facility] ref Lab Comment: ADDITIONAL INFORMATION This test was developed and its performance characteristics determined by [facility] in a manner consistent with CLIA requirements. This test has not been cleared or approved by the U.S. Food and Drug Administration. Test Performed by: [facility] [place] [address] Technology Analyst: Junie Marie Ph.D.; CLIA# [id number] Blood 06/21/2024 9:33 PM [employer] 06/21/2024 9:34 PM [employer] AND [employer]ATOR [employer] us Daysi Metz MD LAB BLOOD ORDERABLE S Final Result [facility] 1 [facility] [place] [address] [place] ref Lab * eGFR (06/21/2024 7:57 PM MOTOR AND GENERATOR [employer]) eGFR >90 >=60 mL/min/1. 73 m2 Comment: [...] last reviewed 2021. Blood 06/21/2024 7:57 PM [employer] AND GENERATOR [employer] 06/21/2024 8:01 PM [employer] AND GENERATOR [employer] us Daysi Metz MD LAB BLOOD ORDERABLE S Final Result [facility] ([place]) 1 [facility] Department [place] [address] * Differential, auto (06/21/2024 7:57 PM [employer] AND [employer]) Neutrophil abs 5.8 1.5 - 6.5 K/cumm [...] revised on 2017. Blood 06/21/2024 7:57 PM [employer] AND [employer]ATOR [employer] 06/21/2024 8:01 PM [employer]OR AND GENERATOR [employer] us Daysi Metz MD LAB BLOOD ORDERABLE S Final Result [facility] ([place]) 1 [facility] [place] [address] * (ABNORMAL) CBC with auto differential (06/21/2024 7:57 PM [employer]OR AND GENERATOR [employer]) WBC 8.3 3.8 - 9.9 K/cumm Hgb [...] RDW SD 38.2 35.7 - 48.1 fL [facility] ([place] NRBC abs 0.00 0.00 - 0.01 K/cumm [facility] ([place] Blood 06/21/2024 7:57 PM [employer] AND GENERATOR [employer] 06/21/2024 8:01 PM [employer] AND GENERATOR [employer] us Daysi Metz MD LAB BLOOD ORDERABLE S Final Result [facility] ([place]) 1 [facility] [place] [address] * (ABNORMAL) Comprehensive metabolic panel (06/21/2024 7:57 PM [employer] GENER[employer]) Sodium 135 135 - 145 mmol/L Potassium, pl 3.8 3.3 - 4.9 mmol/L [facility] ([place] Chloride 104 97 - 110 mmol/L [facility] ([place] CO2 22 22 - 32 mmol/L [facility] ([place]) Anion gap 9 2 - 15 mmol/L [facility] ([place]) BUN 10 6 - 25 mg/dL [facility] ([place]) Creatinine 0.61 0.60 - 1.10 mg/dL [facility] ([place]) Glucose 80 70 - 199 mg/dL [facility] ([place]) Comment: Interpretive Data Fasting [...] [facility] ([place]) Blood 06/21/2024 7:57 PM [employer] AND GENERATOR [employer] 06/21/2024 8:01 PM [employer] AND GENERATOR [employer] us Daysi Metz MD LAB BLOOD ORDERABLE S Final Result [facility] ([place]) 1 [facility] [place] [address] * Hepatitis C (HCV) RNA PCR, quantitative Blood (04/05/2024 4:25 PM MOTOR AND GENERATOR [employer] CUTTER) [facility] HCV RNA result Not Detected [facility] Comment: The quantifiable range of this assay is 15 IU/mL to 100,000,000 IU/mL (1.18 log IU/mL to 8.00 log IU/mL). Testing was performed by the [facility] 6800 HCV Test ([employer] Testing performed at [facility] Current Interpretive Data was last revised on 2020 Testing performed by: [facility], [address] [facility], [place]., [address] Blood 04/05/2024 4:25 PM MOTOR AND GENERATOR [employer] C[employer]TER 04/05/2024 8:55 PM MOTOR AND GENERATOR [employer] C[employer]TER Narrative [facility] ([place]) - 04/06/2024 12:42 PM MOTOR AND GENERATOR [employer] C[employer]TER Bill to [facility] - [facility] Patient is employed by/enrolled at:->[facility] us Nelson Marshall MD LAB MICROBIOLOGY - GENERAL OR DERABLES Final Result [facility] 1 [facility] [place] [address] [facility] * Pap with reflex to High Risk HPV (11/03/2022 7:43 AM CDT) Thin prep (Pap test) 11/03/2022 7:43 AM CDT 11/04/2022 7:43 AM CDT Narrative PATHOLOGY CH - 11/06/2022 3:19 PM CDT [facility] Department of Pathology [address] [place] [id number] Final Report Note to Patients: This [...] the details. Patient Name: SAYRA HSU Address: [address] [place] [address] Gender: F : 2000 (Age: 22) Service: Location: [facility] : [id number] [facility] #: [id number] Patient Type: SPECIMEN Taken: 11/03/2022 Received: 11/04/2022 Accessioned:: 11/05/2022 Reported: 11/06/2022 Physician(s): Carissa Caraballo D.O. Diagnosis: SOURCE OF SPECIMEN Imaged Thinprep Pap Test w/ Reflex HPV - Nip Wrapper Cytologic Material: STATEMENT OF ADEQUACY - Satisfactory for evaluation; endocervical/transformation zone component present GENERAL CATEGORIZATION: - Negative for intraepithelial lesion or malignancy CIERRA Benitez(ASCP) Report Electronically Reviewed and Signed Out By CIERRA Benitez(ASCP) 11/06/2022 15:19:04Specimen(s) Received: A: Imaged Thinprep Pap Test w/ Reflex HPV - Nip Wrapper Cytologic Material Clinical History: Last Menstrual Period: [...] determined by the Surgical Pathology Department at [facility] as part of an ongoing manufacturing quality technician program and in compliance with federally mandated [...] characteristics determined by the Surgical Pathology Department [facility]. It has not been cleared or approved by the U. S. Food and Drug Administration. Mckenna Rios DO LAB CYTOLOGY ORDERABLES Final Result PATHOLOGY [address] [place] [address] from Last 3 Months or Most Recently Relevant to Health Maintenance Insurance [facility] Advance Directives For more information, please contact: [phone] * Full Code (Latest Code Status on File) Date Activated Date Inactivated Comments 06/29/2021 8:18 PM 07/01/2021 4:43 PM * Full Code Date Activated Date Inactivated Comments 06/29/2021 9:49 AM 06/29/2021 8:18 PM Full CPR in case of cardiopulmonary arrest * Full Code Date Activated Date Inactivated Comments 11/01/2017 8:56 AM 11/02/2017 11:45 PM Care Teams Website Designer Relationship Specialty Start Date End Date Abelino Stover MD [address] [place] [address] PCP - General Family Medicine 11/19/21 Gabriel Cano MD [address] [place] [address] Machine Veneer Repairer Obstetrics and Gynecology 06/29/21 Mckenna Rios DO [address] [place] [address] Consulting Physician Obstetrics and Gynecology 11/04/22
--- OUTSIDE RECORDS SUMMARY | 2024-07-29 12:59 | XMS_ITS | Clinical Summary ---
Author Organization [facility] Address [address] [place] [address] Phone Care Team Providers Care Manager Site Name Role Phone Provider, None Primary Care Provider Farhat Tejada MD Unavailable [phone] Allergies Active Allergy Reactions Criticality Noted Date [...] Comments Blood Pressure 105/60 03/16/2024 10:30 PM [employer] Pulse 100 03/16/2024 10:30 PM [employer] Temperature 36.8 C (98.2 F) 03/16/2024 10:30 PM [employer] Respiratory Rate 16 03/16/2024 10:30 PM [employer] Oxygen Saturation 100% 03/16/2024 10:30 PM [employer] Inhaled Oxygen Concentration - - Weight 58.3 kg (128 lb 8.5 oz) 03/16/2024 8:00 P M [employer] Height 157.5 cm (5' 2 ) 03/16/2024 8:00 PM [employer] Body Mass Index 23.51 03/16/2024 8:00 PM [employer] Plan of Treatment Health Maintenance Due Date [...] this topic Insurance MEDICAID [place] Care Teams Manager Site Relationship Specialty Start Date End Date Provider, None [place] PCP - General 01/21/16 Farhat Murillo MD [address] [address] General Surgery 10/22/16
--- OUTSIDE RECORDS SUMMARY | 2024-07-29 12:59 | XMS_ITS | Encounter Summary ---
Author Organization [facility] Healthcare Address [address] [place] [address] Care Team Providers Care Finance Controller Name Role Phone Wesly Shipley MD Primary Care Provider Miscellaneous, Not In File Primary Care Provider Unavailable Unknown, Notinfile Primary Care Provider Unavail able No, Physician Primary Care Provider [phone] Abelino Stover MD Primary Care Provider No, Physician Primary Care Provider [phone] Mckenna Rios DO Primary Care Provider Gabriel Cano MD Unavailable [phone] Abelino Stover MD Primary Care Provider Mckenna Rios DO Unavailable [phone] Encounter Details Date Type Department Care Team (Late st Contact Info) Description 12/03/2017 Documentation [facility] [address] [place] [phone] Zoe Mendez MD [address] [place] [address] Social History Tobacco Use Types Packs/Day Years Used Date Smoking Tobacco: Never Smokeless Tobacco: Never Alcohol Use Standard Drinks/Week Comments No 0 (1 standard drink = 0.6 oz pur e alcohol) Comments No Sex and Gender Information Value Date Recorded Sex Assigned at Not on file Legal Sex Female 11:17 PM POLICE DETENTION ATTENDANT Gender Identity Not on file Sexual Orientation Not on file documented as of this encounter Plan of Treatment Upcoming Encounters Date Type Department Care Team (Late st Contact Info) Description 08/30/2024 Hospital Encounter [facility] [address] [place] [address] Gabriel Cano MD [address] [place] [address] documented as of this encounter Visit Diagnoses Not on filedocumented in this encounter Additional Health Concerns Infection Onset Date Last Indicated Resolved Time COVID19 Comment:Added from the Screening question BPA, identifying patients that tested positive for COVID in the last 14 days and the result is from a facility outside [facility] . 05/09/2021 05/09/2021 05/22/2021 3:05 AM POLICE DETENTION ATTENDANT COVID: Suspected 08/14/2022 08/14/2022 08/14/2022 9:17 AM CDT COVID19 08/14/2022 08/14/2022 08/24/2022 3:06 AM CDT COVID: Recovered Comment:Added based on recent COVID infection. 08/24/2022 10/03/2022 11/22/2022 3:05 AM C DT documented as of this encounter Care Teams Finance Controller Relationship Specialty Start Date End Date Wesly Shipley MD [address] [place] [address] DR MADRID B [address] [address] PCP - General Obstetrics and Gynecology 10/22/17 02/14/18 Miscellaneous, Not In File PCP - General 02/15/18 12/26/18 Unknown, Notinfile PCP - General 12/27/18 04/23/19 No, Physician PCP - General 04/24/19 01/14/21 Abelino Stover MD PCP - General Family Medicine 01/15/21 03/28/21 No, Physician PCP - General 03/29/21 05/13/21 Mckenna Rios DO [address] [place] [address] PCP - General Obstetrics and Gynecology 05/14/21 06/16/21 Abelino Stover MD PCP - General Family Medicine 11/19/21 Gabriel Cano MD [address] [place] [address] [address] Research Professor Of Biostatistics Obstetrics and Gynecology 06/29/21 Mckenna Rios DO [address] [place] [address] Consulting Physician Obstetrics and Gynecology 11/04/22 documented as of this encounter
--- NOTE | 2024-07-29 13:01 | PC.NURSE ---
Adriano LOCKHART at the bedside discussing POC with the pt. CNM plans to induce pt.
--- NOTE | 2024-07-29 13:05 | PM.IMHP ---
H&P: HPI History of Present Illness Date/Time: 07/29/24 13:05 Chief Complaint: at 35.2 weeks gestation, who presents initially for evaluation from the office. In office 3 late decelerations noted after contractions, late deceleration noted on FHR once in LD. hx of seizure disorder and is on Keppra daily. hx HSV, no supressive medication had been prescribed. hx of 19 week IUFD. Hx of IUGR in this but at [facility] this week, growth was wnl. Review of Systems Review of Systems: All systems reviewed & are unremarkable except as noted in HPI and below PMFSH Family History Family History Mother Breast cancer Social History Social History Smoking status: Never smoker Substance use: never Gender identity (if verbalized by the patient): Female Spiritual care concerns: No Meds Home Medications and Allergies Home Medications ?Medication ?Instructions ?Recorded ?Confirmed ?Type levetiracetam 1,000 mg tablet 1,000 mg PO DAILY 10/10/19 10/10/19 History vitamins-iron fumarate 27 1 tablet PO DAILY 10/10/19 10/10/19 History mg iron-folic acid 0.8 mg tablet ( Vitamin) valacyclovir 500 mg tablet 10/10/19 History Allergies Allergy/AdvReac Type Severity Reaction Status Date / Time morphine Allergy Hives Verified 09/20/19 16:32 Vital Signs Vital Signs - 24 hr 07/29/24 13:00 Pulse Rate 93 Blood Pressure 115/59 L Exam Const: General: cooperative and healthy appearing Chest: Chest palpation & inspection: normal inspection of the chest Resp: Effort & Inspection: normal respiratory effort Cardio: Rate: regular rate Rhythm: regular rhythm GI: Other: gravid/soft : Other: in office 2cm/60/-2 Back/Spine/Pelvis: Back: no CVA tenderness Skin: General skin exam: normal color, no rashes or lesions noted, elasticity normal and turgor normal Extrem: General: normal to inspection Psych: Appearance: grossly normal Mental Status: mental status grossly normal Assessment and Plan Assessment and plan (1) Non-reassuring heart rate or rhythm affecting management of fetus: Status: Acute (2) Seizure disorder during : Code(s): O99.350 - Diseases of the nervous system complicating , unspecified trimester; G40.909 - Epilepsy, unspecified, not intractable, without status epilepticus Status: Acute Plan non reassuring heart tones discussed with pt options for vaginal delivery vs delivery. Plan epidural catheter placement then will plan AROM, co-managing with dr. sood
[2024-07-29] MEDS: AMPICILLIN 2 GM/NS 100 ML 2 GM/100 ML BAG IVPB (13:46)
[2024-07-29] MEDS: PHENYLEPHRINE 1,000 MCG/10 ML SYRINGE 100 MCG IV PUSH (13:46)
[2024-07-29] MEDS: LACTATED RINGERS 1,000 ML 125 ML IV CONT ×2 (13:46→15:05)
[2024-07-29 13:48] LABS: Basophils Percent Auto 0.3 % (0.2-1.2); Eosinophils Absolute Auto 0.1 K/mm3 (0-0.3); Eosinophils Percent Auto 0.8 % (0-4.4); Hematocrit 30.2 % (37.0-47.0); Hemoglobin 9.7 g/dL (12.0-15.0); Immature Granulocyte Absolute 0.06 K/mm3 (0.00-0.031); Immature Granulocyte Percent A 0.8 % (0-0.5); Lymphocytes Absolute Auto 1.25 K/mm3 (0.9-3.2); Lymphocytes Percent Auto 16.5 % (18.3-44.2); Mean Corpuscular HGB Conc 32.1 g/dl (32-36); Mean Corpuscular Hemoglobin 26.4 pg (26-34); Mean Corpuscular Volume 82.1 fl (80-100); Mean Platelet Volume 10.9 fl (7.4-10.4); Monocytes Absolute Auto 0.6 K/mm3 (0.1-0.6); Monocytes Percent Auto 7.5 % (2.6-8.5); Neutrophils Absolute Auto 5.6 K/mm3 (1.3-6.7); Neutrophils Percent Auto 74.1 % (45.5-73.1); Platelet Count Result 162 k/mm3 (150-375); Red Blood Count 3.68 M/mm3 (4.2-5.4); Red Cell Distribution Width 13.1 % (11.5-14.5); White Blood Count 7.6 K/mm3 (4.5-10.0)
[2024-07-29 14:25] LABS: Syphilis IgG/IgM Antibody Negative (Negative)
--- NOTE | 2024-07-29 14:34 | LDADM ---
This patient, Sayra Hsu, was admitted to Labor/Delivery/Recovery 102 on 07/29/24 at 1229. Plans for labor, pain management and were discussed with patient. Patient/family oriented to hospital policies and general routines including ID bracelet, bed and alarms, visiting hours, pain management, procedures, bathroom and other care routines, personal items, smoking policy, room service/diet and guest tray routines, security routines, and visiting hours. Patient/Family are encouraged to report perceived risks to care and to ask questions if they do not understand what they are told or what they should do. See OBIX for further documentation.
[2024-07-29 14:38] LABS: HIV 1/2 Ab P24 Ag Result Negative (Negative)
--- NOTE | 2024-07-29 14:47 | PM.OBPNLAB ---
Pain Control Date/time seen: 07/29/24 14:47 Pelvic Exam Dilation (cm): 2 Effacement (%): 80 station: -2 Amniotic membrane status: Ruptured Comments: IUPC placed co-managing with Dr. Coughlin
[2024-07-29] MEDS: OXYTOCIN 30 UNITS/NS 500 ML 30 UNITS/500 ML BAG IV CONT (15:42)
--- NOTE | 2024-07-29 17:22 | PM.OBPRVD ---
OB - Vaginal Delivery Note Procedure Delivery date: 07/29/24 Events: Intrauterine Growth Restriction (IUGR) (resolved) and Other (35 weeks, seizure disorder, HsV hx) Induction method: AROM and Per Pitocin Protocol Delivery monitor: External FHT and Internal Uterine Route of delivery: Episiotomy description: None Laceration Description: None Specimen: Yes Quantitative Blood Loss (ml): 80 Anesthesia type: Epidural Disposition: Floor Complications: No immediate complications [place] Baby Date of : 07/29/24 Time of : 17:16 Gestational Age by Date: 35 Infant gender: Male presentation: vertex position: Left Occiput Anterior Placenta delivery description: Spontaneous Cord Vessel Description: Nuchal Cord (x1), Loose and Reduced Narrative: baby to warmer for evaluation by business office technician
[2024-07-29] MEDS: OXYTOCIN 30 UNITS/NS 500 ML 30 UNITS/500 ML BAG 125 UNITS IV CONT (17:40)
[2024-07-29] MEDS: levETIRAcetam 500 MG TABLET 1000 MG PO (18:56)
[2024-07-29] MEDS: IBUPROFEN 600 MG TABLET PO (18:58)
[2024-07-29] MEDS: ACETAMINOPHEN 325 MG TABLET 650 MG PO (22:05)
[2024-07-29] MEDS: HYDROcodone/acetaminophen (*CRX) 5-325 MG TABLET 1 TAB PO (23:48)
[2024-07-29] MEDS: KETOROLAC 15 MG/ML VIAL (*BKC) IV PUSH (23:49)
[2024-07-30 00:35] VITALS: BP 86/62; PULSE 75; RESP 16; TEMP 36.9; O2SAT 100
[2024-07-30] MEDS: ACETAMINOPHEN 325 MG TABLET 650 MG PO ×4 (03:23→22:18)
[2024-07-30 03:30] VITALS: BP 98/80; PULSE 70; RESP 16; TEMP 36.6; O2SAT 100
[2024-07-30] MEDS: IBUPROFEN 600 MG TABLET PO ×3 (05:09→18:57)
[2024-07-30 05:45] LABS: Hematocrit 27.7 % (37.0-47.0); Hemoglobin 8.9 g/dL (12.0-15.0)
[2024-07-30 08:00] VITALS: BP 88/61; PULSE 61; RESP 19; TEMP 36.7; O2SAT 100
[2024-07-30] MEDS: HYDROcodone/acetaminophen (*CRX) 5-325 MG TABLET 1 TAB PO ×2 (08:11→19:50)
[2024-07-30] MEDS: POLYSACCHARIDE IRON COMPLEX 150 MG CAPSULE PO ×2 (08:15→18:57)
[2024-07-30] MEDS: MULTIVIT/MIN/PREN/FOL AC/IRON TABLET 1 TAB PO (08:15)
--- NOTE | 2024-07-30 08:28 | PCCCNOTE ---
Consults received for other and SDOH (transportation, bills and housing). real estate coordinator reviewed pt.'s chart appears she has [address] insurance, lives in [place], and works at [employer]. RN last night already provided pt. with SDOH resources. Called and spoke with [facility] this morning to see if pt. was in need of any alternative resources. Per Torrie at this time pt. was already provided with SDOH and appears not to need Care Coordination at this time. Torrie to contact residential caregiver if anything new needs arise.
[2024-07-30] MEDS: levETIRAcetam 500 MG TABLET 1000 MG PO ×2 (08:57→20:56)
--- NOTE | 2024-07-30 09:44 | P.PNOB_ITS ---
OB - PN: Subj Subjective Date/time seen: 07/30/24 09:44 Interval history: PPD#1 s/p Baby in level 2 nursery, working on feeding Having severe uterine cramping, improved with norco No nausea, tolerating general diet Voiding without issue OB - PN: Obj Data Labs 07/30/24 04:57 Labs: Laboratory Results - last 24 hr 07/29/24 07/30/24 13:16 04:57 WBC 7.6 RBC 3.68 L Hgb 9.7 L 8.9 L Hct 30.2 L 27.7 L MCV 82.1 MCH 26.4 MCHC 32.1 RDW 13.1 Plt Count 162 MPV 10.9 H Immature Gran % (Auto) 0.8 H Neut % (Auto) 74.1 H Lymph % (Auto) 16.5 L [place] % (Auto) 7.5 Eos % (Auto) 0.8 Baso % (Auto) 0.3 Lymph # (Auto) 1.25 [place] # (Auto) 0.6 Eos # (Auto) 0.1 Baso # (Auto) 0.0 Abs Immat Gran (auto) 0.06 H Absolute Neuts (auto) 5.6 Absolute Nucleated RBC 0.000 Nucleated RBC % 0.0 Syphilis IgG/IgM Ab Negative HIV 1&2 Ab/P24 Ag 4thGn Negative Blood Type B Positive Antibody Screen Negative OB - PN A/P Assessment and Plan (1) (spontaneous vaginal delivery): Code(s): O80 - Encounter for full-term uncomplicated delivery Status: Acute Plan day: 1 Plan: routine care Time Spent With Patient Time: Total time spent is greater than 50% in coordination of care (as documented) at patient's floor/unit and/or counseling patient: Review of Systems 2 Review of Systems: All systems reviewed & are unremarkable except as noted in HPI and below Exam 2 Const: General: comfortable and no acute distress O rientation/consciousness: patient oriented x3 Resp: Effort & Inspection: normal respiratory effort
--- NOTE | 2024-07-30 11:49 | PC.NURSE ---
Breast pump provided due to maternal request. Instructions given on cleaning, care, usage, that there should be no pain, pumping schedule for milk production, collection, and storage of human milk. Patient was assessed for correct placement, flange size (21mm), to pump for comfort and nipple stretching/stimulation for adequate milk production every 3 hours (8 times in 24 hours) 1-2 times at night. Mother provided an insurance pump at this time ([employer]). Mother denies additional questions at this time.
[2024-07-30 12:10] VITALS: BP 113/70; PULSE 70; RESP 17; TEMP 36.6; O2SAT 100
--- NOTE | 2024-07-30 16:45 | WPDANLDPN2 ---
Anes-Prog Note L&D Date/Time: 07/30/24 16:45 Neuro status: Neuro function grossly intact. Cardiovascular status: normal Respiratory status: normal Airway patency: baseline Mental status: baseline Post-Op hydration status: normal Vital Signs: Last Vital Signs Temp 36.6 C 07/30/24 12:10 Pulse 70 07/30/24 12:10 Resp 17 07/30/24 12:10 BP 113/70 07/30/24 12:10 Pulse Ox 100 07/30/24 12:10 O2 Del Method Room Air 07/30/24 12:00 Pain score (VAS): 1 Post-procedural complaints: none Patient feedback: Patient satisfied with anesthetic care.
--- NOTE | 2024-07-30 16:55 | PC.NURSE ---
Mom requested that this RN take infant so that she could step outside for fresh air. This RN took and mom stated that once is done with testing at 24 hours that this RN could bring back to room. Once testing was completed this RN brought infant back to room and mom had not returned yet. Mom did not return to unit until 1814 with a large pizza and ice cream.
[2024-07-30 18:34] VITALS: BP 93/50; PULSE 80; RESP 18; TEMP 36.6; O2SAT 100
[2024-07-30] MEDS: DOCUSATE SODIUM 100 MG CAPSULE PO (18:58)
[2024-07-30] MEDS: oxyCODONE HCL (*CRX) 5 MG TAB IR PO (22:48)
[2024-07-31] MEDS: IBUPROFEN 600 MG TABLET PO ×2 (00:58→07:05)
[2024-07-31] MEDS: oxyCODONE HCL (*CRX) 5 MG TAB IR PO ×3 (02:23→12:00)
[2024-07-31 02:25] VITALS: BP 97/51; PULSE 53; RESP 18; O2SAT 99
[2024-07-31] MEDS: SIMETHICONE 80 MG TAB.CHEW PO ×2 (02:30→04:05)
[2024-07-31] MEDS: ACETAMINOPHEN 325 MG TABLET 650 MG PO ×2 (04:04→10:36)
[2024-07-31 04:07] VITALS: TEMP 36.4
[2024-07-31] MEDS: DOCUSATE SODIUM 100 MG CAPSULE PO (07:04)
[2024-07-31] MEDS: POLYSACCHARIDE IRON COMPLEX 150 MG CAPSULE PO (07:04)
[2024-07-31 07:15] VITALS: BP 105/69; PULSE 57; RESP 16; TEMP 36.4; O2SAT 100
--- NOTE | 2024-07-31 08:34 | P.PNOB_ITS ---
OB - PN: Subj Subjective Date/time seen: 07/31/24 08:34 Interval history: PPD#1 s/p Baby doing well, in regular care nursery Severe abdominal pain continued overnight, worsening after , controlled with pain medications Patient able to ambulate without issue No nausea, tolerating general diet Voiding without issue OB - PN: Obj Data Labs 07/30/24 04:57 Imaging Radiologist's impression: Impressions Abdomen/Pelvis CT 07/31/24 06:36 IMPRESSION: 4.6 cm focus of increased attenuation within the lower third of the enlarged uterus for which blood products are suspected. 2 mm nonobstructing calculus within the lower pole of the right kidney. OB - PN A/P Assessment and Plan (1) (spontaneous vaginal delivery): Code(s): O80 - Encounter for full-term uncomplicated delivery Status: Acute (2) Abdominal pain: Code(s): R10.9 - Unspecified abdominal pain Status: Acute Assessment and Plan: - exam benign - VSS, afebrile - CT AP performed due to continued severe pain, wnl including uterus - likely uterine cramping due to recent delivery, worsening with - improved with pain medications - patient reports she is ready for discharge today Plan day: 2 Plan: routine care and discharge home Time Spent With Patient Time: Total time spent is greater than 50% in coordination of care (as documented) at patient's floor/unit and/or counseling patient: Review of Systems 2 Review of Systems: All systems reviewed & are unremarkable except as noted in HPI and below
--- NOTE | 2024-07-31 08:39 | P.DS_ITS ---
DS: Admitting Diagnosis Discharge Date 07/31/24 Admitting Diagnosis nonreassuring heart tones DS: Discharge Diagnosis Discharge Diagnosis (1) (spontaneous vaginal delivery): Code(s): O80 - Encounter for full-term uncomplicated delivery Status: Acute OB - DS: Summary OB Procedures : None OB Procedures Intrapartum: Spontaneous Vag Delivery OB Procedures: : None Peripartum Data Laceration Description: None Episiotomy description: None Time Spent with Patient Time attestation: Total time spent providing and/or coordinating discharge services: DS: Data Data Completed and Pending Pending studies at discharge: Pending at discharge 07/29/24 17:59 Surgical [PTH] Routine Discharge Plan Discharge Attending physician on discharge: Tiago Coughlin Discharging Clinician: Tiago Coughlin Patient Disposition: Home, Self-Care Activity: may shower, as tolerated and pelvic rest Diet: as tolerated Discharge Instructions: OB ANTEPARTUM DISCHARGE INSTRUCTIONS This information is given to help you properly care for yourself at home after your discharge from the hospital. Follow these instructions until your doctor tells you otherwise. DIET: Additional Diet Instructions: ACTIVITY: Additional Activity Instructions: RETURN TO LABOR AND DELIVERY IF YOU HAVE: Additional Reasons to Return to Labor and Delivery: Contractions may feel like abdominal pain, tightening, cramping, pressure, back ache, or thigh ache. 24 Hour Urine Collection: Continue 24 hour urine collection until at . When collection is completed, return specimen to the [facility]. See handout for 24 hour urine collection. OTHER INSTRUCTIONS: FOLLOW-UP CARE: To see in/on Valuables released to patient or family? Medications from home returned to patient? IF YOU HAVE ANY QUESTIONS REGARDING THESE INSTRUCTIONS, PLEASE CALL [phone]. IF PROBLEMS ARISE, CALL YOUR PROVIDER. IF EMERGENCY CARE IS NEEDED, [facility] EMERGENCY ROOM IS AVAILABLE 24 HOURS A DAY. Patient Instructions: Antibiotic Form Patient Language: Vietnamese Stand Alone Forms: General Discharge Information Follow-up/Referrals: Fanny Gilmore CNM [Certified Nurse Photocopy Operator] - 4 Weeks Discharge Medications: New docusate sodium 100 mg Capsule 100 mg PO BID PRN (Reason: Constipation) Qty: 60 0RF ibuprofen 600 mg Tablet 600 mg PO Q6H PRN (Reason: Cramping) Qty: 30 0RF acetaminophen 500 mg tablet 1,000 mg PO Q8H PRN (Reason: pain) Qty: 30 0RF Continued Vitamin 27 mg iron- 0.8 mg Tablet 1 tablet PO DAILY levetiracetam 1,000 mg tablet 1,000 mg PO DAILY valacyclovir 500 mg tablet Date of admission: 07/29/24 12:30 Primary Care Provider: PHYSICIAN,LAB COURIER Admitting Provider: Kevin Suarez Attending physician on admission: Kevin Suarez Condition: Stable
[2024-07-31] MEDS: MULTIVIT/MIN/PREN/FOL AC/IRON TABLET 1 TAB PO (08:58)
[2024-07-31] MEDS: levETIRAcetam 500 MG TABLET 1000 MG PO (08:58)
[2024-07-31] MEDS: TETANUS,DIPHTHERIA,AC PERTUSSIS ADULT (0.5 ML) BOOSTRIX IM (08:58)
[2024-08-02 09:25] VITALS: BP 102/57; PULSE 52; RESP 18; TEMP 37.5; O2SAT 100
--- NOTE | 2024-08-04 11:43 | PCCCNOTE ---
Care Coordination. Pt. referred to CC for resources. Met with pt. and FOB at bedside. They report between the 2 of them they have 7 kids. Pt. was given a basket of baby care items through nursing. Provided pt. with transportation information and explained how to get rides for doctor appointments etc. She is not setup with [facility], so took information on centers, housing, and utility as well. She reports working on getting into [facility], but doing ok for now. They do have some family support in the area. They do have a ride home today. Baby is likely to be discharged today. RN reports mother has had a lot of pain and came back via ambulance at one point due to this. Pt. reports she has been doing good now and was up moving fine and feeding baby during my discussion with them. Pt. will also get some extra formula from nursing before DC. No further CC needs identified.
== END 2024-07-31 13:35 | disposition home or self-care (01) | DRG 560 ==
LOC: ANHOBPP 13:03 → ANHLDR 13:06 → ANHOB2 22:17
PROVIDERS: Advanced Practice Midwife; Admitting Provider Obstetrics & Gynecology; Visit Provider Obstetrics & Gynecology
DX: O62.3 Precipitate labor (principal); O36.5930 Maternal care for other known or suspected poor fetal growth, third trimester, not applicable or unspecified; O69.81X0 Labor and delivery complicated by cord around neck, without compression, not applicable or unspecified; O76 Abnormality in fetal heart rate and rhythm complicating labor and delivery; O99.354 Diseases of the nervous system complicating childbirth; Z3A.35 35 weeks gestation of pregnancy; Z37.0 Single live birth; G40.909 Epilepsy, unspecified, not intractable, without status epilepticus
CPT/HCPCS: 36415; 59025; 74176; 85014; 85018; 85025; 86593; 86703; 86850; 86900; 86901; 88307; 90715; A9270; G0432; J0290; J1885; J2371; J2590; J2795; J7120

== ENCOUNTER 2024-08-01 00:28 | Emergency (ER) | payer OTHER, SELFPAY ==
[2024-08-01 00:30] VITALS: BP 112/69; PULSE 61; RESP 18; TEMP 36.6; O2SAT 99
[2024-08-01 01:10] LABS: Basophils Absolute Auto 0.1 K/mm3 (0.0-0.1); Basophils Percent Auto 0.4 % (0.2-1.2); Eosinophils Absolute Auto 0.1 K/mm3 (0-0.3); Eosinophils Percent Auto 0.9 % (0-4.4); Hematocrit 32.9 % (37.0-47.0); Hemoglobin 10.7 g/dL (12.0-15.0); Immature Granulocyte Absolute 0.07 K/mm3 (0.00-0.031); Immature Granulocyte Percent A 0.6 % (0-0.5); Lymphocytes Absolute Auto 1.89 K/mm3 (0.9-3.2); Lymphocytes Percent Auto 15.6 % (18.3-44.2); Mean Corpuscular HGB Conc 32.5 g/dl (32-36); Mean Corpuscular Hemoglobin 26.4 pg (26-34); Mean Corpuscular Volume 81.2 fl (80-100); Mean Platelet Volume 10.9 fl (7.4-10.4); Monocytes Absolute Auto 0.4 K/mm3 (0.1-0.6); Monocytes Percent Auto 3.1 % (2.6-8.5); Neutrophils Absolute Auto 9.6 K/mm3 (1.3-6.7); Neutrophils Percent Auto 79.4 % (45.5-73.1); Platelet Count Result 203 k/mm3 (150-375); Red Blood Count 4.05 M/mm3 (4.2-5.4); Red Cell Distribution Width 13.1 % (11.5-14.5); White Blood Count 12.1 K/mm3 (4.5-10.0)
[2024-08-01 01:12] VITALS: BP 125/98; PULSE 70; RESP 16; O2SAT 99
[2024-08-01 01:19] LABS: Alanine Aminotransferase 19 U/L (6-35); Albumin Level 3.2 g/dL (3.5-5.1); Alkaline Phosphatase 113 U/L (38-126); Anion Gap 8 mmol/L (4-12); Aspartate Amino Transferase 25 U/L (14-36); Bilirubin,Total 0.3 mg/dL (0.2-1.3); Blood Urea Nitrogen 8 mg/dL (7-17); Calcium 9.3 mg/dL (8.4-10.2); Carbon Dioxide 22 mmol/L (22-30); Chloride 107 mmol/L (98-107); Estimated CRCL calculation 100 ml/min; Estimated Glomerular Filt Rate > 60; Glucose 89 mg/dL (65-110); Lipase 50 U/L (23-300); Potassium 3.9 mmol/L (3.4-5.0); Sodium 137 mmol/L (137-145)
[2024-08-01] MEDS: HYDROmorphone HCL INJ (*CRX) 1 MG/ML SYR 0.5 MG IV PUSH (01:30)
--- OUTSIDE RECORDS SUMMARY | 2024-08-01 01:35 | XMS_ITS | Referral Summary ---
Author Organization [facility] Address [address] [place] [address] Care Team Providers Care Professor Of Poultry Science Name Role Phone Gabriel Cano MD Unavailable [phone] Abelino Stover MD Primary Care Provider Mckenna Rios DO Unavailable [phone] Encounters Date Type Department Care Team Description 07/23/2024 Telephone [facility] [address] [facility] Outpatient Health 4th Floor [address] [place] [phone] Shirley Shane 06/28/2024 Orders Only [facility] Occupatiuonal Health [address] [facility] Room [address] (Third Floor) [place] [address] Nelson Marshall MD Pre-employment health screening examination (Primary Dx) 06/21/2024 11:02 PM MANAGER HOSPITALITY - 06/22/2024 9:25 AM MANAGER HOSPITALITY Hospital Encounter [address] [phone] Geno Bhakta MD Seizure disorder (HCC) (Primary Dx); 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 Discharge Disposition: Discharge to home or self care 06/21/2024 10:03 PM MANAGER HOSPITALITY - 06/21/2024 11:59 PM MANAGER HOSPITALITY Hospital Encounter [facility] Emergency, Room R Discharge Disposition: Discharge to home or self care 06/21/2024 8:25 PM MANAGER HOSPITALITY - 06/21/2024 10:01 PM MANAGER HOSPITALITY Emergency [facility] Emergency Department 1 [place] [address] Daysi Metz MD Seizure-like activity (HCC) (Primary Dx); Abdominal pain Discharge Disposition: Discharge to a short term hospital for IP 06/10/2024 Telephone [facility] Accountable Care Organization [address] [place] [address] Parul Burris Unsuccessful Phone Call 1 (Scheduling [facility]erm[facility] Annual Exam) 05/17/2024 Telephone [facility] [address] Room [address] (Third Floor) [place] [address] Aleshia Harkins, RN COVID-19 EVALUATION 05/05/2024 Documentation [facility] Warm Hand Off Program [address] [place], [place] [phone] Pao Ramos 05/05/2024 Orders Only [address] Room 3420 (Third Floor) [place] [address] Nelson Marshall MD History of exposure to blood or body fluid (Primary Dx) from Last 3 Months Allergies Active Allergy Reactions Criticality Noted Date Comments Morphine Hives,Rash Medium 07/26/2017 Medications albuterol HFA (PROVENTIL HFA,VENTOLIN HFA,PROAIR HFA) 90 mcg/actuation inhalerIndication s:Mild intermittent asthma without complication Inhale 2 puffs every 4 (four) hours as needed for wheezing or shortness of breath 1 each 2 1 Active citalopram (CeleXA) 10 mg tabletIndications :FLOWER (generalized anxiety disorder),Adjustm ent disorder with depressed mood Take 1 tablet (10 mg total) by mouth daily 90 tablet 1 Active aspirin 81 mg chewable tablet Take 1 tablet (81 mg total) by mouth daily 30 tablet 11 1 Active levETIRAcetam (KEPPRA) 500 mg tabletIndications :Seizure disorder (HCC) TAKE 1 TABLET BY MOUTH TWICE A DAY 60 tablet 1 1 Active Active Problems Problem Noted Date Diagnosed [...] safe. Adjustment disorder with depressed mood 02/15/20 21 Assessment & Plan (02/14/2021 4:25 AM CDT): [...] 11/01/2017 Overview (08/12/2023): labor Seizure disorder ([facility]/HCC) 10/19/2017 Assessment & Plan (11/28/2021 2:07 [...] done, and thus equally as impossible to drug and alcohol counsellor her regarding if this might affect her [...] be conservative. [x] Co-management vs. [] Full [facility] Care Referring Provider: Wesly Shipley [] Dating Criteria: [] Labs: Rh , Ab , Rubella , HIV , HepBSAg , RPR [] Genetic Screening: [] Hgb electrophoresis (if indicated) [] GC/CT [] UCx [] Pap: [] PNBHS referral (if indicated) 2nd Tri Labs: [] Anatomy ultrasound [] CBC, [] 1hr gtt at 24-28wks: [] Flu Shot (Sep-Dec) [] Tdap (27-36wks) [] Rhogam (if Rh neg): 3rd Tri Labs: [] CBC/HIV/RPR/T&S [] GBS [] GC/CT (if indicated) Counselling [] MOD: [] Place of delivery: [] MOC: [] Method of feeding: [] Helminthology Teacher: [] Car seat Discussed [] PP Depression [...] drink = 0.6 oz pur e alcohol) [facility] Utilities Answer Date Recorded In the past 12 months has e [employer], gas, oil, or water [employer] threatened to shut off services in your [...] week 05/06/2024 How often do you attend [facility] or sikh services? Never 05/06/2024 Do you belong to any clubs o r organizations such as quaker groups, unions, fraternal or athletic groups, or [...] Date Recorded PHQ-2 Total Score 0 05/06/2024 [facility] - Occupational Stress Questionnaire Answer [...] things needed for daily living? Yes 05/06/2024 Bittinger Depression Scale Answer Date Recorded Bittinger Depression Scale Total 3 05/06/2024 The thought [...] in the past 12 m [facility], were you homeless or living in a [...] on file Legal Sex Female 11:17 PM MANAGER HOSPITALITY Gender Identity Not on file Sexual Orientation Not on file Occupation Industry Job Start Date Job End Date [employer] Not on file Not on file Not on file Last Filed Vital Signs Vital Sign Reading Time Taken Comments Blood Pressure 106/58 06/21/2024 11:07 PM MANAGER HOSPITALITY Pulse 73 06/21/2024 11:07 PM MANAGER HOSPITALITY Temperature 36.7 C (98.1 F) 06/21/2024 11:07 PM MANAGER HOSPITALITY Respiratory Rate 16 06/21/2024 11:07 PM MANAGER HOSPITALITY Oxygen Saturation 98% 06/21/2024 9:30 PM MANAGER HOSPITALITY Inhaled Oxygen Concentration - - Weight 59 kg (130 lb) 06/22/2024 3:03 AM MANAGER HOSPITALITY Height 157.5 cm (5' 2 ) 06/22/2024 3:03 AM MANAGER HOSPITALITY Body Mass Index 23.78 06/22/2024 3:03 AM MANAGER HOSPITALITY Plan of Treatment Upcoming Encounters Date Type Department Care Team (Late st Contact Info) Description 08/30/2024 Hospital Encounter [facility] [address] [place] [address] Gabriel Cano MD [address] [place] [address] Procedures Procedure Name Priority Date/Time Associated Diagnosis Comments MRI INTERNAL AUDITORY CANAL INCL BRAIN WO CONTRAST ED Urgent/IP Urgent 06/22/2024 4:59 AM MANAGER HOSPITALITY LEVETIRACETAM LEVEL Timed 06/21/2024 9 :33 PM MANAGER HOSPITALITY EGFR STAT 06/21/2024 7:57 PM MANAGER HOSPITALITY DIFFERENTIAL AUTO STAT 06/21/2024 7:5 7 PM MANAGER HOSPITALITY COMPREHENSIVE METABOLIC PANEL STAT 06/21/2024 7:57 PM MANAGER HOSPITALITY CBC WITH AUTO DIFFERENTIAL STAT 06/21/2024 7:57 PM MANAGER HOSPITALITY HEPATITIS C RNA, QUANTITATIVE, PCR Routine 04/05/2024 4:25 PM MANAGER HOSPITALITY Exposure to blood-borne pathogen PAP WITH REFLEX TO HIGH RISK HPV Routine 11/03/2022 7:43 AM CDT Screening for malignant neoplasm of the cervix from Last 3 Months or Most Recently Relevant to Health Maintenance Results * MRI Internal Auditory Canal Incl Brain WO Contrast (06/22/2024 4:59 AM MANAGER HOSPITALITY) Anatomical Region Laterality Modality Head and Neck N/A Magnetic Resonan ce 06/22/2024 8:15 AM MANAGER HOSPITALITY Impressions 06/22/2024 8:27 AM MANAGER HOSPITALITY No lesions in the posterior fossa, internal auditory canals, or temporal bones to explain the patient's hearing loss. Dictated by: Fanny Adamson D.O. The radiology attending physician has personally reviewed this study, and had reviewed and/or edited this written report and agrees with it. Electronically signed by: Sahara Muñoz M.D. Narrative 06/22/2024 8:27 AM MANAGER HOSPITALITY EXAMINATION: Magnetic resonance imaging (MRI) of the [...] by: Sahara Muñoz M.D. Geno Bhakta MD IM MRI PROCEDURES Final R esult * (ABNORMAL) Levetiracetam level (06/21/2024 9:33 PM MANAGER HOSPITALITY) Levetiracetam (Keppra) <1.0(L) 10.0 - 40.0 mcg/mL Gregory ref Lab Comment: ADDITIONAL INFORMATION This test was developed and its performance characteristics determined by [facility] in a manner consistent with CLIA requirements. This test has not been cleared or approved by the U.S. Food and Drug Administration. Test Performed by: [facility] [address] [place] [address] [employer] Crew Member: Junie Marie Ph.D.; CLIA# [id number] Blood 06/21/2024 9:33 PM MANAGER HOSPITALITY 06/21/2024 9:34 PM MANAGER HOSPITALITY Daysi Metz MD LAB BLOOD ORDERABLE S Final Result Performing Organization Address City/[facility]/ZIP Co de Phone Number CATALINO DELGADILLO ([place]) 1 [facility] [place] [address] Gregory ref Lab * eGFR (06/21/2024 7:57 PM MANAGER HOSPITALITY) eGFR >90 >=60 mL/min/1. 73 m2 Comment: [...] last reviewed 2021. Blood 06/21/2024 7:57 PM MANAGER HOSPITALITY 06/21/2024 8:01 PM MANAGER HOSPITALITY us Daysi Metz MD LAB BLOOD ORDERABLE S Final Result [facility]ALINO DELGAD[facility]O ([place]) 1 [facility] [place] [address] * Differential, auto (06/21/2024 7:57 PM MANAGER HOSPITALITY) Neutrophil abs 5.8 1.5 - 6.5 K/cumm [...] revised on 2017. Blood 06/21/2024 7:57 PM MANAGER HOSPITALITY 06/21/2024 8:01 PM MANAGER HOSPITALITY us Daysi Metz MD LAB BLOOD ORDERABLE S Final Result [facility] ([place]) 1 [facility] Department [place] [address] * (ABNORMAL) CBC with auto differential (06/21/2024 7:57 PM MANAGER HOSPITALITY) [facility] WBC 8.3 3.8 - 9.9 K/cumm Hgb [...] [facility] ([place]) Blood 06/21/2024 7:57 PM MANAGER HOSPITALITY 06/21/2024 8:01 PM MANAGER HOSPITALITY us Daysi Metz MD LAB BLOOD ORDERABLE S Final Result [facility] ([place]) 1 [facility] [place] [address] * (ABNORMAL) Comprehensive metabolic panel (06/21/2024 7:57 PM MANAGER HOSPITALITY) Sodium 135 135 - 145 mmol/L Potassium, [...] [facility] ([place]) Blood 06/21/2024 7:57 PM MANAGER HOSPITALITY 06/21/2024 8:01 PM MANAGER HOSPITALITY us Daysi Metz MD LAB BLOOD ORDERABLE S Final Result [facility] ([place]) 1 [facility] Department [place] [address] * Hepatitis C (HCV) RNA PCR, quantitative Blood (04/05/2024 4:25 PM MANAGER HOSPITALITY) HCV RNA result Not Detected [facility] Comment: The quantifiable range of this assay is 15 IU/mL to 100,000,000 IU/mL (1.18 log IU/mL to 8.00 log IU/mL). Testing was performed by the [facility]EN[facility] 6800 HCV Test ([employer] Testing performed at [facility] Current Interpretive Data was last revised on 2020 Testing performed by: [facility], [address] [place]., [address] Blood 04/05/2024 4:25 PM MANAGER HOSPITALITY 04/05/2024 8:55 PM MANAGER HOSPITALITY Narrative [facility] DELGADILLO ([place]) - 04/06/2024 12:42 PM MANAGER HOSPITALITY Bill to [facility] - 1520 Patient is employed by/enrolled at:->[facility] us Nelson Marshall MD LAB MICROBIOLOGY - GENERAL OR DERABLES Final Result CATALINO LEONA ([place]) 1 [facility] Department [place] [address] [facility] * Pap with reflex to High Risk HPV (11/03/2022 7:43 AM CDT) Thin prep (Pap test) 11/03/2022 7:43 AM CDT 11/04/2022 7:43 AM CDT Narrative PATHOLOGY CH - 11/06/2022 3:19 PM CDT [facility] Department of Pathology [address] [place] [id number] Final Report Note to Patients: This [...] the details. Patient Name: SAYRA HSU Address: [address] [place] [address] Gender: F : 2000 (Age: 22) Service: Location: N : [id number] Hospital #: [id number] Patient Type: SPECIMEN Taken: 11/03/2022 Received: 11/04/2022 Accessioned:: 11/05/2022 Reported: 11/06/2022 Physician(s): Carissa Caraballo D.O. Diagnosis: SOURCE OF SPECIMEN Imaged Thinprep Pap Test w/ Reflex HPV - Firewall Administrator Cytologic Material: STATEMENT OF ADEQUACY - Satisfactory for evaluation; endocervical/transformation zone component present GENERAL CATEGORIZATION: - Negative for intraepithelial lesion or malignancy CIERRA Benitez(ASCP) Report Electronically Reviewed and Signed Out By CIERRA Benitez(ASCP) 11/06/2022 15:19:04Specimen(s) Received: A: Imaged Thinprep Pap Test w/ Reflex HPV - Firewall Administrator Cytologic Material Clinical History: Last Menstrual Period: [...] determined by the Surgical Pathology Department at [facility] as part of an ongoing food quality tester program and in compliance with federally mandated [...] characteristics determined by the Surgical Pathology Department [facility]. It has not been cleared or approved by the U. S. Food and Drug Administration. Mckenna Rios DO LAB CYTOLOGY ORDERABLES Final Result PATHOLOGY [address] [place] [address] from Last 3 Months or Most Recently Relevant to Health Maintenance Insurance [facility] Advance Directives For more information, please contact: [phone] * Full Code (Latest Code Status on File) Date Activated Date Inactivated Comments 06/29/2021 8:18 PM 07/01/2021 4:43 PM * Full Code Date Activated Date Inactivated Comments 06/29/2021 9:49 AM 06/29/2021 8:18 PM Full CPR in case of cardiopulmonary arrest * Full Code Date Activated Date Inactivated Comments 11/01/2017 8:56 AM 11/02/2017 11:45 PM Care Teams Professor Of Poultry Science Relationship Specialty Start Date End Date Abelino Stover MD [address] [place] [address] PCP - General Family Medicine 11/19/21 Gabriel Cano MD [address] [place] [address] Greenskeeper Head Obstetrics and Gynecology 06/29/21 Mckenna Rios DO [address] [place] [address] Consulting Physician Obstetrics and Gynecology 11/04/22
--- OUTSIDE RECORDS SUMMARY | 2024-08-01 01:35 | XMS_ITS | Clinical Summary ---
Author Organization [facility] Address [address] [place] [address] Care Team Providers Care Supervisor Brooder Farm Name Role Phone Fanny Gilmore APRN-RN DIABETES Primary Care Provider Source Comments [facility],non-owned Affiliates and Associated Physician Practices is amultiple site organization consisting of ambulatory clinics and hospital sitesin [place], [place], [place] and [place]. This disclosure is being madepursuant to the Care Everywhere program and may not contain all information available regarding this patient. Last updated 18.[facility] Allergies Active Allergy Reactions Criticality [...] 07/06/2019 Assessment & Plan (07/06/2019 3:48 PM METAPHYSICIST): Maternal Medicine recommendations: 1. orders given for [...] delivery, and and demise. The incidence of mcfp health conditions and neurodevelopmental delay can also [...] testing Assessment & Plan (07/06/2019 3:46 PM METAPHYSICIST): Early onset growth restriction. Maternal Medicine recommendations: [...] limits Assessment & Plan (07/06/2019 5:49 PM METAPHYSICIST): Patient denies any seizure like activity this . Last seizure >1 year ago Reiterated today that she can start Keppra now that it cannot cause anomaly, as previously recommended by Dr. Colmenares at previous visit. Risks of seizures during reviewed. [facility] Plan: Nursing assisting in identifying patient's previous neurologist for follow up appointment in [place]. I have encouraged her compliance with this appointment. Echogenic bowel of fetus 05/25/2019 Overview (08/03/2019): CF screen drawn at primary dry plasterer's office--still pending from primary OB office as of 06/20/19. Seq 1-Neg Cf DNA screen, low risk Assessment & Plan (07/06/2019 3:45 PM METAPHYSICIST): Ultrasound today with 1 area that is as echogenic as bone. Maternal Medicine recommendations: 1. please submit a copy of the cystic fibrosis carrier screening result for review Assessment & Plan (05/25/2019 8:28 PM METAPHYSICIST): Requesting a copy of the CF screen results from the referring dry plasterer Warrants re-evaluation by ultrasound at next exam to determine whether or not this was a false-positive finding Family history of hypertension 05/25/2019 Assessment & Plan (05/25/2019 8:26 PM METAPHYSICIST): Aspirin prophylaxis Sayra appears to be at [...] polydactyly Assessment & Plan (07/06/2019 5:43 PM METAPHYSICIST): Asymptomatic today for labor concerns. Cervical length to follow in formal ultrasound report. Maternal Medicine Recommendations: 1. Serial cervical length measurements from 16-24 weeks with consideration for cerclage should cervical length < 2.5 cm be identified 2. I encouraged valuation of abnormal vaginal discharge by the primary dry plasterer with treatment as indicated Assessment & Plan (05/25/2019 8:29 PM METAPHYSICIST): Records received after consultation. Patient was reportedly 22 weeks and five days presented with cramping and vaginal bleeding. Initial white blood cell count 12.6, H&H 10.8/31.4, platelet 175. CMP unremarkable. Rh positive. antibody screen negative. Had witnessed pre labor rupture of membranes. Had cord prolapse observed. Discussion between primary OB and [facility]. Went on to have spontaneous delivery of the body with delayed delivery of the head. Delivered a stillborn (weight 322 g). Placenta pathology without any significant findings (no significant inflammation). In women with previous spontaneous , recurrence risk is 25-30%. We discussed that the standard intervention for many years has been 17 OH PC supplementation. Administration of 72-ytdxfux-urhnqyvdkrqk caproate (17-OHPC) weekly, starting from 16-18 weeks to 36 weeks has shown to reduce the risk of premature delivery. 17-OHPC has been found to decrease the risk of delivery at 37, 35, and 32 weeks is high risk patients. The mcfp data on the impact of progesterone exposure [...] of abnormal vaginal discharge by the primary dry plasterer with treatment as indicated Prematurity 2000 Overview (05/25/2019): Was born several months early. Prematurity complications reported: had cardiac surgery, required oxygen for two years, epilepsy, poor vision Assessment & Plan (05/25/2019 8:24 PM METAPHYSICIST): I discussed the history of significant prematurity. It is unclear whether or not that history alone is its own risk factor for delivery. Requesting records Heart abnormality Assessment & Plan (07/06/2019 5:46 PM METAPHYSICIST): NYHA class 1/2 symptoms. Previously requesting medical records to identify the congenital anomaly, records requested from [facility] and have not been obtained. Patient denies current chest pain, persistent palpitations. Reports SOB relieved with Albuterol use. [facility] Plan: echocardiogram ordered. Consider maternal cardiology consult if patient becomes symptomatic or if we obtain records. Assessment & Plan (05/25/2019 8:32 PM METAPHYSICIST): NYHA class 1/2 symptoms. Requesting medical records to identify the congenital anomaly--patient to contact her mother and communicate the name of the hospital where she was born to our office. We discussed that there may be recommendation for echocardiogram as well as for a maternal echocardiogram to be performed. Anxiety and depression Assessment & Plan (07/06/2019 5:51 PM METAPHYSICIST): Reports coping well currently without significant anxiety or depressive symptoms. [facility] Plan: Ongoing close evaluation for mood changes during and PP period. Assessment & Plan (05/25/2019 8:25 PM METAPHYSICIST): Mood appropriate today. At risk for mood deterioration during the and . Maternal- meds recommendations: 1. Re-evaluate mood at visits 2. Would benefit from Estimated Date of Delivery Comme nts Yes 08/31/2024 Based on Ultraso und Resolved Problems Problem Noted Date Diagnosed Date Resolved Date Flank pain 07/06/2019 07/06/2019 Assessment & Plan (07/06/2019 5:50 PM METAPHYSICIST): Flank pain with urinary frequency. Sent with order for UA and urine culture. Encounters Date Type Department Care Team Description 07/27/2024 Telephone [facility] Women's Health Maternal & Care [address] [place] [phone] Mary Ellen Moeller RN Future Appointment (Patient called in to ask if she needed FU appt with [facility]. Spoke with Danielle at [facility] to see if we need to follow. ) 07/25/2024 1:45 PM CDT - 07/25/2024 11:59 PM CDT Hospital Encounter [facility] [address] [place] [address] Bam Camp MD Discharge Disposition: Home or Self Care 05/20/2024 Orders Only [facility] [address] [place] [phone] Mary Ellen Moeller RN 05/06/2024 Telephone [facility] [address] [place] [address] Edith Hdez, RN Scheduling from Last 3 [...] Comments Blood Pressure 103/62 04/06/2024 1:42 PM METAPHYSICIST Pulse 100 04/06/2024 1:42 PM METAPHYSICIST Temperature 36.6 C (97.8 F) 10/18/2019 2:09 PM CDT Respiratory Rate 16 09/20/2019 2:15 PM CDT Oxygen Saturation 100% 09/20/2019 2:15 PM CDT Inhaled Oxygen Concentration - - Weight 59.9 kg (132 lb) 04/06/2024 1:42 PM METAPHYSICIST Height 157.5 cm (5' 2 ) 04/06/2024 1:42 PM METAPHYSICIST Body Mass Index 24.14 04/06/2024 1:42 PM METAPHYSICIST Plan of Treatment Health Maintenance Due Date [...] History ====== OB History 5. Para 1 [id number] 1. miscarriage 2017 2. miscarriage (< 20 [...] 4 lb 13 oz EFW by Hadlock ([id number]) Head / Face / Neck Biometry: CM [...] Thorax RVOT view. LVOT view. 3-vessel view. 6-vghcjr-alwifak view. Situs. Bicaval view. Great vessels. Right [...] ago. She was advised to go to [facility] to rule out labor. Coding ====== Procedures 61038: US Preg Uterus Detailed [facility] PACS Anatomical Region Laterality Modality Other 07/25/2024 1:53 PM CDT R Milan Suarez MD [facility] ORDERABLES from Last 3 Months Care Teams Supervisor [employer]oder Farm Relationship Specialty Start Date End Date Fanny Gilmore, DRY LUMBER GRADER-RN DIABETES [address] [place] [address] PCP - General 10/27/19
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
--- OUTSIDE RECORDS SUMMARY | 2024-08-01 01:35 | XMS_ITS | Encounter Summary ---
Author Organization [facility] Address [address] [place] [address] Phone Care Team Providers Care Benefits Coordinator Name Role Phone Provider, None Primary Care Provider Farhat Tejada MD Unavailable Encounter Details Date Type Department Care Team (Late st Contact Info) Description 02/06/2021 Lab Requisition [facility] Laboratory Services [address] [place] [address] Kami Falcon, CALCULUS PROFESSOR, TRANSPORT TANK TECHNICIAN [address] [place] [address] Encounter for pre-employment examination Social [...] 02/08/2021 1:14 PM CDT [facility] TB ANTIGEN 1 0.00 <0.35 IU/mL 02/08/2021 1:14 PM CDT [facility] TB ANTIGEN 2 0.00 <0.35 IU/mL 02/08/2021 1:14 PM CDT [facility] MITOGEN CONTROL >10.00 >0.49 IU/mL 02/09/20 1:14 PM CDT [facility] INTEPRETATION TB NEGATIVE NEGATIVE, NEGATIVE (TB antigen response less than 25% of internal negative control value) 02/08/2021 1:14 PM CDT [facility] Comment:No immune response t o Mycobacterium tuberculosis antigens was noted. M. tuberculosis infection unlikely. Blood Venipuncture / Unknown 02/06/2021 11:20 AM CDT 02/06/2021 12:42 PM CDT Narrative [facility] - 02/08/2021 1:14 PM CDT A [...] ORDERABLES F inal Result [facility] [address] [place] [address], documented in this encounter Visit Diagnoses Diagnosis Encounter for pre-employment examination Health examination of defined subpopulation documented in this encounter Additional Health Concerns Infection Onset Date Last Indicated Resolved Time COVID - 19 11/22/2021 11/22/2021 12/02/2021 12:1 6 AM CDT documented as of this encounter Care Teams Benefits Coordinator Relationship Specialty Start Date End Date Provider, None [place] PCP - General 01/21/16 Farhat Murillo MD #[address] [address] General Surgery 10/22/16 documented as of this encounter
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
--- OUTSIDE RECORDS SUMMARY | 2024-08-01 01:35 | XMS_ITS | Data Portability ---
Author Organization [facility] Address [address] [place] [address] [place] [address] Assessment Encounter Date Assessment Date Assessment LastModified by Organization Details LastModified Time 07/18/2024 07/18/2024 Patient is ___weeks . Discussed plan. [email or web address] Not available 07/18/2024 17:44:51 07/29/2024 07/29/2024 Patient is 35___weeks . Discussed plan. [email or web address] Not available 07/29/2024 13:01:50 Plan of Treatment Reminders Order Date Submit Date Provider Last Modified By Organization Details Last Modified Time Details Appointments None recorded. Lab None recorded. Referral None recorded. Procedures None recorded. Surgeries None recorded. Imaging non-stress test 2024 025 [email or web address] [address], [address], [place], [address], 16:31:02 US, obstetric, follow-up 2024 025 [email or web address] [address], [address], [place], [address], 21:27:25 US, obstetric, biophysical profile + non-stress test 2024 025 [email or web address] [address], [address], [place], [address], 21:27:25 US, doppler, umbilical artery velocimetry 2024 025 [email or web address] [place], [address], [address], [place], [address], 21:27:25 US, obstetric, 2nd or 3rd trimester 2024 025 [email or web address] [place], [address], [address], [place], [address], 22:39:45 Medication Orders Valtrex 500 mg tablet 2024 025 [email or web address] [id number] [id number], [address] [place], [place], [id number], 13:02:13 Patient TargetsNo targets recorded. Patient InstructionsNo instructions recorded. Reason for Referral None Reported. Results Created Date Observation Date Name Description Value Unit Range Abnormal Flag Note LastModifiedBy Organization Detail LastModifiedTime 07/05/1907/04/2024 US, obste tric, 2nd or 3rd trime ster No observ ation record ed. [email or web address] [place] [address], [place], [address], 07/04/2024 18:43:20 07/05/19 25 07/04/2024 US, obste tric, follo w-up No observ ation record ed. [email or web address] [address], [place], [address], 07/19/2024 08:48:32 07/19/1907/18/2024 US, obste tric, follo w-up No observ ation record ed. [email or web address] [place] [address], [place], [address], 07/18/2024 17:51:40 07/19/19 25 07/18/2024 US, obste tric, bioph ysica l profi le + non-s tress test No observ ation record ed. [email or web address] [place] [address], [place], [address], 07/18/2024 17:51:52 07/19/19 25 07/18/2024 US, doppl er, umbil ical arter y veloc imetr y No observ ation record ed. [email or web address] [place] [address], [place], [address], 07/18/2024 17:52:05 07/19/19 25 07/18/2024 US, obste tric, follo w-up No observ ation record ed. [email or web address] [address], [place], [address], 07/19/2024 16:53:10 07/26/19 25 07/25/2024 US, obste tric, follo w-up No observ ation record ed. [email or web address] [facility] [address] [place], [address], 07/25/2024 17:58:31 07/26/19 25 07/25/2024 US, obste tric, follo w-up No observ ation record ed. [email or web address] [facility] [address] [facility], [place], [address], 07/28/2024 18:01:46 07/26/19 25 07/25/2024 US, obste tric, bioph ysica l profi le + non-s tress test No observ ation record ed. [facility] [address] [facility], [place], [address], 07/27/2024 10:40:41 07/30/19 25 07/29/2024 non-s tress test No observ ation record ed. [email or web address] [place] [address], [place], [address], 07/29/2024 16:30:24 08/01/19 25 07/31/2024 imagi ng/di agnos tic resul t No observ ation record ed. [email or web address] [address], [place], [address], 07/31/2024 09:44:51 08/01/19 25 07/31/2024 imagi ng/di agnos tic resul t No observ ation record ed. [address] [facility] [address], [place], [address], 07/31/2024 09:44:51 Result Notes None recorded. Problems Name Problem SNOMED Code Status Onset Date Resolution Date Notes Provider Name and Address Organization Details Recorded Time demise from miscarri age 2484776 Active 2017 labor Vida bryant, [facility] 0 10:01:09 Pregnanc y 14134485 Completed 201905/10/2020 Vida bryant, [facility] 4 10:46:28 Pregnanc y 09256950 Active 2023 Vida bryant, [facility] 4 10:46:28 Seizure disorder 536866720 Active restarte blayne berger has mfm appt Fanny Gilmore CNM [address], [place], [address], [facility] 4 10:58:49 Herpes simplex 60339150 Active valtrex daily increase to bid at 36 weeks tx Valacycl ovir x 7 days ER [place] Dimas's Palsy Danielle bryant, [facility] 5 14:55:23 Past pregnanc y history of stillbir th 220459016 Active 19 weeks Fanny Gilmore CNM [address], [place], [address], [facility] 4 10:58:01 Past pregnanc y history of growth restrict ion 417858483 Active Fanny Gilmore, TE[place] [address], [place], [address], [facility] 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 5 16:32:35 Placenta circumva llata 1369284 Active Danielle Morris manny, [facility] 5 16:32:35 growth restrict ion 00469432 Active Referral faxed to [facility] 07/19[facility] eduled [facility] e - 07/25 1:45PM Level II us/doppl er/bpp/n st resolved schedule weekly BPP/DOPP LER/NST/ OB Danielle Morris manny, [facility] 5 14:11:42 growth restrict ion 26724499 Active Referral faxed to [facility] 07/19[facility] 1:45[facility] Level II us/doppl er/bpp/n st resolved schedule weekly BPP/DOPP LER/NST/ OB Danielle Morris manny, [facility] 5 14:11:42 growth restrict ion 29853933 Completed 2019 [facility] - Weekly BPP/dopp lers and NSTs on Tuesdays until 11/01/19 Jeff Jean Baptiste null, [facility] 1 17:13:41 Herpes simplex 24291977 Active valtrex daily increase to bid at 36 weeks tx Valacycl ovir x 7 days ER [place] Dimas's Palsy Danielle Morris manny, [facility] 5 14:55:23 Herpes simplex 63479520 Completed 2019 Needs treatmen t at 34 weeks per MFM Jeff Jean Baptiste null, [facility] 1 17:13:41 Seizure disorder 287646319 Active restarte blayne berger has mfm appt Fanny Gilmore CNM [address], [place], [address], [place] [facility] 4 10:58:49 Chlamydi al infectio n 110162450 Completed 201909/01/2019 JOSE 32 WEEKS Pepperalonzo Louisizzle null, [facility] 0 16:21:05 Problem Notes None recorded. Procedures Surgical History Date Name Laterality Status Provider Name and Address Organization Details Recorded Time 02/08/2024 Date of Last Pap Smear completed Vida Marino [facility] 02/08/2024 10:44:17 Imaging Results Imaging Date Name Status LastModified by Organiz ation Details LastModified Time 07/04/2024 US, obstetric, 2nd or 3rd trimester completed [email or web address] [place] [address], [place], [address], 07/04/2024 18:43:20 07/04/2024 US, obstetric, follow-up completed [address] [address], [place], [address], 07/19/2024 08:48:32 07/18/2024 US, obstetric, follow-up completed [email or web address] [place] [address] [address], [place], [address], 07/18/2024 17:51:40 07/18/2024 US, obstetric, biophysical profile + non-stress test completed [email or web address] [place] [address], [place], [address], 07/18/2024 17:51:52 07/18/2024 US, doppler, umbilical artery velocimetry completed [email or web address] [place] [address], [place], [address], 07/18/2024 17:52:05 07/18/2024 US, obstetric, follow-up completed [email or web address] [address], [place], [address], 07/19/2024 16:53:10 07/25/2024 US, obstetric, follow-up completed [facility] [address], [place], [address], 07/25/2024 17:58:31 07/25/2024 US, obstetric, follow-up completed [email or web address] [facility] [address] [facility], [place], [address], 07/28/2024 18:01:46 07/25/2024 US, obstetric, biophysical profile + non-stress test completed [email or web address] [facility] [address] [facility], [place], [address], 07/27/2024 10:40:41 07/29/2024 non-stress test completed [email or web address] [place] [address], [place], [address], 07/29/2024 16:30:24 07/31/2024 imaging/diagnos tic result active [address], [address], 07/31/2024 09:44:51 07/31/2024 imaging/diagnos tic result active [address], [address], 07/31/2024 09:44:51 Procedure Notes None recorded. Medical Equipment None Reported. Allergies Allergen ID Allergen Name Allergen Category Reaction Reaction Severity Criticality Documentation Date Start Date Code Code System Note Provider Name and Address Organization Details Recorded Time 331 morphine medicatio n Not available Not available Not available 08/26/2019 7052 RxNorm Vida Marino null, [facility] 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 07/18/2024 17:45:23 Date Recorded Body height Body mass index (BMI) Body weight Body height Body mass index (BMI) Body weight Systolic blood pressure Diastolic blood pressure Systolic blood pressure Diastolic blood pressure Provider Name and Address Organization Details Last Updated DateTime 5 158.75 cm 26.5 kg/m2 86645.0 8 g 158.75 cm 26.5 kg/m2 05676.0 8 g 104 mm[Hg] 68 mm[Hg] 104 mm[Hg] 68 mm[Hg] Vida Marino [facility] 16:28:31 Social History Question Answer Notes LastModified by Organizat ion Details LastModified Time Tobacco Smoking Status Former Smoker Vida Marino [facility] 02/08/2024 10:46:27 What Is Your Level Of Alcohol Consumption? None [email or web address] Information not available 08/26/2019 If You Are , What Was Your Level Of Alcohol Consumption Prior To ? Occasional Information not available 02/08/2024 Are You Blind Or Do You Have Difficulty Seeing? No [email or web address] Information not available 02/08/2024 What Is Your Level Of Caffeine Consumption? Moderate Information not available 02/08/2024 In The 14 Days Before Symptom Onset, Have You Had Close Contact With A Laboratory-confir med COVID-19 While That Case Was Ill? No Information not available 02/08/2024 In The 14 Days Before Symptom Onset, Have You Had Close Contact With A Person Who Is Under Investigation For COVID-19 While That Person Was Ill? No [email or web address] Information not available 02/08/2024 Have You Been To An Area Known To Be High Risk For COVID-19? No [email or web address] Information not available 02/08/2024 Are You Deaf Or Do You Have Serious Difficulty Hearing? No [email or web address] Information not available 02/08/2024 What Type Of Diet Are You Following? REGULAR Information not available 02/08/2024 Do You Or Have You Ever Used E-cigarettes Or Vape? Former User Of Electronic Cigarettes [email or web address] Information not available 02/08/2024 What Was The Date Of Your Most Recent Tobacco Screening? 05/13/2024 [email or web address] Information not available 05/13/2024 Do You Use Your Seat Belt Or Car Seat Routinely? Yes [email or web address] Information not available 02/08/2024 Do You Have Smoke And Carbon Monoxide Detectors In Your Home? Yes [email or web address] Information not available 02/08/2024 Do You Or Have You Ever Used Smokeless Tobacco? Never Used Smokeless Tobacco [email or web address] Information not available 11/22/2019 How Much Tobacco Do You Smoke? No [email or web address] Information not available 11/22/2019 Smoking Pre- No [email or web address] Information not available 08/26/2019 Do You Feel Stressed (tense, Restless, Nervous, Or Anxious, Or Unable To Sleep At Night)? [id number] [email or web address] Information not available 02/08/2024 Do You Use Any Illicit Or Recreational Drugs? No [email or web address] Information not available 02/08/2024 Do You Use Sunscreen Routinely? Yes [email or web address] Information not available 02/08/2024 Do You Or Have You Ever Used Any Other Forms Of Tobacco Or Nicotine? Yes [email or web address] Information not available 02/08/2024 Sex: Unknown Functional Status Question Answer Note LastModified by Organizat ion Details LastModified Time Do you have difficulty walking or climbing stairs? No [email or web address] Information not available 02/08/2024 Are you able to walk? YESWOREST [email or web address] Information not available 02/08/2024 Are you able to care for yourself? Yes [email or web address] Information not available 02/08/2024 Do you have difficulty dressing or bathing? No [email or web address] Information not available 02/08/2024 What is your exercise level? Occasional [email or web address] Information not available 08/26/2019 Mental Status None recorded. Family History Relationship Description Onset Age of this Age Resolved Age Notes LastModified by Organization Details LastModified Time Mother Malignant tumor of breast [email or web address] Not available 08/25 18:21:21 Mother Hypertensive disorder [email or web address] Not available 08/25 18:21:32 Notes:Mother: Cancer, breast , Hypertension Medical History Condition Response Other Y Blood Transfusion N Dermatologic Disorders Y Gestational Diabetes N Anxiety Disorder Y Autoimmune disease N Arthritis N Polyps N Infertility N Acid Reflux (GERD) N Cancer N Varicosities N Stroke N Neurologic/Epilepsy Y Fibromyalgia N Headaches N Kidney Disease N Heart Problems N Kidney or Bladder Problems N Eating Disorder N Art (IVF or FET) N Hepatitis/Liver Disease N No Past Medical History Y Urinary Tract Infection N Asthma Y Trauma/Violence N Thrombophilias N Allergies (Food, seasonal, environmental ) Y Breast Cancer N Drug/Latex Allergies/Reactions Y Lung Disease N Defects or Inherited Disease N Breast Problem Y Hematologic disorders N Anesthesia Complications N History of STI Y Deep Vein Thrombosis N Polycystic ovary syndrome N History of abnormal pap N Endometriosis N High Cholesterol N Thyroid Problems N GI Problems N Anemia N Psychiatric Illness N Ovarian Cancer N Diabetes N Pulmonary (TB, Asthma) N Eczema Y Abuse/Domestic Violence N Depression/ depression Y Heart Disease N Pre-Eclampsia N Hypertension N Osteoporosis N Gynecological History Statement/Question Response Date of [...] ICD10 Code Diagnosis Note [address] [place] [address] [address] 08/11/2019 11:38:34 08/11/2019 16:27:14 Normal 98274061 Z34.93 [address] [facility] [facility] [address],[place] [address] 08/26/2019 16:39:32 08/26/2019 17:16:10 Routine care 824136036 Z34.[address] [place] [address],[place] [address] 08/30/2019 14:22:12 08/31/2019 09:13:38 Normal 64219272 Z34.93 3021 Kevin Suarez MD [place] [address],[place] [address] 09/05/2019 16:49:00 09/06/2019 09:48:15 Routine care 958733008 Z34.83 3811 Kevin Suarez MD [place] [address],[place] [address] 09/12/2019 13:59:45 09/12/2019 14:41:35 Routine care 686467397 Z34.83 6219 [facility] [address],[place] [address] 10/04/2019 11:44:05 10/26/2019 09:36:53 Routine care 852528865 Z34.03 7150 [facility] [address],[place] [address] 10/11/2019 13:02:46 10/15/2019 19:45:28 Routine care 420416282 Z34.03 [address] [facility] [address],[place] [address] 10/18/2019 14:58:56 10/18/2019 15:40:02 Normal 61057860 Z34.93 11049 [facility] [address],[place] [address] 11/22/2019 12:58:04 11/22/2019 14:01:33 Contraception care management 146884520 Z30.9 850202 [facility] [address],[place] [address] 01/18/2024 16:47:45 01/18/2024 17:40:47 with uncertain dates 069527722 Z34.91 N91.2 Z32.01 Dating u/s [id number] [facility] [address],[place] [address] 02/08/2024 09:50:47 02/08/2024 10:43:23 test positive 255620155 Z32.01 719866 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 Z31.430 Exposure to lead 6296883 111 4161553 Z77.011 Seizure disorder 3379880 02 G40.909 restart seizure medication , seizure precaution sMFM to be scheduled [id number] Fanny Gilmore CNM [place] [address],[place] [address] 02/24/2024 09:59:03 02/24/2024 11:05:10 Gestation period, 12 weeks 12355628 Z3A.12 mfm consult Routine an tenatal care 248599520 Z34.03 Bacterial vaginosis 4197 24877 N76.0 pecan picker flagyl at pharmacy [id number] Fanny Gilmore CNM [place] [address],[place] [address] 05/13/2024 13:28:29 05/13/2024 14:08:51 Gestation period, 24 weeks 402070872 Z3A.24 continue vitamin Upper resp iratory infection 32409723 J06.9 [id number] [facility] [address],[place] [address] 07/04/2024 17:39:34 07/04/2024 18:44:12 screening for malformation 335962929 Z36.3 Z3A.31 504233 [facility] [address],[place] [address] 07/18/2024 17:00:09 07/18/2024 17:48:39 Small for gestational age fetus 252350612 O36.5930 O43.113 O09.33 Z3A.33 363007 Kevin Suarez MD [place] [address],[place] [address] 07/18/2024 17:18:09 07/19/2024 08:17:22 Routine care 314659831 Z34.83 191497 [facility] [address],[place] [address] 07/29/2024 12:33:42 07/29/2024 13:13:39 Gestation period, 35 weeks 44433804 Z3A.35 Herpes simplex 39005325 B00.9 485700 Vida Marino [place] [address],[place] [address] 07/29/2024 13:29:55 07/29/2024 16:31:07 Past history of intrauterine 8662724232 6287943 Z87.59 Health Concerns Section Related Observation LastModified by Organization Detai ls LastModified Time None Recorded Concern Status LastModified by Organization Details LastModified Time None Recorded Advance Directives Directive None Recorded Payers Encounter Date Sequence Insurance Name Policy Number Policy Delong Covered Member ID Delong Member ID Guarantor Name 07/04/2024 1 [employer] [facility] [place] [id number] Sayra Hsu [id number] Sayra Hsu 07/18/2024 1 [facility] (MEDICAID HMO) [id number] Sayra Hsu [id number] Sayra Hsu 07/18/2024 1 [employer] [place] [id number] Sayra Hsu [id number] Sayra Hsu 07/29/2024 1 [facility] (MEDICAID HMO) [id number] Sayra Hsu [id number] Sayra Hsu 07/29/2024 1 [employer] [place] [id number] 0003 Sayra Hsu [id number] Sayra Hsu OBGyn Episode Ob Episode Information Episode Created Date Number of Fetuses Patient Bloodtype Patient rh Status Prepregnancy Weight lbs Domestic Partner Domestic Partner Phone Father Name Journeyman Welder Status 08/11/19 20 1 B Positive 122 CLOSED Fetus Data First Name Last Name Admitted to NICU Weight (g) Sex Living Outcome Pediatric Complications Fetus ID Race Codes Race Delivery Type 2749.90 15 M true Full Term growth restriction 186 Vaginal Delivery Problems Problem Notes Problem Name Start Date End Date Resolution Snomed Code Not e growth restriction 08/22/2019 53655006 [facility] - Weekly BPP/dopplers and NSTs on Tuesdays until 11/01/19 Herpes simplex 08/22/2019 95876155 Need s treatment at 34 weeks per [...] Weight in lbs Pre/Post Dialysis Refused Weight 140.867303461770 BP Diastolic BP Location Tested BP Systolic BP Type 74 R arm 113 sitting Fetus Heart Rate Present A 135 Fetus Movement A Yes Comments GCT today. She is supposed t o have weekly BPP/dopplers per [facility] and is scheduled w/ [facility] in [place]. Expecting baby boy wants circumcision and plans to breastfeed. Flowsheet Date 08/26/2019 Joya Score Blood Edema Fundus Height Fundus Units Glucose Ketones Leukocytes Nitrite Labor Signs Protein Cervic Dilation Cervic Effacement Cervic Station neg none trace Type Weight in lbs Pre/Post Dialysis Refused Weight 144.780057112814 BP Diastolic BP Location Tested BP Systolic [...] Weight in lbs Pre/Post Dialysis Refused Weight 146.580975753306 BP Diastolic BP Location Tested BP Systolic BP Type 64 105 Fetus Heart Rate Present A 135 Fetus Movement A Yes Comments Glucose negative She has occ asional ctx usually 2-3 per hour at most. No bleeding. c/o discharge, took meds for BV about 2 weeks ago. Check Affirm today. Declines STD testing. Cervix tight 05/23/3/soft/posterior. I advised rest/fluids and reviewed PTL precautions in detail. She sees [facility] weekly Flowsheet Date 05/20/2019 Joya Score Blood Edema Fundus Height Fundus Units Glucose Ketones Leukocytes Nitrite Labor Signs Protein Cervic Dilation Cervic Effacement Cervic Station 1+ trace Type Weight in lbs Pre/Post Dialysis Refused Weight 122.006074289528 BP Diastolic BP Location Tested BP Systolic [...] She is going to discuss that with [facility] Flowsheet Date 06/17/2019 Joya Score Blood Edema Fundus Height Fundus Units Glucose Ketones Leukocytes Nitrite Labor Signs Protein Cervic Dilation Cervic Effacement Cervic Station Type Weight in lbs Pre/Post Dialysis Refused Weight 122.478884842374 BP Diastolic BP Location Tested BP Systolic BP Type Fetus Heart Rate Present Fetus Movement A No Comments Flowsheet Date 07/14/2019 Joya Score Blood Edema Fundus Height Fundus Units Glucose Ketones Leukocytes Nitrite Labor Signs Protein Cervic Dilation Cervic Effacement Cervic Station none 24 1+ Type Weight in lbs Pre/Post Dialysis Refused Weight 140.023509768059 BP Diastolic BP Location Tested BP Systolic [...] Weight in lbs Pre/Post Dialysis Refused Weight 147.252972469111 BP Diastolic BP Location Tested BP Systolic [...] Weight in lbs Pre/Post Dialysis Refused Weight 147.302447359588 BP Diastolic BP Location Tested BP Systolic BP Type 69 107 Fetus Heart Rate Present A 145 Fetus Movement A Yes Comments Flowsheet Date 10/04/2019 Joya Score Blood Edema Fundus Height Fundus Units Glucose Ketones Leukocytes Nitrite Labor Signs Protein Cervic Dilation Cervic Effacement Cervic Station 28 2cm 80% Type Weight in lbs Pre/Post Dialysis Refused Weight 149.379433658650 BP Diastolic BP Location Tested BP Systolic [...] Weight in lbs Pre/Post Dialysis Refused Weight 151.363866570404 BP Diastolic BP Location Tested BP Systolic [...] Weight in lbs Pre/Post Dialysis Refused Weight 148.743949789490 BP Diastolic BP Location Tested BP Systolic BP Type 72 R arm 106 sitting Fetus Heart Rate Present A 130 Fetus Movement A Yes Comments PT. WILL LEAVE URINE SAMPLE AFTER APPT. COLEEN RANDLE Cervix 60/-2. Wants 39 week induction and Fanny Gilmore to deliver so schedule next week Flowsheet Date 11/22/2019 Joya Score Blood Edema Fundus Height Fundus Units Glucose Ketones Leukocytes Nitrite Labor Signs Protein Cervic Dilation Cervic Effacement Cervic Station Type Weight in lbs Pre/Post Dialysis Refused Weight 127.664706830781 BP Diastolic BP Location Tested BP Systolic [...] At Estimated Date of Delivery false Thalassemia (Syriac, Mongolian, Mediterranean, Or Background): MCV < 80 false Neural Tube Defect (Meningom yelocele, Spina Bifida, Or Anencephaly) false Congenital Heart Defect false Down Syndrome false Markus-Sachs (eg, Mormonism, Cajun, Venezuelan-[place]) f alse Piedad Disease false Sickle Cell Disease Or Trait () false Hemophilia Or Other Blood Disorders false Muscular Dystrophy false Cystic Fibrosis false Jerusalem's Chorea false Intellectual Disability/Autism false If Yes, [...] Complications Tubal Sterilization Discharge Date Comments [address] [facility] idural 38.6 false Discharge Information Feeding Method Contraceptive Method Maternal HG B and HCT Levels Ob Episode Information Episode Created Date Number of Fetuses Patient Bloodtype Patient rh Status Prepregnancy Weight lbs Domestic Partner Domestic Partner Phone Father Name Journeyman Welder Status 08/26/19 20 1 CLOSED Fetus Data [...] Domestic Partner Domestic Partner Phone Father Name Journeyman Welder Status 11/08/19 20 1 DELETED Satnam Calculation [...] Domestic Partner Domestic Partner Phone Father Name Journeyman Welder Status 02/08/20 24 1 CLOSED Fetus Data First Name Last Name Admitted to NICU Weight (g) Sex Living Outcome Pediatric Complications Fetus ID Race Codes Race Delivery Type , Spontane ous [id number] Satnam Calculation Initial Satnam Date Initial Exam [...] Domestic Partner Domestic Partner Phone Father Name Journeyman Welder Status 02/24/20 24 1 B Positive 124 OPEN Fetus Data First Name Last Name Admitted to NICU Weight (g) Sex Living Outcome Pediatric Complications Fetus ID Race Codes Race Delivery Type [id number] Problems Problem Notes 04/06/24 1pm u/s and ovNo 1HR GTT completed - Start checking bs QID Problem Name Start Date End Date Resolution Snomed Code Not e Past history of growth restriction 101182615 Past history of stillbirth 573253445 19 weeks Seizure disorder [id number] res xochitl berger has m appt Herpes simplex [id number] valtr ex daily increase to bid at 36 weekstx Valacyclovir x 7 days ER [facility] Dimas's Palsy Placenta circumvallata [id number] growth restriction [id number] Referral faxed to [facility] 07/19-Scheduled [facility] - 07/25 1:45PM Level II us/doppler/bpp/nst resolved schedule weekly BPP/DOPPLER/NST/OB Satnam Calculation Initial Satnam Date [...] Weight in lbs Pre/Post Dialysis Refused Weight 126.089665339487 BP Diastolic BP Location Tested BP Systolic [...] Type Weight in lbs Pre/Post Dialysis Refused 139.012947405910 BP Diastolic BP Location Tested BP Systolic [...] Type Weight in lbs Pre/Post Dialysis Refused 147.164177715294 BP Diastolic BP Location Tested BP Systolic BP Type 67 L arm 110 sitting Fetus Heart Rate Present A 145 Fetus Movement A Yes Comments no complaints, no problems, routine care, no contractions, no vaginal bleeding, no loss of fluid, no cramping growth restriction, to see MFM soon as possible. Patient has a history of noncompliance. She was strongly encouraged to go to [facility]. She understands that there is a risk of stillbirth here. Flowsheet Date 07/29/2024 Joya Score Blood Edema Fundus Height Fundus Units Glucose Ketones Leukocytes Nitrite Labor Signs Protein Cervic Dilation Cervic Effacement Cervic Station neg none 2cm 60% -2 Type Weight in lbs Pre/Post Dialysis Refused Weight 147.231257565462 BP Diastolic BP Location Tested BP Systolic [...] Weight in lbs Pre/Post Dialysis Refused Weight 147.546518304975 BP Diastolic BP Location Tested BP Systolic BP Type 68 104 Fetus Heart Rate Present Fetus Movement Comments [...] Domestic Partner Domestic Partner Phone Father Name Journeyman Welder Status 02/08/20 24 1 CLOSED Fetus Data First Name Last Name Admitted to NICU Weight (g) Sex Living Outcome Pediatric Complications Fetus ID Race Codes Race Delivery Type , Spontane ous [id number] Satnam Calculation Initial Satnam Date Initial Exam [...]
--- OUTSIDE RECORDS SUMMARY | 2024-08-01 01:35 | XMS_ITS | Encounter Summary ---
Author Organization [facility] Address [address] [place] [address] Phone Care Team Providers Care Utility Supervisor [employer] Name Role Phone Unknown, Notinfile Primary Care Provider Unavail able No, Physician Primary Care Provider [phone] Abelino Stover MD Primary Care Provider No, Physician Primary Care Provider Mckenna Rios DO Primary Care Provider Gabriel Cano MD Unavailable Abelino Stover MD Primary Care Provider Mckenna Rios DO Unavailable [phone] Encounter Details Date Type Department Care Team (Late st Contact Info) Description 04/20/2019 Orders Only [facility] [address] [place] [address] Scanning, Provider Social History Tobacco Use Types Packs/Day Years Used Date Smoking Tobacco: Never Smokeless Tobacco: Never Alcohol Use Standard Drinks/Week Comments Not Currently 0 (1 standard drink = 0.6 oz pur e alcohol) Comments No Sex and Gender Information Value Date Recorded Sex Assigned at Not on file Legal Sex Female 11:17 PM CHILD CARE ATTENDANT Gender Identity Not on file Sexual Orientation Not on file documented as of this encounter Plan of Treatment Upcoming Encounters Date Type Department Care Team (Late Contact Info) Description 08/30/2024 Hospital Encounter [facility] [address] [place] [address] Gabriel Cano MD [address] [place] [id number] documented as of this encounter Procedures Procedure [...] the result is from a facility outside [facility] . 05/09/2021 05/09/2021 05/22/2021 3:05 AM CHILD CARE ATTENDANT COVID: Suspected 08/14/2022 08/14/2022 08/14/2022 9:17 AM CDT COVID19 08/14/2022 08/14/2022 08/24/2022 3:06 AM CDT COVID: Recovered Comment:Added based on recent COVID infection. 08/24/2022 10/03/2022 11/22/2022 3:05 AM C DT documented as of this encounter Care Teams Utility Supervisor [employer] Relationship Specialty Start Date End Date Unknown, Notinfile PCP - General 12/27/18 04/23/19 No, Physician PCP - General 04/24/19 01/14/21 Abelino Stover MD PCP - General Family Medicine 01/15/21 03/28/21 No, Physician PCP - General 03/29/21 05/13/21 Mckenna Rios DO [address] [place] [address] PCP - General Obstetrics and Gynecology 05/14/21 06/16/21 Abelino Stover MD PCP - General Family Medicine 11/19/21 Gabriel Cano MD [address] [place] [address] Territory Sales Manager Obstetrics and Gynecology 06/29/21 Mckenna Rios DO [address] [place] [address] Consulting Physician Obstetrics and Gynecology 11/04/22 documented as of this encounter
--- OUTSIDE RECORDS SUMMARY | 2024-08-01 01:35 | XMS_ITS | Encounter Summary ---
Author Organization [facility] Healthcare Address [address] [place] [address] Care Team Providers Care Family Educator Name Role Phone Wesly Shipley MD Primary Care Provider Miscellaneous, Not In File Primary Care Provider Unavailable Unknown, Notinfile Primary Care Provider Unavail able No, Physician Primary Care Provider [phone] Abelino Stover MD Primary Care Provider No, Physician Primary Care Provider [phone] Mckenna Rios DO Primary Care Provider Gabriel Cano MD Unavailable Abelino Stover MD Primary Care Provider Mckenna Rios DO Unavailable Encounter Details Date Type Department Care Team (Late st Contact Info) Description 12/03/2017 Documentation [facility] [address] [place] [id number] Zoe Mendez MD [address] [place] [id number] Social History Tobacco Use Types Packs/Day Years Used Date Smoking Tobacco: Never Smokeless Tobacco: Never Alcohol Use Standard Drinks/Week Comments No 0 (1 standard drink = 0.6 oz pur e alcohol) Comments No Sex and Gender Information Value Date Recorded Sex Assigned at Not on file Legal Sex Female 11:17 PM GASOLINE SERVICE ATTENDANT Gender Identity Not on file Sexual Orientation Not on file documented as of this encounter Plan of Treatment Upcoming Encounters Date Type Department Care Team (Late st Contact Info) Description 08/30/2024 Hospital Encounter [facility] [address] [place] [address] Gabriel Cano MD [address] [place] [address] documented as of this encounter Visit Diagnoses Not on filedocumented in this encounter Additional Health Concerns Infection Onset Date Last Indicated Resolved Time COVID19 Comment:Added from the Screening question BPA, identifying patients that tested positive for COVID in the last 14 days and the result is from a facility outside [facility] . 05/09/2021 05/09/2021 05/22/2021 3:05 AM GASOLINE SERVICE ATTENDANT COVID: Suspected 08/14/2022 08/14/2022 08/14/2022 9:17 AM CDT COVID19 08/14/2022 08/14/2022 08/24/2022 3:06 AM CDT COVID: Recovered Comment:Added based on recent COVID infection. 08/24/2022 10/03/2022 11/22/2022 3:05 AM C DT documented as of this encounter Care Teams Family Educator Relationship Specialty Start Date End Date Wesly Shipley MD [address] [place] [address] DR MADRID B [address] [address] PCP - General Obstetrics and Gynecology 10/22/17 02/14/18 Miscellaneous, Not In File PCP - General 02/15/18 12/26/18 Unknown, Notinfile PCP - General 12/27/18 04/23/19 No, Physician PCP - General 04/24/19 01/14/21 Abelino Stover MD PCP - General Family Medicine 01/15/21 03/28/21 No, Physician PCP - General 03/29/21 05/13/21 Mckenna Rios DO [address] [place] [address] PCP - General Obstetrics and Gynecology 05/14/21 06/16/21 Abelino Stover MD PCP - General Family Medicine 11/19/21 Gabriel Cano MD [address] [place] [address] [address] Semi Conductor Assembler Obstetrics and Gynecology 06/29/21 Mckenna Rios DO [address] [place] [id number] Consulting Physician Obstetrics and Gynecology 11/04/22 documented as of this encounter
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
--- OUTSIDE RECORDS SUMMARY | 2024-08-01 01:36 | XMS_ITS | Encounter Summary ---
Author Organization [facility] Care Team Providers Care Primer Inserting Machine Adjuster Name Role Phone Provider, None [facility] Mur[facility] MD Unavailable [phone] Encounter Details Date Type Department Care Team (Latest Contact Info) Description 07/31/2024 Travel Social History Tobacco Use Types Packs/Day Years [...] on file documented as of this encounter Visit Diagnoses Not on filedocumented in this encounter Care Teams Primer Inserting Machine Adjuster Relationship Specialty Start Date End Date Provider, None [place] PCP - General 01/21/16 Farhat Murillo MD #[address] [address] General Surgery 10/22/16 documented as of this encounter
[2024-08-01] MEDS: KETOROLAC 15 MG/ML VIAL (*BKC) IV PUSH (02:01)
[2024-08-01] MEDS: SODIUM CHLORIDE 0.9% IV 2,000 ML 999 ML IV CONT (02:07)
[2024-08-01 02:11] VITALS: BP 115/84; PULSE 60; RESP 12; O2SAT 98
[2024-08-01 02:25] VITALS: BP 94/66; PULSE 58; RESP 11; O2SAT 98
[2024-08-01 02:32] VITALS: BP 103/67; PULSE 55; RESP 19; O2SAT 99
--- NOTE | 2024-08-01 02:35 | ED.GENADULT ---
HPI - General Adult General Chief complaint: Abdominal Pain Stated complaint: abd pain, cramping Time Seen by Provider: 08/01/24 01:26 History of Present Illness HPI narrative: This is a 24-year-old female on PPD 2 presenting for abdominal pain. Since the delivery the patient has been having severe uterine cramps. She had been discharged from our hospital yesterday morning and it got home, she then re-presented to an outside hospital urine pain and was transferred here as her child is still in our hospital in this ear she had her delivery. Patient has been taking the prescribed Motrin Tylenol for cramps. She is denying fevers chills nausea vomiting diarrhea or foul-smelling lochia. She denies urinary symptoms. Related Data Home Medications ?Medication ?Instructions ?Recorded ?Confirmed ?Last Taken ?Type levetiracetam 1,000 mg tablet 1,000 mg PO DAILY 10/10/19 07/29/24 10/24/19 History vitamins-iron fumarate 27 1 tablet PO DAILY 10/10/19 07/29/24 10/24/19 History mg iron-folic acid 0.8 mg tablet ( Vitamin) valacyclovir 500 mg tablet 10/10/19 10/24/19 History Allergies Allergy/AdvReac Type Severity Reaction Status Date / Time morphine Allergy Hives Verified 08/01/24 00:40 [facility] Family History Family History Mother Breast cancer Social History Social History Smoking status: Former smoker Tobacco type: cigarettes and e-cigarettes/vaping Second hand tobacco smoke exposure: No Smoking end date: 12/03/23 Substance use: never Do You Feel Safe in your Home?: Yes Lack of Transportation: YES Lack of Food: Never True Current Housing: I Have Housing Concerned About Future Housing: YES Difficulty Paying Gas/Electric Bills: YES Difficulty Paying for Meds: No Currently Unemployed: No Education: High School Diploma/GED Difficulty w/ Childcare or Family Care: No Gender identity (if verbalized by the patient): Female Spiritual care concerns: No Exam Narrative: APPEARANCE: No apparent distress. Head: atraumatic. EYES: EOMI, NOSE: Atraumatic NECK: Trachea midline RESPIRATORY: No increased rate of breathing CTAB CARDIOVASCULAR: RRR, ABDOMINAL: Tenderness in the suprapubic region without guarding rebound MUSCULOSKELETAl: No obvious deformities NEURO: Alert. Moving 4/4 extremities SKIN:: Warm, dry. Normal color PSYCHIATRIC: Normal affect Course Vital Signs Vital signs: Vital Signs Temperature 97.9 F 08/01/24 00:30 Pulse Rate 61 08/01/24 00:30 Respiratory Rate 18 08/01/24 00:30 Blood Pressure 112/69 08/01/24 00:30 Pulse Oximetry 99 08/01/24 00:30 Oxygen Delivery Room Air 08/01/24 00:30 Temperature 97.9 F 08/01/24 00:30 Pulse Rate 55 L 08/01/24 02:32 Respiratory Rate 19 08/01/24 02:32 Blood Pressure 103/67 08/01/24 02:32 Pulse Oximetry 99 08/01/24 02:32 Oxygen Delivery Room Air 08/01/24 01:12 Medical Decision Making MDM Narrative Medical decision making narrative: -Course: 24-year-old female presenting on day 2 with uterine pain. Pain is very episodic and while she is in significant pain when happens after it passes she is resting comfortably with no distress. Laboratory studies showed an indeterminate white count fo 12. . Pelvic exam was unremarkable. cultures were obtained. Case was discussed with Dr. Coughlin and the patient had similar behavior earlier. We do not think that this is endometritis and is more likely uterine spasms/cramping from her delivery. She will be staying in the hospital to go see her baby so if her condition is to change she will be close by. Patient will be discharged. -DDX includes but is not limited to: uterine cramping, endometritis Vital Signs Vital Signs: Vital Signs Temperature 97.9 F 08/01/24 00:30 Pulse Rate 61 08/01/24 00:30 Respiratory Rate 18 08/01/24 00:30 Blood Pressure 112/69 08/01/24 00:30 Pulse Oximetry 99 08/01/24 00:30 Oxygen Delivery Room Air 08/01/24 00:30 Temperature 97.9 F 08/01/24 00:30 Pulse Rate 55 L 08/01/24 02:32 Respiratory Rate 19 08/01/24 02:32 Blood Pressure 103/67 08/01/24 02:32 Pulse Oximetry 99 08/01/24 02:32 Oxygen Delivery Room Air 08/01/24 01:12 Lab Data 08/01/24 00:51 08/01/24 00:51 Labs: Lab Results 08/01/24 Range/Units 00:51 WBC 12.1 H (4.5-10.0) K/mm3 RBC 4.05 L (4.2-5.4) M/mm3 Hgb 10.7 L (12.0-15.0) g/dL Hct 32.9 L (37.0-47.0) % MCV 81.2 (80-100) fl MCH 26.4 (26-34) pg MCHC 32.5 (32-36) g/dl RDW 13.1 (11.5-14.5) % Plt Count 203 (150-375) k/mm3 MPV 10.9 H (7.4-10.4) fl Immature Gran % (Auto) 0.6 H (0-0.5) % Neut % (Auto) 79.4 H (45.5-73.1) % Lymph % (Auto) 15.6 L (18.3-44.2) % [place] % (Auto) 3.1 (2.6-8.5) % Eos % (Auto) 0.9 (0-4.4) % Baso % (Auto) 0.4 (0.2-1.2) % Lymph # (Auto) 1.89 (0.9-3.2) K/mm3 [place] # (Auto) 0.4 (0.1-0.6) K/mm3 Eos # (Auto) 0.1 (0-0.3) K/mm3 Baso # (Auto) 0.1 (0.0-0.1) K/mm3 Abs Immat Gran (auto) 0.07 H (0.00-0.031) K/mm3 Absolute Neuts (auto) 9.6 H (1.3-6.7) K/mm3 Absolute Nucleated RBC 0.000 (0.0-0.012) K/mm3 Nucleated RBC % 0.0 (0.0-0.2) % Sodium 137 (137-145) mmol/L Potassium 3.9 (3.4-5.0) mmol/L Chloride 107 (98-107) mmol/L Carbon Dioxide 22 (22-30) mmol/L Anion Gap 8 (4-12) mmol/L BUN 8 (7-17) mg/dL Creatinine 0.69 L (0.7-1.0) mg/dL Estim Creat Clear Calc 100 ml/min Estimated GFR > 60 (59 - ) Glucose 89 (65-110) mg/dL Calcium 9.3 (8.4-10.2) mg/dL Total Bilirubin 0.3 (0.2-1.3) mg/dL AST 25 (14-36) U/L ALT 19 (6-35) U/L Alkaline Phosphatase 113 (38-126) U/L Total Protein 6.0 L (6.3-8.2) g/dL Albumin 3.2 L (3.5-5.1) g/dL Lipase 50 (23-300) U/L Discharge Plan Discharge Clinical Impression: Uterine cramping Patient Disposition: Home, Self-Care Condition: Stable Instructions: Antibiotic Form, Abdominal Pain (ED) Additional Instructions: Please use Motrin/Tylenol for uterine cramps. Please follow-up with your OBGYN for further management. If you develop fevers, severe abdominal pain or foul-smelling discharge please return to the ED for re-evaluation. Patient Language: Panamanian Prescriptions: No Action docusate sodium 100 mg Capsule 100 mg PO BID PRN (Reason: Constipation) Qty: 60 0RF ibuprofen 600 mg Tablet 600 mg PO Q6H PRN (Reason: Cramping) Qty: 30 0RF acetaminophen 500 mg tablet 1,000 mg PO Q8H PRN (Reason: pain) Qty: 30 0RF Vitamin 27 mg iron- 0.8 mg Tablet 1 tablet PO DAILY levetiracetam 1,000 mg tablet 1,000 mg PO DAILY valacyclovir 500 mg tablet Follow-up/Referrals: PHYSICIAN,[employer] [Primary Care Provider] -
[2024-08-01 03:34] LABS: Add Urine Microscopic? YES; Appearance Urine Clear (Clear); Bacteria Urine None Seen /hpf; Bilirubin Urine Negative (Negative); Blood Urine 2+ (Negative); Color Urine Yellow (Yellow); Glucose Urine UA Negative (Negative); Ketones Urine Negative (Negative); Leukocyte Esterase Ur Trace LEU/UL (Negative); Nitrate Urine Negative (Negative); Non Pathogenic Casts 0-2; Protein Urine Trace mg/dL (Negative); RBC Urine 21-50 /hpf (0-2); Specific Grav Ur 1.022 (1.001-1.035); Squamous Epithelial Cell Urine None Seen /hpf (Few)
[2024-08-01 04:29] LABS: Trichomonas Vag PCR NOT DETECTED (NOT DETECTE)
[2024-08-01 04:54] LABS: Chlamydia trachomatis NOT DETECTED (NOT DETECTE); Neisseria gonorrhoeae PCR NOT DETECTED (NOT DETECTE)
== END 2024-08-01 04:11 | disposition home or self-care (01) ==
PROVIDERS: Emergency Provider Emergency Medicine
DX: O99.893 Other specified diseases and conditions complicating puerperium (principal); N94.89 Other specified conditions associated with female genital organs and menstrual cycle; Z87.891 Personal history of nicotine dependence
CPT/HCPCS: 36415; 80053; 81001; 83690; 85025; 87070; 87086; 87491; 87591; 87661; 96361; 96374; 96375; 99284; J1171; J1885; J7030